=== PATIENT | male | born 1945 | race Caucasian/White ===

== ENCOUNTER 2016-06-09 12:15 | Emergency (ER) | payer OTHER, MEDICARE ==
[~2016-06-09] VITALS: Ht 170.2 cm; Wt 81.6 kg
[~2016-06-09 12:15] MED LIST: ALDACTONE25 MG PO; FLAG500 PO; FOLPLEX 2.2 TA1 EACH PO; INVOKANA300 MG PO; IRON325 M3 PO; JANUMET 50-1,01 EACH PO; JANUMET 500 MG-1 TAB PO; LACTULOSE20 GM/30 M PO; LANTUS SOL100 UNIT/1 SC; LISINOPRIL2.5 MG PO; MEPHYTON5 M1 PO; PROPRANOLOL HCL10 M1 PO; PROTONIX40 M3 PO; TRAMADOL HCL50 M1 PO; TRAZODONE HCL50 M1 PO; VITAMIN D1000 UNIT PO; VITAMIN D250000 UNIT PO; VITAMIN D50000 IU PO; VOLTAREN100 GM TOP; ZOCOR40 M1 PO
--- NOTE | 2016-06-09 12:38 | ED GI/GU/ABDOMINAL COMPLAINT ---
See Addendum History of Present Illness General Chief Complaint: Abdominal Pain/Flank Pain Stated Complaint: L FLANK PAIN, RECENT PASSING OF KIDNEY STONE Source: patient, family Exam Limitations: no limitations Vital Signs & Intake/Output Vital Signs & Intake/Output Vital Signs Date Time Temp Pulse Resp B/P Pulse O2 O2 Flow FiO2 Ox Delivery Rate 06/09 1459 99.0 78 20 163/78 93 Room Air 06/09 1316 98.7 80 20 147/70 96 Room Air 06/09 1224 98.9 79 18 148/71 98 Room Air Room Air Allergies Coded Allergies: NO KNOWN ALLERGIES (01/10/15) Reconcile Medications Cholecalciferol (Vitamin D3) (Vitamin D) 1,000 UNIT TABLET 4 TAB PO DAILY VITAMIN SUPPORT (Reported) Cyanocobalamin/FA/Pyridoxine (Folplex 2.2 Tablet) 500 MCG-2.2 MG-25 MG TABLET 1 TAB PO DAILY SUPPLEMENT (Reported) Diclofenac Sodium (Voltaren) 100 GM GEL..GRAM. 1 GM TOP 4 TIMES/DAY Hip pain apply to affected area(s) Ergocalciferol (Vitamin D2) (Vitamin D2) 50,000 UNIT CAPSULE 1 CAP PO QTHURS BONE STRENGTH (Reported) Ferrous Sulfate (IRON) 325 MG (65 MG IRON) TABLET 1 TAB PO DAILY SUPPLEMENT ( Reported) Insulin Glargine,Hum.rec.anlog (Lantus Solostar) 100 UNIT/ML (3 ML) INSULN.PEN 20 UNIT SC QPM DIABETES (Reported) Lactulose 20 GM/30 ML SOLUTION 20 GM PO TID HIGH AMMONIA LEVELS Oxycodone HCl 5 MG TABLET 1 TAB PO BIDP PRN PAIN (Reported) Pantoprazole Sodium (Protonix) 40 MG TABLET.DR 1 TAB PO DAILY ACID REFLUX ( Reported) Phytonadione (Mephyton) 5 MG TABLET 2 TAB PO DAILY VITAMIN K FOR BLEEDING RISK Propranolol HCl 10 MG TABLET 1 TAB PO BID BP (Reported) Rifaximin (Xifaxan) 550 MG TABLET 1 TAB PO BID UNKNOWN (Reported) Simvastatin (Zocor*) 40 MG TABLET 1 TAB PO QPM CHOLESTEROL (Reported) Sitagliptin Phos/Metformin HCl (Janumet 50-1,000 MG Tablet) 1 EACH TABLET 1 TAB PO BID diabetes mellitus Spironolactone (Aldactone) 25 MG TABLET 2 TAB PO 1600 ABDOMINAL ASCITES Tramadol HCl 50 MG TABLET 1 TAB PO Q6P PRN Pain > 7/10 Trazodone HCl 50 MG TABLET 1 TAB PO QPM sleep (Reported) Triage Note: TRIAGE: 70 Y/O MALE PRESETNS WITH RECENT EPISODE OF PASSING KIDNEY STONE AND HEMATURIA. REPORTS AFTER URINALYSIS, "SMALL CRYSTALS WERE STILL SEEN". REPORTS R SIDED FLANK PRESSURE 5-6/10. "IT FEELS LIKE SOMEONE IS PUSHING ON IT." ALSO REPORTS UPON WAKING THIS MORNING, BLOOD NOTED IN RIGHT EAR, RIGHT NARE, AND WAS ABLE TO PRODUCE BLOODY SPUTUM - "NOT MUCH THOUGH." * PATIENT IN WHEELCHAIR SECONADRY TO RECENT FALL ON SATURDAY. FALL RISK BAND APPLIED. Triage Nurses Notes Reviewed? yes HPI: 70-year-old male arrived to triage room 9 for evaluation of abdominal pain. He reports he was seen by Dr. Kimbrough this week for evaluation of the possibility of a kidney stone. He was found to have blood in his urine. He believes he passed the kidney stone on Saturday evening. Last night he started with right upper quadrant abdominal pressure. Some nausea this morning. The pain is intermittent and he describes mildpressure, not really a pain. He denies vomiting or diarrhea. He denies constipation. He denies any fever or chills, chest pain or shortness of breath. He has a history of [place] and has elevated ammonia levels in the past with normal mentation. Last BM last night- soft brown and last ate last evening. no urinary symptoms. (DA ROMERO APRN) Past History Travel History Traveled to [place] past 21 day No Medical History Any Pertinent Medical History? see below for history Neurological: restless leg syndrome EENT: NONE Cardiovascular: hypertension, hyperlipidemia, MITRAL VALVE PROLAPSE Chest pain syndrome Respiratory: NONE Gastrointestinal: GERD, upper GI bleed, Colonic Polyp ASCITES Hepatic: cirrhosis, FATTY LIVER Renal: NONE Musculoskeletal: psoariatic arthritis, spinal stenosis Psychiatric: NONE Endocrine: diabetes Blood Disorders: NONE Cancer(s): NONE WAREHOUSE HELPER/Reproductive: NONE History of MRSA: No History of VRE: No History of CDIFF: No Pneumonia Vaccine: 01/09/15 Surgical History Surgical History: cervical fusion Psychosocial History Who do you live with Spouse Services at Home None What is your primary language Setswana Tobacco Use: Never used ETOH Use: denies use Illicit Drug Use: denies illicit drug use Family History Family History, If Any: MOTHER (Breast cancer needed colectomy). FATHER (Skin CA of unknown type). . Relation not specified for: FH: diabetes mellitus Hx Contributory? No (DA ROMERO APRN) Review of Systems Review of Systems Constitutional: Reports: no symptoms. EENTM: Reports: no symptoms. Respiratory: Reports: no symptoms. Cardiovascular: Reports: no symptoms. GI: Reports: see HPI, abdominal pain, nausea. Genitourinary: Reports: no symptoms. Musculoskeletal: Reports: no symptoms. Skin: Reports: no symptoms. Neurological/Psychological: Reports: no symptoms. Hematologic/Endocrine: Reports: no symptoms. Immunologic/Allergic: Reports: no symptoms. All Other Systems: Reviewed and Negative (DA ROMERO APRN) Physical Exam Physical Exam General Appearance: well developed/nourished, no apparent distress, alert, awake Head: atraumatic, normal appearance Eyes: Bilateral: normal appearance, PERRL, EOMI. Neck: normal inspection, supple, full range of motion Respiratory: normal breath sounds, chest non-tender, no respiratory distress Cardiovascular: regular rate/rhythm Peripheral Pulses: 2+ radial (R), 2+ radial (L) Gastrointestinal: normal bowel sounds, soft, non-tender, no organomegaly Back: normal inspection, normal range of motion Extremities: normal range of motion, pelvis stable Neurologic/Psych: no motor/sensory deficits, awake, alert, oriented x 3, normal gait, normal mood/affect Skin: intact, normal color, warm/dry Core Measures ACS in differential dx? No Severe Sepsis Present: No Septic Shock Present: No (DA ROMERO APRN) Progress Differential Diagnosis: hepatitis, ureterolithiasis, LIVER PATHOLOGY Plan of Care: Orders Procedure Date/time Status EKG 06/09 1243 Active Add-on Test (ER Only) 06/09 1242 Active AMMONIA LEVEL 06/09 1242 Complete Saline Lock 06/09 1235 Active CULTURE,URINE 06/09 1235 Active URINALYSIS 06/09 1235 Complete TROPONIN LEVEL 06/09 1235 Complete LIPASE 06/09 1235 Complete COMPREHENSIVE METABOLIC PANEL 06/09 1235 Complete CBC WITHOUT DIFFERENTIAL 06/09 1235 Complete AMYLASE 06/09 1235 Complete Laboratory Tests 06/09/16 1450: Urine Color YEL, Urine Clarity HAZY H, Urine pH 6.0, Ur Specific Witt 1.020, Urine Protein NEG, Urine Ketones NEG, Urine Nitrite NEG, Urine Bilirubin NEG, Urine Urobilinogen 0.2, Ur Leukocyte Esterase NEG, Ur Microscopic SEDIMENT EXAMINED, Urine RBC >75 H, Urine WBC RARE, Ur Epithelial Cells RARE, Urine Crystals 1+ CA OX H, Urine Hemoglobin LARGE H, Urine Glucose NEG 06/09/16 1248: Ammonia 76 H 06/09/16 1248: Anion Gap 11, Estimated GFR > 60, BUN/Creatinine Ratio 11.1, Glucose 206 H, Calcium 9.1, Total Bilirubin 1.1, AST 48, ALT 45, Alkaline Phosphatase 114, Troponin I < 0.01, Total Protein 6.7, Albumin 3.1 L, Globulin 3.6, Albumin/ Globulin Ratio 0.9 L, Amylase 59, Lipase 172, CBC w Diff NO MAN DIFF REQ, RBC 3.39 L, MCV 87.3, MCH 29.2, RDW 15.4 H, MPV 7.5, Gran % 71.9, Lymphocytes % 12.7 L, Monocytes % 10.7 H, Eosinophils % 4.6, Basophils % 0.1, Absolute Granulocytes 4.9, Absolute Lymphocytes 0.9 L, Absolute Monocytes 0.7 H, Absolute Eosinophils 0.3, Absolute Basophils 0, PUBS MCHC 33.4 Microbiology 06/09 1450 URINE ROUT: Urine Culture - RECD Initial ED EKG: Sinus rhythm with nonspecific ST-T wave changes no change from previous. Prior EKG: unchanged Comments: Explained blood work results to family and patient. CT scan results pending. PATIENT: CUATE RIZVI PRESENT AGE: 70 PATIENT ACCOUNT NO: [id number] : 45 LOCATION: [facility] ORDERING PHYSICIAN: DA ROMERO APRN SERVICE DATE: 06/09/16 EXAM TYPE: CAT - CT ABD & PELVIS W IV CONTRAST EXAMINATION: CT ABDOMEN AND PELVIS WITH CONTRAST CLINICAL INFORMATION: 70-year-old man with elevated ammonia level and right upper quadrant pain. COMPARISON: 09/13/2015 ultrasound, 01/10/2015 CT TECHNIQUE: Multidetector volumetric imaging was performed of the abdomen and pelvis before and after the IV administration of 95 mL of Optiray 320 intravenous contrast. Sagittal and coronal reformatted images were obtained on the technologist's workstation. DLP: 683 mGy-cm FINDINGS: The lung bases are clear. There are esophageal varices seen around the lower esophagus. These were also present on the prior CT. There is mild periportal edema. There are markedly dilated perisplenic veins with a left splenorenal shunt. There are dilated veins along the lesser curve of the stomach. Overall, findings suggest elevated portal venous pressure. Trace fluid is seen around the liver and there is trace ascites in the deep pelvis as well. There may be mild wall thickening of the second and third part of the duodenum. There is moderate splenomegaly. No focal hepatic lesion is visible. The pancreas, adrenals, and kidneys are otherwise normal. There are gallstones seen within a partially contracted gallbladder. The gallbladder wall itself appears edematous. Nondilated loops of large and small bowel are unremarkable in appearance. The appendix and terminal ileum are not inflamed. The prostate, seminal vesicles, and bladder are normal in appearance. IMPRESSION: 1. There may be mild wall thickening of the second and third part of the duodenum. 2. Additional imaging findings are similar to the prior exam and suggest elevated portal venous pressure with a esophageal and gastrohepatic varices, a left splenorenal shunt, and a small amount of ascites. DICTATED BY: HOLLAND VILLA MD DATE/TIME DICTATED:06/09/161440 BATCH TANK CONTROLLER:VERNELL DATE/TIME TRANSCRIBED:06/09/161440 Cuate and his understand CAT scan results. Cuate does not want to be admitted and his is in agreement. He ambualtes with no issues. Mentating well. He knows he is suppose to take Lactulose but doesn't because of inconvenience. He understands the need for it and will start to adhere to call regimen. Case Discussed with Dr. Mo. (DA ROMERO APRN) Departure Departure Time of Disposition: 1514 Disposition: HOME OR SELF CARE Condition: Stable Clinical Impression Primary Impression: Abdominal pain Qualifiers: Abdominal location: right upper quadrant Qualified Code: R10.11 - Right upper quadrant pain Secondary Impressions: Increased ammonia level Referrals: NNEKA PRADO,DORIAN Morrison (PCP/Family) Additional Instructions: Follow-up with Dr. Kimbrough and GI this week. Take lactulose as directed when you get home. Return to the emergency department for any increased pain, fever, altered mental status. Please return for any concerning symptoms. Departure Forms: Customer Survey General Discharge Information (DA ROMERO APRN) PA/TROLLEY CAR OPERATOR Co-Sign Statement Statement: ED Attending supervision documentation- x I saw and evaluated the patient. I have also reviewed all the pertinent lab results and diagnostic results. I agree with the findings and the plan of care as documented in the PA's/TROLLEY CAR OPERATOR's documentation. [] I have reviewed the ED Record and agree with the PA's/TROLLEY CAR OPERATOR's documentation. [] Additions or exceptions (if any) to the PAs/TROLLEY CAR OPERATOR's note and plan are summarized below: [] (PHUC PRADO,LULU)
[2016-06-09 13:11] LABS: ABSOLUTE BASOPHIL COUNT 0 /CUMM (0.0-0.2); ABSOLUTE EOSINOPHIL COUNT 0.3 /CUMM (0.0-0.7); ABSOLUTE GRANULOCYTE CT 4.9 /CUMM (1.4-6.5); ABSOLUTE LYMPH COUNT 0.9 /CUMM (1.2-3.4); ABSOLUTE MONOCYTE COUNT 0.7 /CUMM (0.10-0.60); BASOPHIL % 0.1 % (0.0-2.0); EOSINOPHIL % 4.6 % (0-5); HEMATOCRIT 29.6 % (42-52); MEAN CORPUSCULAR HGB 29.2 PG (27.0-31.0); MEAN CORPUSCULAR HGB CONC 33.4 G/DL (33.0-37.0); MEAN CORPUSCULAR VOLUME 87.3 FL (80.0-94.0); MEAN PLATELET VOLUME 7.5 FL (7.4-10.4); RBC DISTRIBUTION WIDTH 15.4 % (11.5-14.5); RED BLOOD CELL CT 3.39 /CUMM (4.70-6.10); WHITE BLOOD CELL COUNT 6.8 /CUMM (4.8-10.8)
[2016-06-09 13:12] LABS: GRANULOCYTE % 71.9 % (42.2-75.2)
[2016-06-09 13:14] LABS: PLATELET COUNT 78 /CUMM (130-400)
[2016-06-09] MEDS ORDERED: OXYCODONE HCL5 M1 PO (14:02)
[2016-06-09] MEDS ORDERED: XIFAXAN550 M1 PO (14:06)
--- NOTE | 2016-06-09 14:51 | CT SCAN REPORT ---
EXAMINATION: CT ABDOMEN AND PELVIS WITH CONTRAST CLINICAL INFORMATION: 70-year-old man with elevated ammonia level and right upper quadrant pain. COMPARISON: 09/13/2015 ultrasound, 01/10/2015 CT TECHNIQUE: Multidetector volumetric imaging was performed of the abdomen and pelvis before and after the IV administration of 95 mL of Optiray 320 intravenous contrast. Sagittal and coronal reformatted images were obtained on the technologist's workstation. DLP: 683 mGy-cm FINDINGS: The lung bases are clear. There are esophageal varices seen around the lower esophagus. These were also present on the prior CT. There is mild periportal edema. There are markedly dilated perisplenic veins with a left splenorenal shunt. There are dilated veins along the lesser curve of the stomach. Overall, findings suggest elevated portal venous pressure. Trace fluid is seen around the liver and there is trace ascites in the deep pelvis as well. There may be mild wall thickening of the second and third part of the duodenum. There is moderate splenomegaly. No focal hepatic lesion is visible. The pancreas, adrenals, and kidneys are otherwise normal. There are gallstones seen within a partially contracted gallbladder. The gallbladder wall itself appears edematous. Nondilated loops of large and small bowel are unremarkable in appearance. The appendix and terminal ileum are not inflamed. The prostate, seminal vesicles, and bladder are normal in appearance. IMPRESSION: 1. There may be mild wall thickening of the second and third part of the duodenum. 2. Additional imaging findings are similar to the prior exam and suggest elevated portal venous pressure with a esophageal and gastrohepatic varices, a left splenorenal shunt, and a small amount of ascites.
[2016-06-09 14:59] VITALS: BP 163/78
== END 2016-06-09 15:46 ==
LOC: ERH 12:15
PROVIDERS: Nurse Practitioner Family
DX: R10.11 Right upper quadrant pain (principal); R82.99 Other abnormal findings in urine; R31.9 Hematuria, unspecified
CPT/HCPCS: 74177; 81001; 87086; 93005; 93010; 96361; 96374; J2405

== ENCOUNTER 2017-05-25 10:02 | Inpatient (IN) | payer OTHER, MEDICARE ==
[~2017-05-25] VITALS: Ht 167.6 cm; Wt 81.6 kg
[~2017-05-25 10:02] MED LIST changes: +FISH OIL 1,2001 EACH PO; +FOLIC ACID1 M1 PO; +MILK THISTLE175 M1 PO; +OXYCODONE HCL5 M1 PO; +PROBIOTIC1 EACH PO; -VITAMIN D1000 UNIT PO; +VITAMIN D2000 UNI1 PO; +XIFAXAN550 M1 PO
--- NOTE | 2017-05-25 10:23 | ED GENERAL ADULT ---
History of Present Illness General Chief Complaint: General Adult Stated Complaint: WEAKNESS Source: patient, family, old records Exam Limitations: no limitations Vital Signs & Intake/Output Vital Signs & Intake/Output Vital Signs Date Time Temp Pulse Resp B/P B/P Pulse O2 O2 Flow FiO2 Mean Ox Delivery Rate 05/25 1448 Room Air 05/25 1229 97.6 76 18 133/82 98 Room Air 05/25 1011 96.9 88 18 118/78 98 Room Air Room Air Allergies Coded Allergies: No Known Allergies (02/06/17) Reconcile Medications Cholecalciferol (Vitamin D3) (Vitamin D) 2,000 UNIT TABLET 1 TAB PO DAILY VITAMIN SUPPORT (Reported) Ergocalciferol (Vitamin D2) (Vitamin D2) 50,000 UNIT CAPSULE 1 CAP PO QTHURS BONE STRENGTH (Reported) Ferrous Sulfate (IRON) 325 MG (65 MG IRON) TABLET 1 TAB PO DAILY SUPPLEMENT ( Reported) Fish Oil/Dha/Epa (Fish Oil 1,200 MG Fish Oil) 1,200 MG-144 MG-216 MG CAPSULE 1 CAP PO DAILY SUPPLEMENT (Reported) Folic Acid 1 MG TABLET 1 TAB PO DAILY VITAMIN SUPPORT (Reported) Insulin Glargine,Hum.rec.anlog (Lantus Solostar) 100 UNIT/ML (3 ML) INSULN.PEN 20 UNIT SC QPM DIABETES (Reported) Lactobacillus Acidophilus (Probiotic) 10 BILLION CELL CAPSULE 1 CAP PO DAILY GI (Reported) Lactulose 20 GM/30 ML SOLUTION 20 GM PO DAILY Decrease the am[place] Milk Thistle Seed Extract (Milk Thistle) 175 MG CAPSULE 1 CAP PO DAILY SUPPLEMENT (Reported) Phytonadione (Mephyton) 5 MG TABLET 2 TAB PO DAILY VITAMIN K FOR BLEEDING RISK Propranolol HCl 10 MG TABLET 1 TAB PO BID BP (Reported) Rifaximin (Xifaxan) 550 MG TABLET 1 TAB PO BID UNKNOWN (Reported) Simvastatin (Zocor*) 40 MG TABLET 1 TAB PO QPM CHOLESTEROL (Reported) Sitagliptin Phos/Metformin HCl (Janumet 50-1,000 MG Tablet) 1 EACH TABLET 1 TAB PO BID diabetes mellitus Trazodone HCl 50 MG TABLET 1 TAB PO QPM sleep (Reported) Triage Note: PT TO ED WITH C/O "I HAVE FELT TIRED ON AND OFF SINCE SATURDAY". HX ANEMIA, CIRRHOSIS OF LIVER, ON DIURETICS PER FAMILY. "HE TAKES LACTULOSE". Triage Nurses Notes Reviewed? yes Onset: Gradual Duration: week(s): Timing: recent history Injury Environment: home Severity: moderate HPI: 71YO male with hx of non alcoholic fatty liver, hepatic encephalopathy on lactulose, anemia, thrombocytopenia, HTN presents to ED complaining of worsening fatigue for the past week. Patient's states that he has been on Lasix and spironolactone for lower extremity and abdominal swelling, recently discontinued on saturday as swelling had improved and they were worried about dehydration. states that patient has been more confused beginning Saturday, will forget things they recently talked about, is unsure about what time it is. They deny recent fall or head trauma, abdominal pain, chest pain, dyspnea, cough, fevers, chills. (Tenisha Jaimes) Past History Travel History Traveled to [place] past 21 day No Medical History Any Pertinent Medical History? see below for history Neurological: dizziness, restless leg syndrome EENT: NONE Cardiovascular: hypertension, hyperlipidemia, MITRAL VALVE PROLAPSE Chest pain syndrome Respiratory: NONE Gastrointestinal: GERD, upper GI bleed, Colonic Polyp ASCITES Hepatic: cirrhosis, FATTY LIVER Renal: NONE Musculoskeletal: psoariatic arthritis, spinal stenosis Psychiatric: NONE Endocrine: diabetes Blood Disorders: NONE Cancer(s): NONE BANK EXAMINER/Reproductive: NONE History of MRSA: No History of VRE: No History of CDIFF: No Surgical History Surgical History: cervical fusion THORACIC FUSION Psychosocial History Who do you live with Spouse Services at Home None What is your primary language Macedonian Tobacco Use: Never used ETOH Use: denies use Illicit Drug Use: denies illicit drug use Family History Family History, If Any: MOTHER (Breast cancer needed colectomy). FATHER (Skin CA of unknown type). . Relation not specified for: FH: diabetes mellitus Hx Contributory? No (Tenisha Jaimes) Review of Systems Review of Systems Constitutional: Reports: see HPI. EENTM: Reports: no symptoms. Respiratory: Reports: no symptoms. Cardiovascular: Reports: no symptoms. GI: Reports: see HPI. Genitourinary: Reports: no symptoms. Musculoskeletal: Reports: see HPI. Skin: Reports: no symptoms. Neurological/Psychological: Reports: see HPI. Hematologic/Endocrine: Reports: no symptoms. Immunologic/Allergic: Reports: no symptoms. All Other Systems: Reviewed and Negative (Tenisha Jaimes) Physical Exam Physical Exam General Appearance: well developed/nourished, no apparent distress, alert, awake Head: atraumatic, normal appearance Eyes: Bilateral: normal appearance, PERRL, EOMI. Ears, Nose, Throat: normal pharynx, hearing grossly normal Neck: normal inspection, supple, full range of motion Respiratory: normal breath sounds, no respiratory distress, lungs clear Cardiovascular: regular rate/rhythm, normal peripheral pulses Peripheral Pulses: 2+ radial (R), 2+ radial (L) Gastrointestinal: normal bowel sounds, soft, non-tender, no organomegaly, mild distention Back: normal inspection, normal range of motion Extremities: normal inspection, normal range of motion, no edema Neurologic/Psych: no motor/sensory deficits, awake, alert, oriented x 3, normal mood/affect, psychiatry adult physician II-XII nml as tested Skin: intact, warm/dry, pallor Core Measures ACS in differential dx? Yes CVA/TIA Diagnosis: No Sepsis Present: No Sepsis Focused Exam Completed? No (Laura MOORE,Tenisha Brownlee) Progress Differential Diagnoses I considered the following diagnoses in my evaluation of the patient: [Hepatic encephalopathy, acute blood loss anemia, UTI, ascites, SBP] Plan of Care: Orders Procedure Date/time Status Consistent Carbohydrate 3 05/26 B Active Pathway - chart 05/25 1622 Active House Staff 05/25 1622 Active ED Holding Orders 05/25 1601 Active Admit to inpatient 05/25 1601 Active Vital Signs 05/25 1601 Active Code Status 05/25 1601 Active Patient Data 05/25 1528 Active CULTURE,URINE 05/25 1521 Active URINALYSIS 05/25 1521 Active LACTIC ACID 05/25 1313 Complete LEUKOCYTE POOR (PACKED CELLS) 05/25 1252 Active AMMONIA 05/25 1015 Complete PARTIAL THROMBOPLASTIN TIME 05/25 1014 Complete PROTHROMBIN TIME 05/25 1014 Complete TYPE & SCREEN (NOT X-MATCH) 05/25 1014 Active LACTIC ACID 05/25 1013 Complete RAPID VIRAL INFLUENZA A 05/25 1011 Complete TROPONIN LEVEL 05/25 1011 Complete MAGNESIUM 05/25 1011 Complete COMPREHENSIVE METABOLIC PANEL 05/25 1011 Complete CBC WITHOUT DIFFERENTIAL 05/25 1011 Complete EKG 05/25 1011 Active VTE Mechanical Prophylaxis 05/25 UNK Active Intake & Output 05/25 UNK Active Current Medications Sig/Krista Start time Last Medication Dose Stop Time Status Admin Sodium Chloride 1,000 ML ONCE ONE 05/25 1515 AC (Normal Saline 0.9%) 05/25 2154 Laboratory Tests 05/25/17 1346: Lactic Acid 4.0 H 05/25/17 1130: Ammonia 96 H 05/25/17 1020: Lactic Acid 2.8 H 05/25/17 1020: Anion Gap 11, Estimated GFR > 60, BUN/Creatinine Ratio 18.6, Glucose 250 H, Calcium 9.0, Magnesium 1.7, Total Bilirubin 0.9, AST 48, ALT 36, Alkaline Phosphatase 152 H, Troponin I < 0.01, Total Protein 6.2 L, Albumin 2.9 L, Globulin 3.3, Albumin/Globulin Ratio 0.9 L, PT 15.2 H, INR 1.39 H, APTT 35, CBC w Diff NO MAN DIFF REQ, RBC 2.77 L, MCV 86.3, MCH 27.3, MCHC 31.7 L, RDW 16.2 H, MPV 8.0, Gran % 71.3, Lymphocytes % 14.6 L, Monocytes % 9.3, Eosinophils % 4.5, Basophils % 0.3, Absolute Granulocytes 3.7, Absolute Lymphocytes 0.8 L, Absolute Monocytes 0.5, Absolute Eosinophils 0.2, Absolute Basophils 0 Microbiology 05/25 1521 URINE ROUT: Urine Culture - ORD 05/25 1130 NASOPHARYN: Influenza Virus A & B Rapid Smear - COMP Patient with low H/H compared to prior studies. Patient also with elevated ammonia. Electrolytes are within normal limits, BUN/creatinine within normal limits. Spoke with Dr. Eaton regarding this patient -recommends ultrasound to further assess for ascites, will require diagnostic tap to rule out SBP if ascites present. No blood transfusion is required at this time per Dr. Eaton. Dr. Eaton recommended hospital admission for gastroenterology consult given patient's confusion in setting of chronic liver pathology. Patient requires possible IV fluids, monitoring of electrolytes and mental status, further gastroenterology workup. Ultrasound shows no ascites. Dr. Carvalho spoke with hospitalist regarding this patient's general medicine admission. Diagnostic Imaging: Viewed by Me: Radiology Read, Ultrasound. Discussed w/RAD: Radiology Read, Ultrasound. Radiology Impression: PATIENT: CUATE RIZVI PRESENT AGE: 71 PATIENT ACCOUNT NO: [id number] : 45 LOCATION: [facility] ORDERING PHYSICIAN: Tenisha MOORE SERVICE DATE: 05/25/17132 EXAM TYPE: US - US-COMPLETE ABDOMEN EXAMINATION: US ABDOMEN COMPLETE CLINICAL INFORMATION: Altered mental status and weakness. Evaluate liver and evaluate for ascites. History of liver disease. COMPARISON: Abdomen ultrasound from 02/27/2017. Abdomen CT from 02/06/2017. TECHNIQUE: Real-time imaging of the abdominal viscera. FINDINGS: PANCREAS: Normal. ABDOMINAL AORTA: The aorta is suboptimally visualized (obscured by bowel gas). INFERIOR VENA CAVA: Visualized portions are normal. LIVER: Liver has coarse, hyperechoic echotexture and nodular contour, consistent with cirrhosis. No evidence of hepatic mass or intrahepatic bile duct dilatation. GALLBLADDER: Gallbladder contains a few mobile, calcified stones. No gallbladder wall edema or pericholecystic fluid. COMMON BILE DUCT: Normal in caliber measuring 0.3 cm in diameter. RIGHT KIDNEY: Normal. No hydronephrosis. No renal calculi or focal parenchymal lesions. The kidney measures 11.3 cm in maximum dimension. LEFT KIDNEY: Normal. No hydronephrosis. No renal calculi or focal parenchymal lesions. The kidney measures 11.8 cm in maximum dimension. SPLEEN: Spleen measures up to 14.1 cm maximum dimension. The splenic vein appears mildly dilated. FREE FLUID: None. IMPRESSION: 1. Hepatic cirrhosis and splenomegaly. No ascites or other new finding compared to 02/27/2017. 2. Cholelithiasis without evidence of acute cholecystitis. DICTATED BY: Lucas Parra MD DATE/TIME DICTATED:05/25/171457 TANK CAR LOADER:VERNELL DATE/TIME TRANSCRIBED:05/25/171457 CONFIDENTIAL, DO NOT COPY WITHOUT APPROPRIATE AUTHORIZATION. <Electronically signed in Other Vendor System> SIGNED BY: Lucas Parra MD 05/25/17 1500 CXR Impression: PATIENT: CUATE RIZVI PRESENT AGE: 71 PATIENT ACCOUNT NO: [id number] : 45 LOCATION: [facility] ORDERING PHYSICIAN: Tenisha MOORE SERVICE DATE: 05/25/17105 EXAM TYPE: RAD - XRY-CHEST XRAY, TWO VIEWS EXAMINATION: XR CHEST CLINICAL INFORMATION: Ascites and liver failure. Evaluate for pleural effusion or pulmonary congestion. COMPARISON: CXR from 02/06/2017 TECHNIQUE: Chest, 2 views FINDINGS: The lungs are well-inflated and clear. Trachea is midline in position. No evidence of interstitial disease, focal consolidation, mass, pneumothorax or pleural effusion. The cardiomediastinal silhouette and pulmonary braulio have normal size and contour. Pulmonary vessels are normal in caliber. The visualized cervical spine fusion hardware appears intact. No acute findings in the degenerated spine. 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 The examined upper abdomen is unremarkable. IMPRESSION: No acute pulmonary disease. No evidence of pulmonary venous hypertension or pleural effusion. DICTATED BY: Lucas Parra MD DATE/TIME DICTATED:05/25/171123 TANK CAR LOADER:VERNELL DATE/TIME TRANSCRIBED:05/25/171123 CONFIDENTIAL, DO NOT COPY WITHOUT APPROPRIATE AUTHORIZATION. <Electronically signed in Other Vendor System> SIGNED BY: Lucas Parra MD 05/25/17 1130 Initial ED EKG: sinus rhythm @68bpm, LVH, nonspecific ST changes Prior EKG: unchanged (02/07/17) (Tenisha Jaimes) Departure Departure Disposition: STILL A PATIENT Condition: Stable Clinical Impression Primary Impression: Hepatic encephalopathy Secondary Impressions: Confusion, Lactic acidosis, Weakness Referrals: Priscila PRADO,Reymundo Morrison (PCP/Family) Departure Forms: Customer Survey General Discharge Information Admission Note Spoke With: Wisam Flowers MD Documentation of Exam: Documentation of any treatments & extenuating circumstances including Concerns Regarding Discharge (functional status, medication knowledge or non-compliance, living conditions, etc.) that warrant an admission rather than observation: [ Confusion in setting of hepatic encephalopathy requiring lactulose, possible IV fluids, close monitoring of electrolytes, gastroenterology consult, stable anemia requiring repeat H/H, weakness, premature discharge would be medically unsafe, it is unlikely this patient will recuperate within 48 hours] (Tenisha Jiames) PA/SELLING MANAGER Co-Sign Statement Statement: ED Attending supervision documentation- [x] I saw and evaluated the patient. I have also reviewed all the pertinent lab results and diagnostic results. I agree with the findings and the plan of care as documented in the PA's/SELLING MANAGER's documentation. [] I have reviewed the ED Record and agree with the PA's/SELLING MANAGER's documentation. [] Additions or exceptions (if any) to the PAs/SELLING MANAGER's note and plan are summarized below: [] 71-year-old male with a history of hepatic encephalopathy. He presents to the emergency department with increasing confusion. Labs revel significant lactic acidosis and elevated ammonia level. (Deven PORTER,Gian Mcdaniel) Critical Care Note Critical Care Note Critical Care Time: 30-74 min (Laura MOORE,Tenisha Brownlee)
[2017-05-25 10:48] LABS: PT 15.2 SEC (9.4-12.5); PTT 35 SEC (25-37)
[2017-05-25 10:53] LABS: ABSOLUTE BASOPHIL COUNT 0 /CUMM (0.0-0.2); ABSOLUTE EOSINOPHIL COUNT 0.2 /CUMM (0.0-0.7); ABSOLUTE GRANULOCYTE CT 3.7 /CUMM (1.4-6.5); ABSOLUTE LYMPH COUNT 0.8 /CUMM (1.2-3.4); ABSOLUTE MONOCYTE COUNT 0.5 /CUMM (0.10-0.60); BASOPHIL % 0.3 % (0.0-2.0); EOSINOPHIL % 4.5 % (0-5); HEMATOCRIT 23.9 % (42-52); MEAN CORPUSCULAR HGB 27.3 PG (27.0-31.0); MEAN CORPUSCULAR HGB CONC 31.7 G/DL (33.0-37.0); MEAN CORPUSCULAR VOLUME 86.3 FL (80.0-94.0); RBC DISTRIBUTION WIDTH 16.2 % (11.5-14.5); RED BLOOD CELL CT 2.77 /CUMM (4.70-6.10); WHITE BLOOD CELL COUNT 5.2 /CUMM (4.8-10.8)
[2017-05-25 10:59] LABS: GRANULOCYTE % 71.3 % (42.2-75.2)
[2017-05-25 11:00] LABS: PLATELET COUNT 97 /CUMM (130-400)
--- NOTE | 2017-05-25 11:30 | RADIOLOGY REPORT ---
EXAMINATION: XR CHEST CLINICAL INFORMATION: Ascites and liver failure. Evaluate for pleural effusion or pulmonary congestion. COMPARISON: CXR from 02/06/2017 TECHNIQUE: Chest, 2 views FINDINGS: The lungs are well-inflated and clear. Trachea is midline in position. No evidence of interstitial disease, focal consolidation, mass, pneumothorax or pleural effusion. The cardiomediastinal silhouette and pulmonary braulio have normal size and contour. Pulmonary vessels are normal in caliber. The visualized cervical spine fusion hardware appears intact. No acute findings in the degenerated spine. 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 The examined upper abdomen is unremarkable. IMPRESSION: No acute pulmonary disease. No evidence of pulmonary venous hypertension or pleural effusion.
--- NOTE | 2017-05-25 15:08 | ULTRASOUND REPORT ---
EXAMINATION: US ABDOMEN COMPLETE CLINICAL INFORMATION: Altered mental status and weakness. Evaluate liver and evaluate for ascites. History of liver disease. COMPARISON: Abdomen ultrasound from 02/27/2017. Abdomen CT from 02/06/2017. TECHNIQUE: Real-time imaging of the abdominal viscera. FINDINGS: PANCREAS: Normal. ABDOMINAL AORTA: The aorta is suboptimally visualized (obscured by bowel gas). INFERIOR VENA CAVA: Visualized portions are normal. LIVER: Liver has coarse, hyperechoic echotexture and nodular contour, consistent with cirrhosis. No evidence of hepatic mass or intrahepatic bile duct dilatation. GALLBLADDER: Gallbladder contains a few mobile, calcified stones. No gallbladder wall edema or pericholecystic fluid. COMMON BILE DUCT: Normal in caliber measuring 0.3 cm in diameter. RIGHT KIDNEY: Normal. No hydronephrosis. No renal calculi or focal parenchymal lesions. The kidney measures 11.3 cm in maximum dimension. LEFT KIDNEY: Normal. No hydronephrosis. No renal calculi or focal parenchymal lesions. The kidney measures 11.8 cm in maximum dimension. SPLEEN: Spleen measures up to 14.1 cm maximum dimension. The splenic vein appears mildly dilated. FREE FLUID: None. IMPRESSION: 1. Hepatic cirrhosis and splenomegaly. No ascites or other new finding compared to 02/27/2017. 2. Cholelithiasis without evidence of acute cholecystitis.
--- NOTE | 2017-05-25 15:56 | History & Physical ---
[place] MD,[facility] 05/25/17 1556: General Information and HPI MD Statement: I have seen and personally examined CUATE RIZVI and documented this H&P. The patient is a 71 year old M who presented with a patient stated chief complaint of worsening fatigue for the past one week. Source of Information: patient, family Exam Limitations: clinical condition History of Present Illness: 71-year-old male with past medical history significant for RM, history of GI bleed, history of ascites, type 2 diabetes mellitus, sciatica arthritis, gastroesophageal reflux disease, mitral valve prolapse, RLS, cervical fusion surgery and spinal stenosis, hepatic encephalopathy on lactulose, anemia, thrombocytopenia, hypertension came to emergency department with chief complaint of worsening fatigue for the last 1 week. History was also confirmed in the presence of . Patient's last admission in [facility] was January 2017 and stayed from 02/06/2017 to 02/08/17 for positive troponin I secondary to demand ischemia, gastroenteritis, and thrombocytopenia. According to patient's he has been on Lasix and spironalactone for lower extremity edema and abdominal swelling which was recently discontinued on Saturday as the swelling was improving. As per patient has been more confused beginning Saturday. His recent memory was more impaired as he would forget things that he recently talked about. Patient denied any recent fall or head trauma. Patient had waxing and waning symptoms of confusion and lethargy for the last 1 week. Review of system was negative for any acute headache, visual change, some weakness, nausea, vomiting, chest pain, shortness of breath, rash, fever, change in urinary or bowel habits. Patient follows up with hiv cts specialist, nylon machine operator, coordinator of online programs, at [facility] and electrostatic paint operator Dr. Hamilton at [facility] Allergies/Medications Allergies: Coded Allergies: No Known Allergies (02/06/17) Home Med list Cholecalciferol (Vitamin D3) (Vitamin D) 2,000 UNIT TABLET 1 TAB PO DAILY VITAMIN SUPPORT (Reported) Ergocalciferol (Vitamin D2) (Vitamin D2) 50,000 UNIT CAPSULE 1 CAP PO QTHURS BONE STRENGTH (Reported) Ferrous Sulfate (IRON) 325 MG (65 MG IRON) TABLET 1 TAB PO DAILY SUPPLEMENT ( Reported) Folic Acid 1 MG TABLET 1 TAB PO DAILY VITAMIN SUPPORT (Reported) Insulin Glargine,Hum.rec.anlog (Lantus Solostar) 100 UNIT/ML (3 ML) INSULN.PEN 20 UNIT SC QPM DIABETES (Reported) Lactobacillus Acidophilus (Probiotic) 10 BILLION CELL CAPSULE 1 CAP PO DAILY GI (Reported) Lactulose 20 GM/30 ML SOLUTION 20 GM PO DAILY Decrease the amonia Milk Thistle Seed Extract (Milk Thistle) 175 MG CAPSULE 1 CAP PO DAILY SUPPLEMENT (Reported) Pantoprazole Sodium 40 MG TABLET.DR 1 TAB PO QAM GI (Reported) Phytonadione (Mephyton) 5 MG TABLET 1 TAB PO DAILY bleeding risk Propranolol HCl 10 MG TABLET 1 TAB PO BID BP (Reported) Rifaximin (Xifaxan) 550 MG TABLET 1 TAB PO BID GI (Reported) Simvastatin (Zocor*) 40 MG TABLET 1 TAB PO QPM CHOLESTEROL (Reported) Sitagliptin Phos/Metformin HCl (Janumet 50-1,000 MG Tablet) 1 EACH TABLET 1 TAB PO BID diabetes mellitus Trazodone HCl 50 MG TABLET 1 TAB PO QPM sleep (Reported) Compliance With Home Meds: GOOD Past History Travel History Traveled to [place] past 21 day No Medical History Neurological: dizziness, restless leg syndrome EENT: NONE Cardiovascular: hypertension, hyperlipidemia, MITRAL VALVE PROLAPSE Chest pain syndrome Respiratory: NONE Gastrointestinal: GERD, upper GI bleed, Colonic Polyp ASCITES Hepatic: cirrhosis, FATTY LIVER Renal: NONE Musculoskeletal: psoariatic arthritis, spinal stenosis Psychiatric: NONE Endocrine: diabetes Blood Disorders: NONE Cancer(s): NONE COMPUGRAPH OPERATOR/Reproductive: NONE History of MRSA: No History of VRE: No History of CDIFF: No Surgical History Surgical History: cervical fusion THORACIC FUSION ECHO Results (as available) Date of last Echo 02/08/17 EF% 60 Past Family/Social History Family History Relations & Conditions if any MOTHER (Breast cancer needed colectomy). FATHER (Skin CA of unknown type). . Relation not specified for: FH: diabetes mellitus Psychosocial History Who Do You Live With? spouse Services at Home: None Primary Language: Uzbek ETOH Use: denies use Illicit Drug Use: denies illicit drug use Functional Ability ADLs Independent: dressing, eating, toileting, bathing. Ambulation: independent IADLs Independent: shopping, housework, finances, food prep, telephone, transportation , medication admin. Review of Systems Review of Systems Constitutional: Denies: chills, fever. Cardiovascular: Denies: chest pain, palpitations. Respiratory: Denies: cough, short of breath. GI: Reports: bloating, distention. Musculoskeletal: Denies: back pain. Neurological/Psychological: Reports: confusion. All Other Systems: Reviewed and Negative Exam & Diagnostic Data Last 24 Hrs of Vital Signs/I&O Vital Signs Date Time Temp Pulse Resp B/P B/P Pulse O2 O2 Flow FiO2 Mean Ox Delivery Rate 05/25 1448 Room Air 05/25 1229 97.6 76 18 133/82 98 Room Air 05/25 1011 96.9 88 18 118/78 98 Room Air Room Air Intake & Output 05/25 1600 05/25 0800 05/25 0000 Intake Total Output Total Balance Patient 188 lb Weight Weight Reported by Patient Measurement Method Physical Exam General Appearance Alert, Cooperative, No Acute Distress Skin Temp/Moisture Exam: Warm/Dry HEENT Atraumatic Neck Supple Cardiovascular Regular Rate, Normal S1, Normal S2 Lungs Clear to Auscultation Abdomen Soft, Mildly distended Neurological Normal Speech, Normal Tone, Sensation Intact Extremities b/l lowe extremity edema Last 24 Hrs of Labs/Kvng: Laboratory Tests 05/25/17 1346: Lactic Acid 4.0 H 05/25/17 1130: Ammonia 96 H 05/25/17 1020: Lactic Acid 2.8 H 05/25/17 1020: Anion Gap 11, Estimated GFR > 60, BUN/Creatinine Ratio 18.6, Glucose 250 H, Calcium 9.0, Magnesium 1.7, Total Bilirubin 0.9, AST 48, ALT 36, Alkaline Phosphatase 152 H, Troponin I < 0.01, Total Protein 6.2 L, Albumin 2.9 L, Globulin 3.3, Albumin/Globulin Ratio 0.9 L, PT 15.2 H, INR 1.39 H, APTT 35, CBC w Diff NO MAN DIFF REQ, RBC 2.77 L, MCV 86.3, MCH 27.3, MCHC 31.7 L, RDW 16.2 H, MPV 8.0, Gran % 71.3, Lymphocytes % 14.6 L, Monocytes % 9.3, Eosinophils % 4.5, Basophils % 0.3, Absolute Granulocytes 3.7, Absolute Lymphocytes 0.8 L, Absolute Monocytes 0.5, Absolute Eosinophils 0.2, Absolute Basophils 0 Microbiology 05/25 1521 URINE ROUT: Urine Culture - ORD 05/25 1130 NASOPHARYN: Influenza Virus A & B Rapid Smear - COMP Diagnostic Data CXR Results No acute pulmonary disease. No evidence of pulmonary venous hypertension or pleural effusion. Other Results US-COMPLETE ABDOMEN 1. Hepatic cirrhosis and splenomegaly. No ascites or other new finding compared to 02/27/2017. 2. Cholelithiasis without evidence of acute cholecystitis. Assessment/Plan Assessment: 71-year-old male with past medical history significant for RM, history of GI bleed, history of ascites, type 2 diabetes mellitus, sciatica arthritis, gastroesophageal reflux disease, mitral valve prolapse, RLS, cervical fusion surgery and spinal stenosis, hepatic encephalopathy on lactulose, anemia, thrombocytopenia, hypertension came to emergency department with chief complaint of worsening fatigue for the last 1 week. History was also confirmed in the presence of . Vitals in emergency department, patient afebrile, no tachycardia, no tachypnea, systolic blood pressure 118-133 and diastolic pressure 78-82, oxygen saturation 98% on room air. On examination, patient was alert and oriented to time person and place not in any acute distress comfortably sitting in the chair. Pale sclera, S1 and S2 audible, overall clear lungs, no abdominal distention, no abdominal tenderness, audible bowel sounds, no fluid thrill present, no stigmata of chronic liver disease, no asterixis, trace bilateral lower extremity swelling Significant lab data included, no leukocytosis, no leukopenia, hemoglobin 7.6 and hematocrit 23.9, last hemoglobin range was 8-9, platelet count 97 baseline, no bandemia, no significant electrolyte abnormalities, glucose of 250, lactic acid 2.8 which increased to 4, alkaline phosphatase of 152, one of 96, negative troponin, albumin 2.9, total protein 6.2, INR 1.39, UA pending, and in urine culture and negative flu Patient was admitted on general medicine floor for the management of following problems #1 Generalized weakness #2 Acute on chronic anemia #3 Acute metabolic encephalopathy #4 History of RM #5 Lactic acidosis #6 Chronic thrmbocytopenia Patient's overall generalized weakness could be attributed to acute on chronic anemia. Patient's baseline hemoglobin was around 8 and 9 in the recent past and currently he presented with hemoglobin of 7.6. Patient denied any bright red blood per rectum or dark stools. We will order Hemoccult and trend CBC. Patient had his last endoscopy in 2016 which showed no evidence of varices but there was shallow gastroesophageal junction ulceration with portal hypertensive gastropathy and small duodenal telangiectasias. We will continue nonselective beta blockers and trend H&H. Gastroenterology already on board. No need for blood transfusion for now. Patient also has history of cirrhosis secondary to Rm with known portal hypertension and portal hypertensive gastropathy. Patient has history of ascites in the past but no evidence of abdominal distention or ascites on the ultrasound. Current ammonia level is 96, which could be contributing to acute toxic metabolic encephalopathy that patient has experienced waxing and waning symptoms in the past 1 week. Normal aminotransferase levels do not exclude nonocclusive fatty liver disease in this patient. Alkaline phosphatase is elevated. We don't have available serum ferritin levels and biopsy findings to comment on nonocclusive fatty liver disease activity score. Lactic acidosis is likely secondary to chronic liver disease and there is no need to harsha this as patient is hemodynamically stable Patient's blood sugars should be monitored closely and managed accordingly because patients with sonographic for liver disease are at increased risk of cardiovascular diseases and we should also check lipid profile. Patient has had his workup for thrombocytopenia with a nylon machine operator at the [facility], please obtain records from there. Patient is full code Patient is on diabetic diet Patient is on pain management Patient is on Alps for DVT prophylaxis because of thrombocytopenia As Ranked By This Provider Problem List: 1. Altered mental status, unspecified 2. Diabetes mellitus 3. RM (nonalcoholic steatohepatitis) 4. Weakness generalized Core Measures/Misc (11/25) Acute Coronary Syndrome ACS Diagnosis: No Congestive Heart Failure Congestive Heart Failure Diagnosis No Cerebrovascular Accident CVA/TIA Diagnosis: No VTE (View Protocol) VTE Risk Factors Acute Medical Illness No Mechanical VTE Prophylaxis d/t N/A MechProphylax Ordered No VTE Pharm Prophylaxis d/t Platelets below ref range Sepsis (View protocol) Sepsis Present: No Wisam Flowers MD 05/25/171: Attending MD Review Statement Attending Statement Attending MD Statement: examined this patient, discuss w/resident/PA/MACHINE ROUGH ROUNDER, agreed w/resident/PA/MACHINE ROUGH ROUNDER, discussed with nursing Attending Assessment/Plan: Mr. Rizvi is a 71-year-old male with RM, GI bleed, h/o ascites, Type II DM, RLS , GERD, h/o hepatic encephalopathy on lactulose, anemia of chronic disease ( Baseline around 8-9), thrombocytopenia, hypertension came with complaints of fatigue and weakness and not acting well as per . The patient has been having regular loose bowel movements with lactulose without constipation. On examination patient is minimally confused, but able to answer all questions. Hemodynamically stable. No fever, chills. Assessment and Plan 1. Altered mental status with hyperammonemia - GI consulted - continue with lactulose titrating to 3 loose bowel movements. No need to repeat ammonia levels - will monitor clinically 2. Cirrhosis with portal hypertension and gastropathy - last EGD in 2015 3. Acute on chronic anemia 4. Chronic thrombocytopenia with lactic acidosis (secondary to liver failure) 5. RM - Continue with Propranolol and Rifaximin 6. Restless legs syndrome - Initiate on Pramipexole Follow up on GI recommendations DVT prophylaxis - ALPS only
[2017-05-25] MEDS ORDERED: PANTOPRAZOLE SO40 M1 PO (17:11)
[2017-05-25] MEDS ORDERED: MEPHYTON5 M1 PO (17:27)
[2017-05-25 18:40] VITALS: BP 110/60
--- NOTE | 2017-05-25 21:35 | Cons- Gastroenterology ---
General Information and HPI Consulting Request Date of Consult: 05/25/17 Requested By: Wisam Flowers MD Reason for Consult: 1. Nonalcoholic steatohepatitis 2. Hepatic encephalopathy 3. Dehydration Source of Information: patient, family Exam Limitations: patient unable to give complete history given encephalopathy History of Present Illness: Mr. Houston is a 71-year-old male with past medical history of nonalcoholic fatty liver disease who is followed at [facility]. Patient presents with progressive confusion since Saturday. According to the patient's he has been taking Lasix and spironalactone for ascites as well as lower extremity edema. That was discontinued on Saturday since the swelling was improving. He has had impairment of his short-term memory. Patient denied any recent fall or head trauma. Patient had waxing and waning symptoms of confusion and lethargy for the last 1 week. Mr. Smith's historyis also significant for GI bleed, cirrhosis complicated by ascites and hepatic encephalopathy for which he takes lactulose. He also has chronic anemia and thrombocytopenia related to his liver disease. Other medical problems include type 2 diabetes mellitus, sciatica, arthritis, gastroesophageal reflux disease, mitral valve prolapse, RLS, cervical fusion surgery and spinal stenosis, hypertension. Allergies/Medications Allergies: Coded Allergies: No Known Allergies (02/06/17) Home Med List: Cholecalciferol (Vitamin D3) (Vitamin D) 2,000 UNIT TABLET 1 TAB PO DAILY VITAMIN SUPPORT (Reported) Ergocalciferol (Vitamin D2) (Vitamin D2) 50,000 UNIT CAPSULE 1 CAP PO QTHURS BONE STRENGTH (Reported) Ferrous Sulfate (IRON) 325 MG (65 MG IRON) TABLET 1 TAB PO DAILY SUPPLEMENT ( Reported) Folic Acid 1 MG TABLET 1 TAB PO DAILY VITAMIN SUPPORT (Reported) Insulin Glargine,Hum.rec.anlog (Lantus Solostar) 100 UNIT/ML (3 ML) INSULN.PEN 20 UNIT SC QPM DIABETES (Reported) Lactobacillus Acidophilus (Probiotic) 10 BILLION CELL CAPSULE 1 CAP PO DAILY GI (Reported) Lactulose 20 GM/30 ML SOLUTION 20 GM PO DAILY Decrease the amonia Milk Thistle Seed Extract (Milk Thistle) 175 MG CAPSULE 1 CAP PO DAILY SUPPLEMENT (Reported) Pantoprazole Sodium 40 MG TABLET.DR 1 TAB PO QAM GI (Reported) Phytonadione (Mephyton) 5 MG TABLET 1 TAB PO DAILY bleeding risk Propranolol HCl 10 MG TABLET 1 TAB PO BID BP (Reported) Rifaximin (Xifaxan) 550 MG TABLET 1 TAB PO BID GI (Reported) Simvastatin (Zocor*) 40 MG TABLET 1 TAB PO QPM CHOLESTEROL (Reported) Sitagliptin Phos/Metformin HCl (Janumet 50-1,000 MG Tablet) 1 EACH TABLET 1 TAB PO BID diabetes mellitus Trazodone HCl 50 MG TABLET 1 TAB PO QPM sleep (Reported) Current Medications: Current Medications Sig/Krista Start time Last Medication Dose Route Stop Time Status Admin Atorvastatin Calcium 40 MG 1700 05/26 1700 AC PO Cholecalciferol 2,000 IU DAILY 05/25 1723 AC 05/25 PO 1939 Folic Acid 1 MG DAILY 05/25 1723 AC 05/25 PO 193 Insulin Aspart 0 TIDAC 05/26 0800 AC SC Insulin Detemir 20 UNITS QPM 05/25 2200 AC 05/25 SC 2120 Lactobacillus 1 CAP DAILY 05/25 1724 AC 05/25 Acidophilus PO 1939 Lactulose 20 GM BID 05/25 2200 AC PO Pantoprazole Sodium 40 MG DAILY 05/25 1724 AC 05/25 IV 1939 Phytonadione 5 MG DAILY 05/25 1727 AC 05/25 PO 1947 Pramipexole 0.125 MG 05/25 AC 05/25 Dihydrochloride PO 1947 Propranolol HCl 10 MG BID 05/25 2200 AC 05/25 PO 2120 Rifaximin 550 MG BID 05/25 2200 AC 05/25 PO 2119 Sodium Chloride 1,000 ML ONCE ONE 05/25 1515 AC 05/25 IV 05/25 2154 1828 Trazodone HCl 50 MG QPM 05/25 2200 AC 05/25 PO 211 Past History Travel History Traveled to [place] past 21 day No Medical History Blood Transfusion Hx: Yes Neurological: dizziness, restless leg syndrome EENT: NONE Cardiovascular: hypertension, hyperlipidemia, MITRAL VALVE PROLAPSE Chest pain syndrome Respiratory: NONE Gastrointestinal: GERD, upper GI bleed, Colonic Polyp ASCITES Hepatic: cirrhosis, FATTY LIVER Renal: NONE Musculoskeletal: psoariatic arthritis, spinal stenosis Psychiatric: NONE Endocrine: diabetes Blood Disorders: NONE Cancer(s): NONE INDEPENDENT INSURANCE ADJUSTER/Reproductive: NONE Surgical History Surgical History: cervical fusion THORACIC FUSION Family History Relations & Conditions If Any: MOTHER (Breast cancer needed colectomy). FATHER (Skin CA of unknown type). . Relation not specified for: FH: diabetes mellitus Psychosocial History Where Do You Live? Home Who Do You Live With? spouse Services at Home: None Primary Language: Turkmen Smoking Status: Never Smoked ETOH Use: denies use Illicit Drug Use: denies illicit drug use Functional Ability ADLs Independent: dressing, eating, toileting, bathing. Ambulation: independent IADLs Independent: shopping, housework, finances, food prep, telephone, transportation , medication admin. ECHO Results (as available) Date of last Echo 02/08/17 EF% 60 Review of Systems Review of Systems Constitutional: Reports: weakness. EENTM: Denies: no symptoms. Cardiovascular: Reports: no symptoms. Respiratory: Reports: no symptoms. GI: Reports: see HPI. Genitourinary: Reports: no symptoms. Musculoskeletal: Reports: no symptoms. Skin: Reports: no symptoms. Neurological/Psychological: Reports: cognitive dysfunction. Hematologic/Endocrine: Reports: no symptoms. Exam & Diagnostic Data Vital Signs and I&O Vital Signs Date Time Temp Pulse Resp B/P B/P Pulse O2 O2 Flow FiO2 Mean Ox Delivery Rate 05/25 1840 98.8 68 20 110/60 97 Room Air 05/25 1727 98.6 68 18 119/80 99 Room Air 05/25 1515 97.9 81 18 125/72 97 Room Air 05/25 1448 Room Air 05/25 1229 97.6 76 18 133/82 98 Room Air 05/25 1011 96.9 88 18 118/78 98 Room Air Room Air Intake & Output 05/25 1600 05/25 0400 05/24 1600 05/24 0400 05/23 1600 05/23 0400 Intake Total Output Total Balance Patient 188 lb Weight Weight Reported by Patient Measurement Method Physical Exam General Appearance: no apparent distress, alert, awake Head: atraumatic, normal appearance Eyes: Bilateral: normal appearance. Ears, Nose, Throat: hearing grossly normal Neck: normal inspection, supple, full range of motion Respiratory: normal breath sounds, lungs clear Cardiovascular: regular rate/rhythm, normal S1 and S2 without rub murmur or gallop Gastrointestinal: normal bowel sounds, soft, non-tender, no organomegaly Neurologic/Psych: no motor/sensory deficits, awake, alert, oriented x 3 Cranial Nerves: normal hearing, normal speech Skin: intact, normal color, warm/dry Results Pertinent Lab Results: Laboratory Tests 05/25 05/25 05/25 05/25 1346 1130 1020 1020 Chemistry Sodium (137 - 145 mmol/L) 141 Potassium (3.5 - 5.1 mmol/L) 3.8 Chloride (98 - 107 mmol/L) 106 Carbon Dioxide (22 - 30 mmol/L) 24 Anion Gap (5 - 16) 11 BUN (9 - 20 mg/dL) 13 Creatinine (0.7 - 1.2 mg/dL) 0.7 Estimated GFR (>60 ml/min) > 60 BUN/Creatinine Ratio (7 - 25 %) 18.6 Glucose (65 - 99 mg/dL) 250 H Lactic Acid (0.7 - 2.1 mmol/L) 4.0 H 2.8 H Calcium (8.4 - 10.2 mg/dL) 9.0 Magnesium (1.6 - 2.3 mg/dL) 1.7 Total Bilirubin (0.2 - 1.3 mg/dL) 0.9 AST (17 - 59 U/L) 48 ALT (21 - 72 U/L) 36 Alkaline Phosphatase (< 127 U/L) 152 H Ammonia (9 - 30 umol/L) 96 H Troponin I (<0.11 ng/ml) < 0.01 Total Protein (6.3 - 8.2 g/dL) 6.2 L Albumin (3.5 - 5.0 g/dL) 2.9 L Globulin (1.9 - 4.2 gm/dL) 3.3 Albumin/Globulin Ratio (1.1 - 2.2 %) 0.9 L Coagulation PT (9.4 - 12.5 SEC) 15.2 H INR (0.90 - 1.17) 1.39 H APTT (25 - 37 SEC) 35 Hematology CBC w Diff NO MAN DIFF REQ WBC (4.8 - 10.8 /CUMM) 5.2 RBC (4.70 - 6.10 /CUMM) 2.77 L Hgb (14.0 - 18.0 G/DL) 7.6 L Hct (42 - 52 %) 23.9 L MCV (80.0 - 94.0 FL) 86.3 MCH (27.0 - 31.0 PG) 27.3 MCHC (33.0 - 37.0 G/DL) 31.7 L RDW (11.5 - 14.5 %) 16.2 H Plt Count (130 - 400 /CUMM) 97 L MPV (7.4 - 10.4 FL) 8.0 Gran % (42.2 - 75.2 %) 71.3 Lymphocytes % (20.5 - 51.1 %) 14.6 L Monocytes % (1.7 - 9.3 %) 9.3 Eosinophils % (0 - 5 %) 4.5 Basophils % (0.0 - 2.0 %) 0.3 Absolute Granulocytes (1.4 - 6.5 /CUMM) 3.7 Absolute Lymphocytes (1.2 - 3.4 /CUMM) 0.8 L Absolute Monocytes (0.10 - 0.60 /CUMM) 0.5 Absolute Eosinophils (0.0 - 0.7 /CUMM) 0.2 Absolute Basophils (0.0 - 0.2 /CUMM) 0 Imaging/Other Studies: ULTRASOUND ABDOMEN -- IMPRESSION: 1. Hepatic cirrhosis and splenomegaly. No ascites or other new finding compared to 02/27/2017. 2. Cholelithiasis without evidence of acute cholecystitis. Assessment/Plan Assessment/Recommendations: ASSESSMENT: 1. NAFLD 2. Ascites by history -- recently treated with increased doses of spironolactone and lasix 3. Hepatic Encephalopathy -- likely due to dehydration 4. Cirrhosis due to #1 5. Chronic Anemia -- no signs of GI blood loss 6. Thrombocytopenia and Coagulopathy due to #4 RECOMMENDATIONS: 1. Obtain records from [facility] 2. Titrate lactulose to achieve loose bowel movement 3 times daily 3. Continue Rifaximin 4. Follow labs 5. Would search for triggers for encephalopathy such as underlying infection. Would panculture, check a UA, although dehydration is often enough to result in exacerbation of hepatic encephalopathy. Would monitor for signs of GI blood loss. Would, if possible, try to find out what patient's baseline H/H runs. Consult Acknowledgment - Thank you for your consult request.
[2017-05-25 22:15] VITALS: BP 123/60
[2017-05-26 06:32] VITALS: BP 112/64
--- NOTE | 2017-05-26 07:25 | PN- Housestaff ---
Herminia PRADO,Fouzia 05/26/17 0724: Subjective Follow-up For: Generalized weakness, thrombocytopenia, chronic anemia Complaints: no complaints Subjective: Patient was seen and examined at bedside. No overnight events. He offers no complaints. He is not in any acute distress. He denied taking lactulose which elevated explained him the importance of having at least 2-3 bowel movements. Later he agreed to continue lactulose. He was eager to know when he is getting discharge. He denies chest pain, chest pressure, abdominal pain, diarrhea, bloody bowel movement. Review of Systems Constitutional: Reports: no symptoms. Cardiovascular: Reports: no symptoms. Respiratory: Reports: no symptoms. Gastrointestinal: Reports: no symptoms. Genitourinary: Reports: no symptoms, dysuria. Objective Last 24 Hrs of Vital Signs/I&O Vital Signs Date Time Temp Pulse Resp B/P B/P Pulse O2 O2 Flow FiO2 Mean Ox Delivery Rate 05/26 0736 97.6 64 20 112/64 05/26 0632 97.6 64 20 112/64 95 Room Air 05/25 2215 98.5 66 20 123/60 95 05/25 2120 63 120/60 05/25 1840 98.8 68 20 110/60 97 Room Air 05/25 1727 98.6 68 18 119/80 99 Room Air 05/25 1515 97.9 81 18 125/72 97 Room Air 05/25 1448 Room Air 05/25 1229 97.6 76 18 133/82 98 Room Air Intake & Output 05/26 1600 05/26 0800 05/26 0000 Intake Total 130 1240 Output Total 300 475 200 Balance -300 -345 1040 Intake, IV 10 1000 Intake, Oral 120 240 Output, Urine 300 475 200 Patient 180 lb 188 lb Weight Weight Reported by Patient Measurement Method Physical Exam General Appearance: Alert, Oriented X3, Cooperative, No Acute Distress Cardiovascular: Regular Rate, Normal S1, Normal S2, No Murmurs Lungs: Clear to Auscultation Abdomen: Normal Bowel Sounds, Soft, No Tenderness, No Hepatospenomegaly Neurological: Strength at 5/5 X4 Ext, Normal Tone, Sensation Intact, Cranial Nerves 3-12 NL Current Medications: Current Medications Sig/Krista Start time Last Medication Dose Route Stop Time Status Admin Atorvastatin Calcium 40 MG 1700 05/26 1700 AC PO Cholecalciferol 2,000 IU DAILY 05/25 1723 AC 05/26 PO 0737 Folic Acid 1 MG DAILY 05/25 172 AC 05/26 PO 0736 Insulin Aspart 0 TIDAC 05/26 0800 AC SC Insulin Detemir 20 UNITS QPM 05/25 220 AC 05/25 SC 2120 Lactobacillus 1 CAP DAILY 05/25 172 AC 05/26 Acidophilus PO 0737 Lactulose 20 GM BID 05/25 220 AC PO Pantoprazole Sodium 40 MG DAILY 05/25 172 AC 05/26 IV 0737 Phytonadione 5 MG DAILY 05/25 172 AC 05/26 PO 0736 Pramipexole 0.125 MG 05/25 AC 05/25 Dihydrochloride PO 1947 Propranolol HCl 10 MG BID 05/25 2199 AC 05/26 PO 0736 Rifaximin 550 MG BID 05/25 2199 05/26 PO 0737 Sodium Chloride 1,000 ML ONCE ONE 05/25 1515 DC 05/25 IV 05/25 2154 1828 Trazodone HCl 50 MG QPM 05/25 2199 AC 05/25 PO 2119 Last 24 Hrs of Lab/Kvng Results Last 24 Hrs of Labs/Mics: Laboratory Tests 05/26/17 0825: Anion Gap 7, Estimated GFR > 60, BUN/Creatinine Ratio 15.7, Hemoglobin A1c Pending, Iron 20 L, TIBC 362, Ferritin 12.8 L, Triglycerides 120, Cholesterol 120, LDL Cholesterol, Calc 63 L, HDL Cholesterol 33 L, Cholesterol/HDL Ratio 4 , CBC w Diff NO MAN DIFF REQ, RBC 2.58 L, MCV 86.6, MCH 27.5, MCHC 31.8 L, RDW 16.6 H, MPV 8.1, Gran % 65.6, Lymphocytes % 17.4 L, Monocytes % 10.8 H, Eosinophils % 4.9, Basophils % 1.3, Absolute Granulocytes 3.1, Absolute Lymphocytes 0.8 L, Absolute Monocytes 0.5, Absolute Eosinophils 0.2, Absolute Basophils 0.1 05/26/17 0350: Urine Color YEL, Urine Clarity CLEAR, Urine pH 6.0, Ur Specific [place] <= 1.005 , Urine Protein NEG, Urine Ketones NEG, Urine Nitrite NEG, Urine Bilirubin NEG, Urine Urobilinogen 0.2, Ur Leukocyte Esterase NEG, Ur Microscopic EXAM NOT REQUIRED, Urine Hemoglobin NEG, Urine Glucose NEG 05/25/17 1346: Lactic Acid 4.0 H 05/25/17 1130: Ammonia 96 H Microbiology 05/26 0350 URINE ROUT: Urine Culture - RECD 05/25 1130 NASOPHARYN: Influenza Virus A & B Rapid Smear - COMP Assessment/Plan Assessment: 71-year-old male with past medical history significant for RM, history of GI bleed, history of ascites, type 2 diabetes mellitus, sciatica arthritis, gastroesophageal reflux disease, mitral valve prolapse, RLS, cervical fusion surgery and spinal stenosis, hepatic encephalopathy on lactulose, anemia, thrombocytopenia, hypertension came to emergency department with chief complaint of worsening fatigue for the last 1 week. Problem list 1. Altered mental status with hyperammonemia 2. Cirrhosis with portal hypertension/gastropathy 3. Acute on chronic anemia 4. Thrombocytopenia 5. History of Rm 6. Restless leg syndrome * Patient mentation is improved today. No periods of confusion/agitation. He is conscious and oriented 3. No Other sources of infection [UA negative, lungs clear, skin-no open wound] * Patient had 4 loose bowel movements yesterday with no blood. We will continue lactulose and titrate to have 3 bowel movements every day. Patient hemoglobin decreased from 7.6-7.1. We will guaiac all his stools and repeat CBC at 4 PM today. Attending made aware. * Chronic thrombocytopenia-platelet 98 today. We will monitor daily CBC. * History of Rm-continue rifaximin and propranolol. * Restless leg syndrome-no complaints of pain in his legs. We will continue pramipexole. * Appreciate GI follow-up * Diet-diabetic diet * DVT prophylaxis-Alps * Code-full code Problem List: 1. Diabetes 2. RM (nonalcoholic steatohepatitis) 3. Thrombocytopenia 4. Hepatic encephalopathy Pain Ratin Pain Location: none Pain Goal: Remain pain free Pain Plan: tylenol Tomorrow's Labs & Rationales: cbc Wisam Flowers MD 05/26/17 1239: Attending MD Review Statement Attending Statement Attending MD Statement: examined this patient, discuss w/resident/PA/INGREDIENT SPECIALIST, agreed w/resident/PA/INGREDIENT SPECIALIST, discussed with nursing Attending Assessment/Plan: Mr. Smith is a 71-year-old male with RM, GI bleed, h/o ascites, Type II DM, RLS , GERD, h/o hepatic encephalopathy on lactulose, anemia of chronic disease ( Baseline around 8-9), thrombocytopenia, hypertension came with complaints of fatigue and weakness and not acting well as per . The patient has been having regular loose bowel movements with lactulose without constipation. On examination today patient is feeling fine and alert and oriented 3 once to go home. Hemodynamically stable. No fever, chills. Assessment and Plan 1. Altered mental status with hyperammonemia - GI consulted - continue with lactulose titrating to 3 loose bowel movements. Clinically getting better - no obvious source of infection identified 2. Cirrhosis with portal hypertension and gastropathy - last EGD in 2015 3. Worsening Acute on chronic anemia - stool guiac - repeat Hb in the evening 4. Chronic thrombocytopenia with lactic acidosis (secondary to liver failure) 5. RM - Continue with Propranolol and Rifaximin 6. Restless legs syndrome - Initiated on Pramipexole Obtain [facility] records Follow up on GI recommendations
[2017-05-26 09:51] LABS: ABSOLUTE BASOPHIL COUNT 0.1 /CUMM (0.0-0.2); ABSOLUTE EOSINOPHIL COUNT 0.2 /CUMM (0.0-0.7); ABSOLUTE GRANULOCYTE CT 3.1 /CUMM (1.4-6.5); ABSOLUTE LYMPH COUNT 0.8 /CUMM (1.2-3.4); ABSOLUTE MONOCYTE COUNT 0.5 /CUMM (0.10-0.60); BASOPHIL % 1.3 % (0.0-2.0); EOSINOPHIL % 4.9 % (0-5); GRANULOCYTE % 65.6 % (42.2-75.2); HEMATOCRIT 22.3 % (42-52); MEAN CORPUSCULAR HGB 27.5 PG (27.0-31.0); MEAN CORPUSCULAR HGB CONC 31.8 G/DL (33.0-37.0); MEAN CORPUSCULAR VOLUME 86.6 FL (80.0-94.0); MEAN PLATELET VOLUME 8.1 FL (7.4-10.4); RBC DISTRIBUTION WIDTH 16.6 % (11.5-14.5); RED BLOOD CELL CT 2.58 /CUMM (4.70-6.10); WHITE BLOOD CELL COUNT 4.8 /CUMM (4.8-10.8)
[2017-05-26 09:53] LABS: PLATELET COUNT 98 /CUMM (130-400)
[2017-05-26 14:10] VITALS: BP 100/62
[2017-05-26 17:35] LABS: ABSOLUTE BASOPHIL COUNT 0 /CUMM (0.0-0.2); ABSOLUTE EOSINOPHIL COUNT 0.3 /CUMM (0.0-0.7); ABSOLUTE GRANULOCYTE CT 4.1 /CUMM (1.4-6.5); ABSOLUTE LYMPH COUNT 0.9 /CUMM (1.2-3.4); ABSOLUTE MONOCYTE COUNT 0.6 /CUMM (0.10-0.60); BASOPHIL % 0.8 % (0.0-2.0); EOSINOPHIL % 4.8 % (0-5); GRANULOCYTE % 68.9 % (42.2-75.2); HEMATOCRIT 24.7 % (42-52); MEAN CORPUSCULAR HGB 27.2 PG (27.0-31.0); MEAN CORPUSCULAR HGB CONC 31.3 G/DL (33.0-37.0); PLATELET COUNT 119 /CUMM (130-400); RBC DISTRIBUTION WIDTH 16.5 % (11.5-14.5); RED BLOOD CELL CT 2.83 /CUMM (4.70-6.10)
--- NOTE | 2017-05-26 17:41 | PN- Gastroenterology ---
Assessment/Plan GI Assessment/Recommendations: ASSESSMENT: 1. 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 Hepatic Encephalopathy -- now resolved RECOMMENDATIONS: 1. If patient continues to do well can be discharged in a.m. 2. Patient reports that his has Gómez made a follow-up appointment with his primary inspector bicycle/forming department supervisor. He will follow-up with him as an outpatient. Subjective Subjective: Patient feels that he is back to baseline. Has had 4 bowel movements that were not bloody and were not melenic/black. He has had no nausea, vomiting or abdominal pain. Objective Vital Signs and I&Os Vital Signs Date Time Temp Pulse Resp B/P B/P Pulse O2 O2 Flow FiO2 Mean Ox Delivery Rate 05/26 1410 98.4 67 20 100/62 96 Room Air 05/26 0736 97.6 64 20 112/64 05/26 0632 97.6 64 20 112/64 95 Room Air 05/25 2215 98.5 66 20 123/60 95 05/25 2120 63 120/60 05/25 1840 98.8 68 20 110/60 97 Room Air Intake & Output 05/26 1600 05/26 0400 05/25 1600 05/25 0400 05/24 1600 05/24 0400 Intake Total 930 1240 Output Total 975 400 Balance -45 840 Intake, IV 10 1000 Intake, Oral 920 240 Output, Urine 975 400 Patient 180 lb 188 lb 188 lb Weight Weight Reported by Patient Reported by Patient Measurement Method Physical Exam General Appearance: well developed/nourished, no apparent distress, alert, awake Respiratory: normal breath sounds, lungs clear Cardiovascular: regular rate/rhythm, Normal S1 and S2 without rub, murmur or gallop Abdomen: normal bowel sounds, soft, non-tender, no organomegaly Extremities: normal inspection, no edema Neurologic/Psychiatric: awake, alert, oriented x 3, No Asterixis Skin: intact, normal color, warm/dry Current Medications: Current Medications Sig/Krista Start time Last Medication Dose Route Stop Time Status Admin Atorvastatin Calcium 40 MG 1700 05/26 1700 AC 05/26 PO 1633 Cholecalciferol 2,000 IU DAILY 05/25 1723 AC 05/26 PO 0737 Folic Acid 1 MG DAILY 05/25 1723 AC 05/26 PO 0736 Insulin Aspart 0 TIDAC 05/26 0800 AC 05/26 SC 1632 Insulin Detemir 20 UNITS QPM 05/25 2199 AC 05/25 SC 2120 Lactobacillus 1 CAP DAILY 05/26 1723 AC 05/26 Acidophilus PO 0737 Lactulose 20 GM BID 05/25 2199 AC PO Mirtazapine 15 MG AT BEDTIME 05/26 2199 AC PO Pantoprazole Sodium 40 MG DAILY 05/26 1723 AC 05/26 IV 0737 Phytonadione 5 MG DAILY 05/25 1726 AC 05/26 PO 0736 Pramipexole 0.125 MG 05/25 AC 05/25 Dihydrochloride PO 194 Propranolol HCl 10 MG BID 05/25 2199 AC 05/26 PO 0736 Rifaximin 550 MG BID 05/25 2199 AC 05/26 PO 0737 Sodium Chloride 1,000 ML ONCE ONE 05/25 1515 DC 05/25 IV 05/25 2153 182 Trazodone HCl 50 MG QPM 05/25 2199 DC 05/25 PO 2119 Results Pertinent Lab Results: Laboratory Tests 05/26 05/26 1640 1400 Hematology CBC w Diff NO MAN DIFF REQ Cancelled WBC (4.8 - 10.8 /CUMM) 6.0 Cancelled RBC (4.70 - 6.10 /CUMM) 2.83 L Cancelled Hgb (14.0 - 18.0 G/DL) 7.7 L Cancelled Hct (42 - 52 %) 24.7 L Cancelled MCV (80.0 - 94.0 FL) 87.0 Cancelled MCH (27.0 - 31.0 PG) 27.2 Cancelled MCHC (33.0 - 37.0 G/DL) 31.3 L Cancelled RDW (11.5 - 14.5 %) 16.5 H Cancelled Plt Count (130 - 400 /CUMM) 119 L Cancelled MPV (7.4 - 10.4 FL) 8.0 Cancelled Gran % (42.2 - 75.2 %) 68.9 Lymphocytes % (20.5 - 51.1 %) 15.3 L Monocytes % (1.7 - 9.3 %) 10.2 H Eosinophils % (0 - 5 %) 4.8 Basophils % (0.0 - 2.0 %) 0.8 Absolute Granulocytes (1.4 - 6.5 /CUMM) 4.1 Absolute Lymphocytes (1.2 - 3.4 /CUMM) 0.9 L Absolute Monocytes (0.10 - 0.60 /CUMM) 0.6 Absolute Eosinophils (0.0 - 0.7 /CUMM) 0.3 Absolute Basophils (0.0 - 0.2 /CUMM) 0 05/26 05/26 0592 0350 Chemistry Sodium (137 - 145 mmol/L) 139 Potassium (3.5 - 5.1 mmol/L) 3.7 Chloride (98 - 107 mmol/L) 108 H Carbon Dioxide (22 - 30 mmol/L) 24 Anion Gap (5 - 16) 7 BUN (9 - 20 mg/dL) 11 Creatinine (0.7 - 1.2 mg/dL) 0.7 Estimated GFR (>60 ml/min) > 60 BUN/Creatinine Ratio (7 - 25 %) 15.7 Hemoglobin A1c (4.2 - 5.8 %) Pending Iron (49 - 181 ug/dL) 20 L TIBC (261 - 462 ug/dL) 362 Ferritin (17.9 - 464 ng/mL) 12.8 L Triglycerides (<150 mg/dL) 120 Cholesterol (< 200 MG/DL) 120 LDL Cholesterol, Calc (65 - 129 mg/dL) 63 L HDL Cholesterol (40 - 60 mg/dL) 33 L Cholesterol/HDL Ratio (0.00 - 4.88 %) 4 Hematology CBC w Diff NO MAN DIFF REQ WBC (4.8 - 10.8 /CUMM) 4.8 RBC (4.70 - 6.10 /CUMM) 2.58 L Hgb (14.0 - 18.0 G/DL) 7.1 *L Hct (42 - 52 %) 22.3 L MCV (80.0 - 94.0 FL) 86.6 MCH (27.0 - 31.0 PG) 27.5 MCHC (33.0 - 37.0 G/DL) 31.8 L RDW (11.5 - 14.5 %) 16.6 H Plt Count (130 - 400 /CUMM) 98 L MPV (7.4 - 10.4 FL) 8.1 Gran % (42.2 - 75.2 %) 65.6 Lymphocytes % (20.5 - 51.1 %) 17.4 L Monocytes % (1.7 - 9.3 %) 10.8 H Eosinophils % (0 - 5 %) 4.9 Basophils % (0.0 - 2.0 %) 1.3 Absolute Granulocytes (1.4 - 6.5 /CUMM) 3.1 Absolute Lymphocytes (1.2 - 3.4 /CUMM) 0.8 L Absolute Monocytes (0.10 - 0.60 /CUMM) 0.5 Absolute Eosinophils (0.0 - 0.7 /CUMM) 0.2 Absolute Basophils (0.0 - 0.2 /CUMM) 0.1 Urines Urine Color (YEL,AMB,STR) YEL Urine Clarity (CLEAR) CLEAR Urine pH (5.0 - 8.0) 6.0 Ur Specific [place] (1.001 - 1.035) <= 1.005 Urine Protein (NEG,<30 MG/DL) NEG Urine Ketones (NEG) NEG Urine Nitrite (NEG) NEG Urine Bilirubin (NEG) NEG Urine Urobilinogen (0.1 - 1.0 EU/dl) 0.2 Ur Leukocyte Esterase (NEG) NEG Ur Microscopic EXAM NOT REQUIRED Urine Hemoglobin (NEG) NEG Urine Glucose (N MG/DL) NEG 05/25 05/25 05/25 05/25 1346 1130 1020 1020 Chemistry Sodium (137 - 145 mmol/L) 141 Potassium (3.5 - 5.1 mmol/L) 3.8 Chloride (98 - 107 mmol/L) 106 Carbon Dioxide (22 - 30 mmol/L) 24 Anion Gap (5 - 16) 11 BUN (9 - 20 mg/dL) 13 Creatinine (0.7 - 1.2 mg/dL) 0.7 Estimated GFR (>60 ml/min) > 60 BUN/Creatinine Ratio (7 - 25 %) 18.6 Glucose (65 - 99 mg/dL) 250 H Lactic Acid (0.7 - 2.1 mmol/L) 4.0 H 2.8 H Calcium (8.4 - 10.2 mg/dL) 9.0 Magnesium (1.6 - 2.3 mg/dL) 1.7 Total Bilirubin (0.2 - 1.3 mg/dL) 0.9 AST (17 - 59 U/L) 48 ALT (21 - 72 U/L) 36 Alkaline Phosphatase (< 127 U/L) 152 H Ammonia (9 - 30 umol/L) 96 H Troponin I (<0.11 ng/ml) < 0.01 Total Protein (6.3 - 8.2 g/dL) 6.2 L Albumin (3.5 - 5.0 g/dL) 2.9 L Globulin (1.9 - 4.2 gm/dL) 3.3 Albumin/Globulin Ratio (1.1 - 2.2 %) 0.9 L Coagulation PT (9.4 - 12.5 SEC) 15.2 H INR (0.90 - 1.17) 1.39 H APTT (25 - 37 SEC) 35 Hematology CBC w Diff NO MAN DIFF REQ WBC (4.8 - 10.8 /CUMM) 5.2 RBC (4.70 - 6.10 /CUMM) 2.77 L Hgb (14.0 - 18.0 G/DL) 7.6 L Hct (42 - 52 %) 23.9 L MCV (80.0 - 94.0 FL) 86.3 MCH (27.0 - 31.0 PG) 27.3 MCHC (33.0 - 37.0 G/DL) 31.7 L RDW (11.5 - 14.5 %) 16.2 H Plt Count (130 - 400 /CUMM) 97 L MPV (7.4 - 10.4 FL) 8.0 Gran % (42.2 - 75.2 %) 71.3 Lymphocytes % (20.5 - 51.1 %) 14.6 L Monocytes % (1.7 - 9.3 %) 9.3 Eosinophils % (0 - 5 %) 4.5 Basophils % (0.0 - 2.0 %) 0.3 Absolute Granulocytes (1.4 - 6.5 /CUMM) 3.7 Absolute Lymphocytes (1.2 - 3.4 /CUMM) 0.8 L Absolute Monocytes (0.10 - 0.60 /CUMM) 0.5 Absolute Eosinophils (0.0 - 0.7 /CUMM) 0.2 Absolute Basophils (0.0 - 0.2 /CUMM) 0
[2017-05-27 06:34] VITALS: BP 100/54
--- NOTE | 2017-05-27 07:26 | PN- Housestaff ---
Herminia PRADO,Fouzia 05/27/17 0726: Subjective Follow-up For: Hepatic encephalopathy resolved Complaints: no complaints Subjective: Patient seen and examined at bedside. No overnight events. No complains. Patient is eager to go home. He denies headache, nausea, vomiting, abdominal pain, diarrhea. Patient had 5 bowel movements with no blood since admission. Review of Systems Constitutional: Reports: see HPI. Objective Last 24 Hrs of Vital Signs/I&O Vital Signs Date Time Temp Pulse Resp B/P B/P Pulse O2 O2 Flow FiO2 Mean Ox Delivery Rate 05/27 1435 97.9 63 18 100/58 98 05/27 0925 100/50 05/27 0634 98.5 70 18 100/54 98 Room Air 05/26 2222 98.4 20 96 05/26 2028 66 130/70 Intake & Output 05/27 1600 05/27 0800 05/27 0000 Intake Total 1200 0 600 Output Total 400 Balance 1200 -400 600 Intake, IV 0 Intake, Oral 1200 0 600 Number 1 0 Bowel Movements Output, Urine 400 Physical Exam General Appearance: Alert, Oriented X3, Cooperative, No Acute Distress Cardiovascular: Normal S1, Normal S2, No Murmurs Lungs: Clear to Auscultation, Normal Air Movement Abdomen: Soft, No Tenderness, No Hepatospenomegaly Neurological: Normal Gait, Normal Speech, Strength at 5/5 X4 Ext Extremities: No Cyanosis, No Edema, Normal Pulses Assessment/Plan Assessment: 71-year-old male with past medical history significant for [place], history of GI bleed, history of ascites, type 2 diabetes mellitus, sciatica arthritis, gastroesophageal reflux disease, mitral valve prolapse, RLS, cervical fusion surgery and spinal stenosis, hepatic encephalopathy on lactulose, anemia, thrombocytopenia, hypertension came to emergency department with chief complaint of worsening fatigue for the last 1 week. Problem list 1. Altered mental status with hyperammonemia-resolved 2. Cirrhosis with portal hypertension/gastropathy 3. Acute on chronic anemia 4. Thrombocytopenia 5. History of [place] 6. Restless leg syndrome * Patient mentation is improved. No periods of confusion/agitation. He is conscious and oriented 3. No Other sources of infection [UA negative, lungs clear, skin-no open wound] * Patient had 4 loose bowel movements yesterday with no blood. We will continue lactulose and titrate to have 3 bowel movements every day. Patient hemoglobin decreased from 7.6-7.1 again today and upon further discussion with the his baseline H&H appears to be around 6. Attending made aware hold decided to discharge him home with follow-up with his news camera operator for further EGD scope * Chronic thrombocytopenia-platelet 87 today. We will monitor daily CBC. * History of [place]-continue rifaximin and propranolol. * Restless leg syndrome-no complaints of pain in his legs. We will continue pramipexole. * Appreciate GI follow-up * Diet-diabetic diet * DVT prophylaxis-Alps * Code-full code Problem List: 1. Hepatic encephalopathy Pain Ratin Pain Location: None Pain Goal: Remain pain free Pain Plan: Tylenol Tomorrow's Labs & Rationales: None Gabo Holden 05/27/17 1205: Attending MD Review Statement Attending Statement Attending MD Statement: examined this patient, discuss w/resident/PA/OFFICE NURSE, agreed w/resident/PA/OFFICE NURSE, discussed with family, reviewed EMR data (avail), discussed with nursing, discussed with case mgmt, reviewed images, amended to note Attending Assessment/Plan: 71-year-old male with [place], GI bleed, h/o ascites, Type II DM, RLS, GERD, h/o hepatic encephalopathy on lactulose, anemia of chronic disease (Baseline around 8-9), thrombocytopenia, hypertension came with complaints of fatigue and weakness and not acting well as per . The patient has been having regular loose bowel movements with lactulose without constipation. alert and oriented 3. Hemodynamically stable. Assessment and Plan 1. Altered mental status with hyperammonemia - GI consulted - continue with lactulose titrating to 3 loose bowel movements. Clinically getting better - no obvious source of infection identified 2. Cirrhosis with portal hypertension and gastropathy - last EGD in 2015 3. Worsening Acute on chronic anemia - h/h stable. 4. Chronic thrombocytopenia with lactic acidosis (secondary to liver failure) 5. [place] - Continue with Propranolol and Rifaximin 6. Restless legs syndrome - Initiated on Pramipexole Follow up on GI as outpatient. Discharge anticipate soon.
[2017-05-27 09:22] LABS: ABSOLUTE EOSINOPHIL COUNT 0.3 /CUMM (0.0-0.7); ABSOLUTE MONOCYTE COUNT 0.6 /CUMM (0.10-0.60); MEAN PLATELET VOLUME 8.1 FL (7.4-10.4); RED BLOOD CELL CT 2.58 /CUMM (4.70-6.10)
[2017-05-27 10:14] LABS: ABSOLUTE BASOPHIL COUNT 0 /CUMM (0.0-0.2); ABSOLUTE GRANULOCYTE CT 2.9 /CUMM (1.4-6.5); BASOPHIL % 0.8 % (0.0-2.0); EOSINOPHIL % 5.8 % (0-5); GRANULOCYTE % 60.9 % (42.2-75.2); MEAN CORPUSCULAR HGB 27.4 PG (27.0-31.0); MEAN CORPUSCULAR HGB CONC 31.5 G/DL (33.0-37.0); RBC DISTRIBUTION WIDTH 17.3 % (11.5-14.5); WHITE BLOOD CELL COUNT 4.8 /CUMM (4.8-10.8)
--- NOTE | 2017-05-27 10:30 | PN- Gastroenterology ---
Assessment/Plan GI Assessment/Recommendations: ASSESSMENT: 1. Hepatic Encephalopathy -- clinically improved 2. 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 Chronic Anemia without signs of GI blood loss RECOMMENDATIONS: 1. Would check with [facility] to see when patient last had EGD 2. Would also check to see what patient's baseline H&H's. If there has been a substantial drop in H&H were patient has not had EGD recently would consider EGD prior to discharge. 3. We'll try and speak with patient's regarding whether patient is at baseline and regarding whether patient has had recent endoscopic workup. 4. If patient has had endoscopic workup. There is been no marked decrease in H &H and if patient is truly at baseline can be discharged to home with close follow-up by his primary electroless plater at [place]. Subjective Subjective: Patient reports that he is at baseline. He slept well through the night. Objective Vital Signs and I&Os Vital Signs Date Time Temp Pulse Resp B/P B/P Pulse O2 O2 Flow FiO2 Mean Ox Delivery Rate 05/27 0925 100/50 05/27 0634 98.5 70 18 100/54 98 Room Air 05/26 2222 98.4 20 96 05/26 202 66 130/70 05/26 1410 98.4 67 20 100/62 96 Room Air Intake & Output 05/27 1600 05/27 0400 05/26 1600 05/26 0400 05/25 1600 05/25 0400 Intake Total 0 027 220 9744 Output Total 400 975 400 Balance -400 600 -45 840 Intake, IV 0 10 1000 Intake, Oral 0 600 920 240 Number 0 Bowel Movements Output, Urine 400 975 400 Patient 180 lb 188 lb 188 lb Weight Weight Reported by Patient Reported by Patient Measurement Method Physical Exam General Appearance: well developed/nourished, no apparent distress, alert, awake Respiratory: normal breath sounds, lungs clear Cardiovascular: regular rate/rhythm Abdomen: normal bowel sounds, soft, non-tender, no organomegaly Extremities: no edema Neurologic/Psychiatric: alert, oriented x 3, No asterixis Skin: intact, warm/dry Current Medications: Current Medications Sig/Krista Start time Last Medication Dose Route Stop Time Status Admin Atorvastatin Calcium 40 MG 1700 05/26 1700 AC 05/26 PO 1633 Cholecalciferol 2,000 IU DAILY 05/25 1723 AC 05/27 PO 0926 Folic Acid 1 MG DAILY 05/25 172 AC 05/27 PO 0925 Insulin Aspart 0 TIDAC 05/26 0800 AC 05/26 SC 1632 Insulin Detemir 20 UNITS QPM 05/25 2199 AC 05/26 SC 2033 Lactobacillus 1 CAP DAILY 05/25 172 AC 05/27 Acidophilus PO 09 Lactulose 20 GM BID 05/25 2199 AC 05/27 PO 0930 Mirtazapine 15 MG AT BEDTIME 05/26 2199 AC 05/26 PO 2028 Omeprazole 40 MG DAILY AC 05/28 0700 AC PO Pantoprazole Sodium 40 MG DAILY 05/25 172 DC 05/27 IV 0928 Phytonadione 5 MG DAILY 05/25 1726 AC 05/27 PO 09 Pramipexole 0.125 MG 05/25 AC 05/26 Dihydrochloride PO 2027 Propranolol HCl 10 MG BID 05/25 2199 AC 05/26 PO 2027 Rifaximin 550 MG BID 05/25 2199 AC 05/27 PO 09 Trazodone HCl 50 MG QPM 05/25 2199 DC 05/25 PO 211 Results Pertinent Lab Results: Laboratory Tests 05/27 05/26 05/26 0720 1800 1640 Hematology CBC w Diff Pending Cancelled NO MAN DIFF REQ WBC (4.8 - 10.8 /CUMM) Pending Cancelled 6.0 RBC (4.70 - 6.10 /CUMM) Pending Cancelled 2.83 L Hgb (14.0 - 18.0 G/DL) Pending Cancelled 7.7 L Hct (42 - 52 %) Pending Cancelled 24.7 L MCV (80.0 - 94.0 FL) Pending Cancelled 87.0 MCH (27.0 - 31.0 PG) Pending Cancelled 27.2 MCHC (33.0 - 37.0 G/DL) Pending Cancelled 31.3 L RDW (11.5 - 14.5 %) Pending Cancelled 16.5 H Plt Count (130 - 400 /CUMM) Pending Cancelled 119 L MPV (7.4 - 10.4 FL) Pending Cancelled 8.0 Gran % (42.2 - 75.2 %) 68.9 Lymphocytes % (20.5 - 51.1 %) 15.3 L Monocytes % (1.7 - 9.3 %) 10.2 H Eosinophils % (0 - 5 %) 4.8 Basophils % (0.0 - 2.0 %) 0.8 Absolute Granulocytes (1.4 - 6.5 /CUMM) 4.1 Absolute Lymphocytes (1.2 - 3.4 /CUMM) 0.9 L Absolute Monocytes (0.10 - 0.60 /CUMM) 0.6 Absolute Eosinophils (0.0 - 0.7 /CUMM) 0.3 Absolute Basophils (0.0 - 0.2 /CUMM) 0 05/26 05/26 1400 0825 Chemistry Sodium (137 - 145 mmol/L) 139 Potassium (3.5 - 5.1 mmol/L) 3.7 Chloride (98 - 107 mmol/L) 108 H Carbon Dioxide (22 - 30 mmol/L) 24 Anion Gap (5 - 16) 7 BUN (9 - 20 mg/dL) 11 Creatinine (0.7 - 1.2 mg/dL) 0.7 Estimated GFR (>60 ml/min) > 60 BUN/Creatinine Ratio (7 - 25 %) 15.7 Hemoglobin A1c (4.2 - 5.8 %) 5.1 Iron (49 - 181 ug/dL) 20 L TIBC (261 - 462 ug/dL) 362 Ferritin (17.9 - 464 ng/mL) 12.8 L Triglycerides (<150 mg/dL) 120 Cholesterol (< 200 MG/DL) 120 LDL Cholesterol, Calc (65 - 129 mg/dL) 63 L HDL Cholesterol (40 - 60 mg/dL) 33 L Cholesterol/HDL Ratio (0.00 - 4.88 %) 4 Hematology CBC w Diff Cancelled NO MAN DIFF REQ WBC (4.8 - 10.8 /CUMM) Cancelled 4.8 RBC (4.70 - 6.10 /CUMM) Cancelled 2.58 L Hgb (14.0 - 18.0 G/DL) Cancelled 7.1 *L Hct (42 - 52 %) Cancelled 22.3 L MCV (80.0 - 94.0 FL) Cancelled 86.6 MCH (27.0 - 31.0 PG) Cancelled 27.5 MCHC (33.0 - 37.0 G/DL) Cancelled 31.8 L RDW (11.5 - 14.5 %) Cancelled 16.6 H Plt Count (130 - 400 /CUMM) Cancelled 98 L MPV (7.4 - 10.4 FL) Cancelled 8.1 Gran % (42.2 - 75.2 %) 65.6 Lymphocytes % (20.5 - 51.1 %) 17.4 L Monocytes % (1.7 - 9.3 %) 10.8 H Eosinophils % (0 - 5 %) 4.9 Basophils % (0.0 - 2.0 %) 1.3 Absolute Granulocytes (1.4 - 6.5 /CUMM) 3.1 Absolute Lymphocytes (1.2 - 3.4 /CUMM) 0.8 L Absolute Monocytes (0.10 - 0.60 /CUMM) 0.5 Absolute Eosinophils (0.0 - 0.7 /CUMM) 0.2 Absolute Basophils (0.0 - 0.2 /CUMM) 0.1 05/26 05/25 05/25 05/25 0350 1346 1130 1020 Chemistry Lactic Acid (0.7 - 2.1 mmol/L) 4.0 H 2.8 H Ammonia (9 - 30 umol/L) 96 H Urines Urine Color (YEL,AMB,STR) YEL Urine Clarity (CLEAR) CLEAR Urine pH (5.0 - 8.0) 6.0 Ur Specific Hye (1.001 - 1.035) <= 1.005 Urine Protein (NEG,<30 MG/DL) NEG Urine Ketones (NEG) NEG Urine Nitrite (NEG) NEG Urine Bilirubin (NEG) NEG Urine Urobilinogen (0.1 - 1.0 EU/dl) 0.2 Ur Leukocyte Esterase (NEG) NEG Ur Microscopic EXAM NOT REQUIRED Urine Hemoglobin (NEG) NEG Urine Glucose (N MG/DL) NEG 05/25 1020 Chemistry Sodium (137 - 145 mmol/L) 141 Potassium (3.5 - 5.1 mmol/L) 3.8 Chloride (98 - 107 mmol/L) 106 Carbon Dioxide (22 - 30 mmol/L) 24 Anion Gap (5 - 16) 11 BUN (9 - 20 mg/dL) 13 Creatinine (0.7 - 1.2 mg/dL) 0.7 Estimated GFR (>60 ml/min) > 60 BUN/Creatinine Ratio (7 - 25 %) 18.6 Glucose (65 - 99 mg/dL) 250 H Calcium (8.4 - 10.2 mg/dL) 9.0 Magnesium (1.6 - 2.3 mg/dL) 1.7 Total Bilirubin (0.2 - 1.3 mg/dL) 0.9 AST (17 - 59 U/L) 48 ALT (21 - 72 U/L) 36 Alkaline Phosphatase (< 127 U/L) 152 H Troponin I (<0.11 ng/ml) < 0.01 Total Protein (6.3 - 8.2 g/dL) 6.2 L Albumin (3.5 - 5.0 g/dL) 2.9 L Globulin (1.9 - 4.2 gm/dL) 3.3 Albumin/Globulin Ratio (1.1 - 2.2 %) 0.9 L Coagulation PT (9.4 - 12.5 SEC) 15.2 H INR (0.90 - 1.17) 1.39 H APTT (25 - 37 SEC) 35 Hematology CBC w Diff NO MAN DIFF REQ WBC (4.8 - 10.8 /CUMM) 5.2 RBC (4.70 - 6.10 /CUMM) 2.77 L Hgb (14.0 - 18.0 G/DL) 7.6 L Hct (42 - 52 %) 23.9 L MCV (80.0 - 94.0 FL) 86.3 MCH (27.0 - 31.0 PG) 27.3 MCHC (33.0 - 37.0 G/DL) 31.7 L RDW (11.5 - 14.5 %) 16.2 H Plt Count (130 - 400 /CUMM) 97 L MPV (7.4 - 10.4 FL) 8.0 Gran % (42.2 - 75.2 %) 71.3 Lymphocytes % (20.5 - 51.1 %) 14.6 L Monocytes % (1.7 - 9.3 %) 9.3 Eosinophils % (0 - 5 %) 4.5 Basophils % (0.0 - 2.0 %) 0.3 Absolute Granulocytes (1.4 - 6.5 /CUMM) 3.7 Absolute Lymphocytes (1.2 - 3.4 /CUMM) 0.8 L Absolute Monocytes (0.10 - 0.60 /CUMM) 0.5 Absolute Eosinophils (0.0 - 0.7 /CUMM) 0.2 Absolute Basophils (0.0 - 0.2 /CUMM) 0
[2017-05-27 11:02] LABS: HEMATOCRIT 22.4 % (42-52); PLATELET COUNT 91 /CUMM (130-400)
[2017-05-27 14:35] VITALS: BP 100/58
[2017-05-27 14:52] LABS: ABSOLUTE BASOPHIL COUNT 0 /CUMM (0.0-0.2); ABSOLUTE EOSINOPHIL COUNT 0.2 /CUMM (0.0-0.7); ABSOLUTE GRANULOCYTE CT 2.8 /CUMM (1.4-6.5); ABSOLUTE LYMPH COUNT 0.8 /CUMM (1.2-3.4); ABSOLUTE MONOCYTE COUNT 0.5 /CUMM (0.10-0.60); BASOPHIL % 0.3 % (0.0-2.0); EOSINOPHIL % 4.7 % (0-5); GRANULOCYTE % 65.2 % (42.2-75.2); HEMATOCRIT 23.5 % (42-52); MEAN CORPUSCULAR HGB 27.9 PG (27.0-31.0); MEAN CORPUSCULAR HGB CONC 32.2 G/DL (33.0-37.0); MEAN CORPUSCULAR VOLUME 86.6 FL (80.0-94.0); MEAN PLATELET VOLUME 8.4 FL (7.4-10.4); PLATELET COUNT 87 /CUMM (130-400); RBC DISTRIBUTION WIDTH 17.2 % (11.5-14.5); RED BLOOD CELL CT 2.72 /CUMM (4.70-6.10); WHITE BLOOD CELL COUNT 4.3 /CUMM (4.8-10.8)
--- NOTE | 2017-05-27 15:13 | Patient Discharge Instructions ---
Discharge Instructions General Discharge Information You were seen/treated for: Generalized weakness, metabolic encephalopathy-resolved Watch for these problems: In case of chest pain, chest pressure, nausea, vomiting, GI bleed, altered mental status please go to the nearest emergency room Special Instructions: Please follow-up with your primary care provider and data input clerk within 1 -2 weeks of discharge Diet Continue normal diet: No Recommended Diet: Diabetic Activity Full Activity/No Limits: No Activity Self Limited: Yes Acute Coronary Syndrome Inclusion Criteria At DC or during hospital stay patient has or had the following: ACS DIAGNOSIS No Discharge Core Measures Meds if any: Prescribed or Continued at Discharge Meds if any: NOT Prescribed or Continued at Discharge Congestive Heart Failure Inclusion Criteria At DC or during hospital stay patient has or had the following: CHF DIAGNOSIS No Discharge Core Measures Meds if any: Prescribed or Continued at Discharge Meds if any: NOT Prescribed or Continued at Discharge Cerebrovascular accident Inclusion Criteria At DC or during hospital stay patient has or had the following: CVA/TIA Diagnosis No Discharge Core Measures Meds if any: Prescribed or Continued at Discharge Meds if any: NOT Prescribed or Continued at Discharge Venous thromboembolism Inclusion Criteria VTE Diagnosis No VTE Type NONE VTE Confirmed by (Test) NONE Discharge Core Measures - Per Current guidelines, there needs to be overlap - treatment for the first 5 days of Warfarin therapy. - If discharged on Warfarin prior to 5 days of - overlap therapy, the patient will need to be - assessed for post discharge needs including - *Post discharge parental anticoagulation - *Warfarin and/or parental anticoagulation education - *Follow up date to check INR post discharge At least 5 days overlap therapy as Inpatient No Meds if any: Prescribed or Continued at Discharge Note: Overlap Therapy is Warfarin and Anticoagulant Meds if any: NOT Prescribed or Continued at Discharge
[2017-05-27] MEDS ORDERED: REMERON15 M3 PO (15:37)
[2017-05-27] MEDS ORDERED: MIRAPEX0.125 M1 PO (15:37)
--- NOTE | 2017-05-28 08:01 | Discharge Summary ---
Visit Information Visit Dates Admission Date: 05/25/17 Discharge Date: 05/27/17 Hospital Course Course Attending Physician: Gabo Holden MD Primary Care Physician: Reymundo Francois MD Hospital Course: 71-year-old male with past medical history significant for [place], history of GI bleed, history of ascites, type 2 diabetes mellitus, sciatica arthritis, gastroesophageal reflux disease, mitral valve prolapse, RLS, cervical fusion surgery and spinal stenosis, hepatic encephalopathy on lactulose, anemia, thrombocytopenia, hypertension came to emergency department with chief complaint of worsening fatigue for the last 1 week. History was also confirmed in the presence of . According to patient's he has been on Lasix and spironalactone for lower extremity edema and abdominal swelling which was recently discontinued on Saturday as the swelling was improving. As per patient has been more confused beginning Saturday. His recent memory was more impaired as he would forget things that he recently talked about. Patient denied any recent fall or head trauma. Patient had waxing and waning symptoms of confusion and lethargy for the last 1 week. Review of system was negative for any acute headache, visual change, some weakness, nausea, vomiting, chest pain, shortness of breath, rash, fever, change in urinary or bowel habits. Patient follows up with senior qa automation engineer, roller shop supervisor, object oriented developer, at [facility] and hot pond operator Dr. Hamilton at [facility]. Hospital course Patient was treated for generalized weakness, metabolic encephalopathy-resolved, chronic anemia, chronic thrombocytopenia,[place]. Patient admitted for overall generalized weakness could be attributed to his chronic anemia. Patient also has history of cirrhosis secondary due to [place], with known portal hypertension and portal hypertensive gastropathy. Patient has history of ascites in the past but no evidence of abdominal distention or ascites on the ultrasound. Current ammonia level is 96, which could be contributing to acute toxic metabolic encephalopathy that patient has experienced waxing and waning symptoms in the past 1 week. Upon admission patient had Lactic acidosis which is likely secondary to chronic liver disease. Triggers for encephalopathy such as underlying infections were ruled out. Patient was hydrated well and was continued on rifaximin and lactulose to titrate 3-4 bowel movements daily. Patient mentation improved well. Patient was discharged home to follow up with his senior qa automation engineer at [facility]. Allergies: Coded Allergies: No Known Allergies (02/06/17) Pertinent Lab Results: Chest x-ray IMPRESSION: No acute pulmonary disease. No evidence of pulmonary venous hypertension or pleural effusion. Ultrasound abdomen 1. Hepatic cirrhosis and splenomegaly. No ascites or other new finding compared to 02/27/2017. 2. Cholelithiasis without evidence of acute cholecystitis. Disposition Summary Disposition Principal Diagnosis: Hepatic encephalopathy-resolved Additional Diagnosis: NAFLD Discharge Disposition: home or self care Discharge Instructions General Discharge Information Code Status: Full Code Patient's Diet: Diabetic diet Patient's Activity: As tolerated Follow-Up Instructions/Appts: Please follow-up with your primary care provider and senior qa automation engineer within 1 -2 weeks of discharge Medications at Discharge Discharge Medications: Stop taking the following medications: Trazodone HCl (Trazodone HCl) 50 MG TABLET ORAL Every night Qty = 30 Continue taking these medications: Simvastatin (Zocor*) 40 MG TABLET 1 Tablet ORAL Every night Comments: Last Taken: 05/26/17 Time: 430PM GIVEN ATORVASTATIN IN HOSPITAL Insulin Glargine,Hum.rec.anlog (Lantus Solostar) 100 UNIT/ML (3 ML) INSULN.PEN 20 Unit Inject into fatty tissue Every night Comments: NOT GIVEN IN HOSPITAL Ferrous Sulfate (IRON) 325 MG (65 MG IRON) TABLET 1 Tablet ORAL DAILY Comments: NOT GIVEN Cholecalciferol (Vitamin D3) (Vitamin D) 2,000 UNIT TABLET 1 Tablet ORAL DAILY Comments: Last Taken: 05/27/17 Time: 930AM Sitagliptin Phos/Metformin HCl (Janumet 50-1,000 MG Tablet) 1 EACH TABLET 1 Tablet ORAL TWICE DAILY Qty = 60 Comments: NOT GIVEN Ergocalciferol (Vitamin D2) (Vitamin D2) 50,000 UNIT CAPSULE 1 Capsule ORAL EVERY SATURDAY Comments: NOT GIVEN Propranolol HCl (Propranolol HCl) 10 MG TABLET 1 Tablet ORAL TWICE DAILY Comments: Last Taken: 05/26/17 Time: 830PM Rifaximin (Xifaxan) 550 MG TABLET 1 Tablet ORAL TWICE DAILY Qty = 60 Comments: Last Taken: 05/27/17 Time: 930AM Lactobacillus Acidophilus (Probiotic) 10 BILLION CELL CAPSULE 1 Capsule ORAL DAILY Comments: Last Taken: 05/27/17 Time: 930AM Folic Acid (Folic Acid) 1 MG TABLET 1 Tablet ORAL DAILY Comments: Last Taken: 05/27/17 Time: 930AM Milk Thistle Seed Extract (Milk Thistle) 175 MG CAPSULE 1 Capsule ORAL DAILY Comments: NOT GIVEN IN HOSPITAL Lactulose (Lactulose) 20 GM/30 ML SOLUTION 20 Gram ORAL DAILY Days = 30 Comments: Last Taken: 05/27/17 Time: 930AM Pantoprazole Sodium (Pantoprazole Sodium) 40 MG TABLET.DR 1 Tablet ORAL Every Morning Qty = 90 Comments: Last Taken: 05/27/17 Time: 930AM IV FORM GIVEN Start taking the following new medications: Mirtazapine (Remeron) 15 MG TAB.RAPDIS 1 Tablet ORAL AT BEDTIME Qty = 14 No Refills Comments: Last Taken: 05/26/17 Time: 830PM Pramipexole Di-HCl (Mirapex) 0.125 MG TABLET 1 Tablet ORAL Every night Qty = 14 No Refills Instructions: TAKE AROUND 8 PM Comments: Last Taken: 05/26/17 Time: 830PM The following medications have been changed: Old: Phytonadione (Mephyton) 5 MG TABLET 2 Tablet ORAL DAILY Days = 30 New: Phytonadione (Mephyton) 5 MG TABLET 1 Tablet ORAL DAILY Days = 30 Comments: Last Taken: 05/27/17 Time: 930AM Copies To: Priscila PRADO,Reymundo Morrison Attending Review Statement Documenting Attending: Gabo Holden MD
== END 2017-05-27 16:30 | disposition home health service (06) | DRG 442 ==
LOC: ERH 10:02 → 2NA 16:01 → ERHI 16:01 → ENRESERV 16:52 → ENTRNSPT 17:27 → EDTRNSPTSTS 17:48 → 2NA 18:04 → CMPTRNSPT 18:18 → 2NA 05-26 17:58 → ENPENDDIS 05-27 15:24 → ENTRNSPT 05-27 16:07 → 2NA 05-27 16:30 → CMPTRNSPT 05-27 16:38
PROVIDERS: Physician Assistant; Student in an Organized Health Care Education/Training Program
DX: K72.90 Hepatic failure, unspecified without coma (principal); E87.2 Acidosis; D69.6 Thrombocytopenia, unspecified; E72.20 Disorder of urea cycle metabolism, unspecified; R18.8 Other ascites; L40.50 Arthropathic psoriasis, unspecified; K76.6 Portal hypertension; R41.82 Altered mental status, unspecified; D64.9 Anemia, unspecified; G25.81 Restless legs syndrome; M48.00 Spinal stenosis, site unspecified; K21.9 Gastro-esophageal reflux disease without esophagitis; E78.5 Hyperlipidemia, unspecified; Z98.1 Arthrodesis status; E11.9 Type 2 diabetes mellitus without complications; Z79.4 Long term (current) use of insulin; K74.60 Unspecified cirrhosis of liver; I34.1 Nonrheumatic mitral (valve) prolapse; K63.5 Polyp of colon; K75.81 Nonalcoholic steatohepatitis (NASH)
CPT/HCPCS: 2NASP; 36415; 36592; 71046; 81003; 82436; 86920; 87086; 87804; 87804-59; 93005; 93010; 97116-GO; 97161-GP; 97530-GO; J3490

== ENCOUNTER 2017-05-31 14:39 | Inpatient (IN) | payer OTHER, MEDICARE ==
[~2017-05-31] VITALS: Ht 170.2 cm; Wt 90.3 kg
[~2017-05-31 14:39] MED LIST changes: +MIRAPEX0.125 M1 PO; +PANTOPRAZOLE SO40 M1 PO; +REMERON15 M3 PO
--- NOTE | 2017-05-31 15:17 | ED AMS/SEIZURE/WEAK/DIZZY ---
History of Present Illness General Chief Complaint: Altered Mental Status Stated Complaint: SENT BY [facility] FOR EVAL OF CONFUSION Source: patient, family, old records Exam Limitations: no limitations Vital Signs & Intake/Output Vital Signs & Intake/Output Vital Signs Date Time Temp Pulse Resp B/P B/P Pulse O2 O2 Flow FiO2 Mean Ox Delivery Rate 05/31 1601 Room Air 05/31 1442 97.2 75 20 123/60 98 Room Air Allergies Coded Allergies: No Known Allergies (02/06/17) Reconcile Medications Cholecalciferol (Vitamin D3) (Vitamin D) 2,000 UNIT TABLET 1 TAB PO DAILY VITAMIN SUPPORT (Reported) Ergocalciferol (Vitamin D2) (Vitamin D2) 50,000 UNIT CAPSULE 1 CAP PO QTHURS BONE STRENGTH (Reported) Ferrous Sulfate (IRON) 325 MG (65 MG IRON) TABLET 1 TAB PO DAILY SUPPLEMENT ( Reported) Folic Acid 1 MG TABLET 1 TAB PO DAILY VITAMIN SUPPORT (Reported) Insulin Glargine,Hum.rec.anlog (Lantus Solostar) 100 UNIT/ML (3 ML) INSULN.PEN 20 UNIT SC QPM DIABETES (Reported) Lactobacillus Acidophilus (Probiotic) 10 BILLION CELL CAPSULE 1 CAP PO DAILY GI (Reported) Lactulose 20 GM/30 ML SOLUTION 20 GM PO DAILY Decrease the amonia Milk Thistle Seed Extract (Milk Thistle) 175 MG CAPSULE 1 CAP PO DAILY SUPPLEMENT (Reported) Mirtazapine (Remeron) 15 MG TAB.RAPDIS 1 TAB PO AT BEDTIME sleep Pantoprazole Sodium 40 MG TABLET.DR 1 TAB PO QAM GI (Reported) Phytonadione (Mephyton) 5 MG TABLET 1 TAB PO DAILY bleeding risk Pramipexole Di-HCl (Mirapex) 0.125 MG TABLET 1 TAB PO QPM RESTLESS LEGS TAKE AROUND 8 PM Propranolol HCl 10 MG TABLET 1 TAB PO BID BP (Reported) Rifaximin (Xifaxan) 550 MG TABLET 1 TAB PO BID GI (Reported) Simvastatin (Zocor*) 40 MG TABLET 1 TAB PO QPM CHOLESTEROL (Reported) Sitagliptin Phos/Metformin HCl (Janumet 50-1,000 MG Tablet) 1 EACH TABLET 1 TAB PO BID diabetes mellitus Triage Note: PT TO ED WITH FOR EVAL OF CONFUSION. PT WAS ADMITTED TO [facility] LAST WEEK FOR ANEMIA AND HIGH AMMONIA LEVELS, SENT HOME ON SATURDAY 05/27. PT STILL C/O WEAKNESS, DENIES ANY PAIN. VISITING NURSE CAME TO THE HOUSE TODAY AND ADVISED PT TO COME TO ED FOR FURTHER EVAL. PT IS ALERT TO SELF ONLY. APPEARS PALE. Triage Nurses Notes Reviewed? yes Onset: Morning Duration: hour(s):, constant, continues in ED Timing: recent history Severity: moderate No Modifying Factors: none HPI: Patient was recently hospitalized for hepatic encephalopathy and generalized weakness 4 days ago. Since discharge he is had aggressive increasing weakness and confusion. Prior to admission he was unable to identify simple objects or concentrate on simple tasks. There's been no fever chills nausea vomiting diarrhea abdominal pain chest pain shortness breath headache dysuria rash bleeding falls. Past History Travel History Traveled to [place] past 21 day No Medical History Any Pertinent Medical History? see below for history Neurological: dizziness, restless leg syndrome EENT: NONE Cardiovascular: hypertension, hyperlipidemia, MITRAL VALVE PROLAPSE Chest pain syndrome Respiratory: NONE Gastrointestinal: GERD, upper GI bleed, Colonic Polyp ASCITES Hepatic: cirrhosis, FATTY LIVER Renal: NONE Musculoskeletal: psoariatic arthritis, spinal stenosis Psychiatric: NONE Endocrine: diabetes Blood Disorders: NONE Cancer(s): NONE EMISSIONS TECHNICIAN/Reproductive: NONE History of MRSA: No History of VRE: No History of CDIFF: No Influenza Vaccine: 11/09/16 Surgical History Surgical History: cervical fusion THORACIC FUSION Psychosocial History Who do you live with Spouse Services at Home None What is your primary language [place] Tobacco Use: Never used ETOH Use: denies use Illicit Drug Use: denies illicit drug use Family History Family History, If Any: MOTHER (Breast cancer needed colectomy). FATHER (Skin CA of unknown type). . Relation not specified for: FH: diabetes mellitus Hx Contributory? No Review of Systems Review of Systems Constitutional: Reports: see HPI, malaise, weakness. EENTM: Reports: no symptoms. Respiratory: Reports: no symptoms. Cardiovascular: Reports: no symptoms. GI: Reports: no symptoms. Genitourinary: Reports: no symptoms. Musculoskeletal: Reports: no symptoms. Skin: Reports: no symptoms. Neurological/Psychological: Reports: see HPI, cognitive dysfunction, confusion. Hematologic/Endocrine: Reports: no symptoms. Immunologic/Allergic: Reports: no symptoms. All Other Systems: Reviewed and Negative Physical Exam Physical Exam General Appearance: well developed/nourished, alert, awake, anxious, mild distress, obese Head: atraumatic, normal appearance Eyes: Bilateral: normal appearance, PERRL, EOMI. Ears, Nose, Throat: normal pharynx, normal ENT inspection Neck: normal inspection, supple, full range of motion, no midline tenderness Respiratory: normal breath sounds, chest non-tender, no respiratory distress, quiet respiration, lungs clear Cardiovascular: regular rate/rhythm, normal peripheral pulses, norml femoral pulses equa Peripheral Pulses: 4+ carotid (R), 4+ carotid (L) Gastrointestinal: normal bowel sounds, soft, non-tender, no organomegaly Back: normal inspection, normal range of motion, no vertebral tenderness Extremities: normal range of motion, no ligament instability Neurologic/Psych: no motor/sensory deficits, awake, alert, normal mood/affect, triage nurse II-XII nml as tested, motor weakness, no asterixis Reflexes: 2+: bicep (R), bicep (L). Skin: intact, pallor Lymphatic: no anterior cervical giovana Core Measures ACS in differential dx? No CVA/TIA Diagnosis No Sepsis Present: No Sepsis Focused Exam Completed? No Progress Differential Diagnosis: dehydration, electrolyte imbalance, GI bleed, hypoglycemia, hypoxia Plan of Care: Orders Procedure Date/time Status Regular Diet 06/01 B Active Patient Data 05/31 1645 Active OXYGEN SETUP (GEN) 05/31 1624 Active Saline Lock 05/31 1624 Active Admit to inpatient 05/31 1624 Active Vital Signs 05/31 1624 Active Activity/Ambulation 05/31 1624 Active Code Status 05/31 1624 Active TROPONIN LEVEL 05/31 1503 Complete PARTIAL THROMBOPLASTIN TIME 05/31 1503 Active PROTHROMBIN TIME 05/31 1503 Active AMMONIA 05/31 1503 Complete MAGNESIUM 05/31 1503 Complete COMPREHENSIVE METABOLIC PANEL 05/31 1503 Complete CBC WITHOUT DIFFERENTIAL 05/31 1503 Complete EKG 05/31 1503 Active Laboratory Tests 05/31/17 1535: Anion Gap 11, Estimated GFR > 60, BUN/Creatinine Ratio 18.6, Glucose 194 H, Calcium 8.8, Magnesium 1.7, Total Bilirubin 1.0, AST 45, ALT 40, Alkaline Phosphatase 124, Ammonia 113 H, Troponin I < 0.01, Total Protein 6.4, Albumin 2.8 L, Globulin 3.6, Albumin/Globulin Ratio 0.8 L, PT Pending, INR Pending, APTT Pending, CBC w Diff NO MAN DIFF REQ, RBC 2.68 L, MCV 86.3, MCH 27.8, MCHC 32.3 L, RDW 17.1 H, MPV 7.7, Gran % 64.2, Lymphocytes % 18.6 L, Monocytes % 12.1 H, Eosinophils % 4.6, Basophils % 0.5, Absolute Granulocytes 3.2, Absolute Lymphocytes 0.9 L, Absolute Monocytes 0.6, Absolute Eosinophils 0.2, Absolute Basophils 0 Initial ED EKG: normal axis, normal intervals, normal p-waves, normal QRS complex, normal sinus rhythm, nonspecific ST T wave chg Prior EKG: unchanged Rhythm Strip: normal sinus rhythm Departure Departure Time of Disposition: 1644 Disposition: STILL A PATIENT Condition: Stable Clinical Impression Primary Impression: Hepatic encephalopathy syndrome Secondary Impressions: Chronic disease anemia Referrals: Priscial PRADO,Reymundo Morrison (PCP/Family) Departure Forms: Customer Survey General Discharge Information Admission Note Spoke With: Chloe Diehl MD Documentation of Exam: Documentation of any treatments & extenuating circumstances including Concerns Regarding Discharge (functional status, medication knowledge or non-compliance, living conditions, etc.) that warrant an admission of greater than 48 hours rather than observation: Previous hospitalization of 4 days unsuccessful in maintaining normal ammonia level in mental status. Will require serial lab exam medication adjustment dietary evaluation GI evaluation frequent neurology checks continuing care discharge planning
[2017-05-31 15:50] LABS: ABSOLUTE BASOPHIL COUNT 0 /CUMM (0.0-0.2); ABSOLUTE EOSINOPHIL COUNT 0.2 /CUMM (0.0-0.7); ABSOLUTE GRANULOCYTE CT 3.2 /CUMM (1.4-6.5); ABSOLUTE LYMPH COUNT 0.9 /CUMM (1.2-3.4); ABSOLUTE MONOCYTE COUNT 0.6 /CUMM (0.10-0.60); BASOPHIL % 0.5 % (0.0-2.0); EOSINOPHIL % 4.6 % (0-5); GRANULOCYTE % 64.2 % (42.2-75.2); HEMATOCRIT 23.1 % (42-52); MEAN CORPUSCULAR HGB 27.8 PG (27.0-31.0); MEAN CORPUSCULAR HGB CONC 32.3 G/DL (33.0-37.0); MEAN CORPUSCULAR VOLUME 86.3 FL (80.0-94.0); MEAN PLATELET VOLUME 7.7 FL (7.4-10.4); RBC DISTRIBUTION WIDTH 17.1 % (11.5-14.5); RED BLOOD CELL CT 2.68 /CUMM (4.70-6.10); WHITE BLOOD CELL COUNT 5.1 /CUMM (4.8-10.8)
[2017-05-31 16:01] LABS: PLATELET COUNT 85 /CUMM (130-400)
[2017-05-31 16:03] LABS: PTT 39 SEC (25-37)
--- NOTE | 2017-05-31 16:43 | History & Physical ---
Victoriano PRADO,[facility] 05/31/17 2792: General Information and HPI MD Statement: I have seen and personally examined CUATE RIZVI and documented this H&P. The patient is a 71 year old M who presented with a patient stated chief complaint of [confusion, weakness]. Source of Information: patient, family Exam Limitations: not alert/orientated, clinical condition, confusion History of Present Illness: 71-year-old male with past medical history significant for hypertension, hyperlipidemia, [place], GI bleed, ascites, type 2 diabetes mellitus, gastroesophageal reflux disease, mitral valve prolapse, RLS, cervical fusion surgery and spinal stenosis, hepatic encephalopathy on lactulose, anemia, thrombocytopenia was brought in to the ED for worsening confusion and fatigue. Most of the history has been obtained from the . The patient was recently discharged from [facility] on 05/28 after being treated for similar complaints. The states that since discharge the patient was never really 100%. He has been feeling tired and confused which has been progressing each day. Yesterday, the confusion became really bad and he was unable to differentiate a tv remote from the telephone. The became concerned that maybe his ammonia levels are rising again. He was confused all day yesterday and last night and kept her up. Per , the patient has been compliant with his medications. He has been receiving 2 tablespoons of lactulose/day. Has 5 bowel movements a day which is normal for him. Of note, mentions that the patient has unsteady gait (ataxia) at baseline. Allergies/Medications Allergies: Coded Allergies: No Known Allergies (02/06/17) Home Med list Cholecalciferol (Vitamin D3) (Vitamin D) 2,000 UNIT TABLET 1 TAB PO DAILY VITAMIN SUPPORT (Reported) Ergocalciferol (Vitamin D2) (Vitamin D2) 50,000 UNIT CAPSULE 1 CAP PO QTHURS BONE STRENGTH (Reported) Ferrous Sulfate (IRON) 325 MG (65 MG IRON) TABLET 1 TAB PO DAILY SUPPLEMENT ( Reported) Folic Acid 1 MG TABLET 1 TAB PO DAILY VITAMIN SUPPORT (Reported) Insulin Glargine,Hum.rec.anlog (Lantus Solostar) 100 UNIT/ML (3 ML) INSULN.PEN 20 UNIT SC QPM DIABETES (Reported) Lactobacillus Acidophilus (Probiotic) 10 BILLION CELL CAPSULE 1 CAP PO DAILY GI (Reported) Lactulose 20 GM/30 ML SOLUTION 20 GM PO DAILY Decrease the amonia Milk Thistle Seed Extract (Milk Thistle) 175 MG CAPSULE 1 CAP PO DAILY SUPPLEMENT (Reported) Mirtazapine (Remeron) 15 MG TAB.RAPDIS 1 TAB PO AT BEDTIME sleep Pantoprazole Sodium 40 MG TABLET.DR 1 TAB PO QAM GI (Reported) Phytonadione (Mephyton) 5 MG TABLET 1 TAB PO DAILY bleeding risk Pramipexole Di-HCl (Mirapex) 0.125 MG TABLET 1 TAB PO QPM RESTLESS LEGS TAKE AROUND 8 PM Propranolol HCl 10 MG TABLET 1 TAB PO BID BP (Reported) Rifaximin (Xifaxan) 550 MG TABLET 1 TAB PO BID GI (Reported) Simvastatin (Zocor*) 40 MG TABLET 1 TAB PO QPM CHOLESTEROL (Reported) Sitagliptin Phos/Metformin HCl (Janumet 50-1,000 MG Tablet) 1 EACH TABLET 1 TAB PO BID diabetes mellitus Past History Travel History Traveled to [place] past 21 day No Medical History Neurological: dizziness, restless leg syndrome EENT: NONE Cardiovascular: hypertension, hyperlipidemia, MITRAL VALVE PROLAPSE Chest pain syndrome Respiratory: NONE Gastrointestinal: GERD, upper GI bleed, Colonic Polyp ASCITES Hepatic: cirrhosis, FATTY LIVER Renal: NONE Musculoskeletal: psoariatic arthritis, spinal stenosis Psychiatric: NONE Endocrine: diabetes Blood Disorders: NONE Cancer(s): NONE 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 FATHER (Skin CA of unknown type). . Relation not specified for: FH: diabetes mellitus Psychosocial History Who Do You Live With? spouse Services at Home: None Primary Language: Irish ETOH Use: denies use Illicit Drug Use: denies illicit drug use Functional Ability ADLs Independent: dressing, eating, toileting, bathing. Ambulation: independent IADLs Independent: shopping, housework, finances, food prep, telephone, transportation , medication admin. Review of Systems Review of Systems Constitutional: Reports: weakness. Denies: chills, fever. EENTM: Reports: no symptoms. Cardiovascular: Denies: chest pain, palpitations. Respiratory: Denies: short of breath. GI: Denies: abdominal pain, diarrhea. Genitourinary: Reports: no symptoms. Musculoskeletal: Reports: no symptoms. Skin: Reports: no symptoms. Neurological/Psychological: Reports: ataxia. Hematologic/Endocrine: Reports: no symptoms. Exam & Diagnostic Data Last 24 Hrs of Vital Signs/I&O Vital Signs Date Time Temp Pulse Resp B/P B/P Pulse O2 O2 Flow FiO2 Mean Ox Delivery Rate 05/31 1823 98.5 73 18 139/65 99 Room Air 05/31 1656 96.1 72 16 147/64 99 Room Air 05/31 1601 Room Air 05/31 1442 97.2 75 20 123/60 98 Room Air Intake & Output 05/31 1600 05/31 0800 05/31 0000 Intake Total Output Total Balance Patient 188 lb Weight Weight Reported by Patient Measurement Method Physical Exam General Appearance Alert, Cooperative, No Acute Distress, oriented x1 Skin No Rashes, No Breakdown Skin Temp/Moisture Exam: Warm/Dry Sepsis Skin Exam (color): Normal for Ethnicity HEENT Atraumatic Cardiovascular Normal S1, Normal S2, No Murmurs Lungs Clear to Auscultation, Normal Air Movement Abdomen Soft, No Tenderness Neurological Normal Speech Extremities No Edema Assessment/Plan Assessment: 71-year-old male with past medical history significant for hypertension, hyperlipidemia, [place], GI bleed, ascites, type 2 diabetes mellitus, gastroesophageal reflux disease, mitral valve prolapse, RLS, cervical fusion surgery and spinal stenosis, hepatic encephalopathy on lactulose, anemia, thrombocytopenia was brought in to the ED for worsening confusion and fatigue. Assessment: 1. Encephalopathy likely worsening of hepatic encephalopathy 2. Elevated ammonia 3. History of hypertension, hyperlipidemia Plan: * Admit the patient to general medicine floor * Start Lactulose 20mg TID and Rifaximin 550mg BID. * GI consult * Panculture * Repeat abdominal U/S for evaluation of ascites in am. * Diet: NPO at midnight for U/S abdomen tomorrow. * DVT Prophylaxis: ALPS * Code: Full Code As Ranked By This Provider Problem List: 1. Confusion Core Measures/Misc (11/25) Acute Coronary Syndrome ACS Diagnosis: No Congestive Heart Failure Congestive Heart Failure Diagnosis No Cerebrovascular Accident CVA/TIA Diagnosis: No VTE (View Protocol) VTE Risk Factors Age>40 No Mechanical VTE Prophylaxis d/t N/A MechProphylax Ordered No VTE Pharm Prophylaxis d/t NA PharmProphylax ordered Sepsis (View protocol) Sepsis Present: No Chloe Diehl MD 05/31/17 1827: Attending MD Review Statement Attending Statement Attending MD Statement: examined this patient, discuss w/resident/PA/[employer], agreed w/resident/PA/[employer], reviewed EMR data (avail) Attending Assessment/Plan: 71M PMH HTN, T2DM, GERD, 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 No ascites noted, afebrile, stable vitals. Plan - Admit to general medicine - Lactulose titrated to 2-3 BM/day - GI consult - Continue home medications - Repeat abdominal ultrasound to evaluate for ascites - DVT PPx Elisa Granados MD 05/31/17 2850: Resident Review Statement Resident Statement: examined this patient, discussed with internet developer, agreed with internet developer Other Findings: 71-year-old male with past medical history significant for hypertension, hyperlipidemia, [place], GI bleed, ascites, type 2 diabetes mellitus, gastroesophageal reflux disease, mitral valve prolapse, RLS, cervical fusion surgery and spinal stenosis, hepatic encephalopathy on lactulose, anemia, thrombocytopenia was brought in to the ED for worsening confusion and fatigue of 4 days duration. Patient was recently discharged from [facility] 4 days ago after being treated for hepatic encephalopathy. He had been prescribed lactulose 20 mg twice a day however he has been taking 20 mg once a day because she has been having 4-5 bowel movements a day and while on this reduced dose. However became increasingly confused, tired and weak since getting home until today when his says to bring him in for evaluation in the ER. Vital signs on presentation in the ER showed temperature of 97.2, pulse of 75 bpm, respiratory rate of 20 per minute, blood pressure 123/60 mmHg, pulse oximetry of 98% on room air. Physical exam on presentation General Appearance: Alert, Cooperative, No Acute Distress, oriented x1 Skin No Rashes, No Breakdown Skin Temp/Moisture Exam: Warm/Dry HEENT Atraumatic Cardiovascular Normal S1, Normal S2, No Murmurs Lungs Clear to Auscultation, Normal Air Movement Abdomen Soft, No Tenderness Neurological Normal Speech Extremities No Edema Labs significant for elevated ammonia 113, sodium 145, potassium 4, creatinine 0.7. INR 1.37, CBC: WBC 5.1, hemoglobin 7.5, hematocrit 23.1. Toothache count 85. Imaging not done on this admission. Assessment 1. Worsening hepatic encephalopathypossibly secondary to reduced dosing of lactulose 2. Liver cirrhosis 3. Hypertension 4. Type 2 diabetes 5. Periods Plan * Admit to general medicine * Increase by mouth lactulose to 20 mg 3 times a day and titrate to at least 3 bowel movements daily * Continue by mouth rifaximin 550 mg twice a day * Nothing by mouth for now and aspiration precaution * Monitor vital signs closely * Monitor BEP for electrolytes and CBC closely * Sent blood culture, urine culture, sputum culture and low threshold for antibiotics patient developed fever * Will do abdominal ultrasound in the morning to rule out ascites and if present plan for tap * DVT prophylaxis with Alps * Patient is full code
[2017-05-31 19:08] VITALS: BP 140/60
--- NOTE | 2017-05-31 19:54 | Cons- Gastroenterology ---
General Information and HPI Consulting Request Date of Consult: 05/31/17 Requested By: Chloe Diehl MD Reason for Consult: I was just called by the hospitalist service to assess this cirrhotic male for PSE. Source of Information: patient, family (pt's spoke to ER), old records Exam Limitations: clinical condition (PSE), confusion, some of records at [facility] History of Present Illness: 71 y/o male HTN, HLD, AODM, [place] with cirrhosis, hx GI bleed, hx varices by MRI, hx ascites, chronic anemia (hx Fe def-> transfx prn; baseline HCT mid-upper 20's ) & thrombocytopenia, GERD, past hx colon polyps, gastric polyps, known cholelithiasis with intact GB, MVP, chest pain syndrome, restless leg syndrome, psoriatic arthritis, spinal stenosis, cervical fusion (C-spine sugery x 3, "awaiting L- fusion"), DJD, followed by Dr. Reymundo Francois for primary care, Dr. Jojo Helms at [facility] for GI/liver, & Dr. Ileana Claros for neurology, recently admitted to [facility] 05/25/17 - 05/27/17 for PSE & fatigue, with NH3 96 then. He was D/C to follow up with Dr. Helms as an outpt. He was recently seen in inpt GI consultation at [place] by Dr. Portillo, on 05/25/17. He was previously seen in inpt GI consultation at [place] by Dr. Jovi Sequeira 08/01/15, who had obtained records from Dr. Helms, at that time: 01/2014: EGD/EUS (Dr. Helms)- broad based antral polyps, each 2-3 cm in size. They were biopsied, interpreted as foveolar hyperplasia with ulceration and severe inflammation, negative for malignancy. They were not removed because of risk of bleeding. 05/2015: EGD (Dr. Helms)- large gastric polyps, mild portal hypertensive gastropathy, and no evident esophageal or gastric varices. 05/2015: Colonoscopy (Dr. Helms)- unrevealing. 07/18/15: MRI (Dr. Helms)- nodular liver, no evident hepatoma, small gallstones, portal venous system patency with multiple splenic varices with spontaneous splenorenal shunt, and esophageal varices. Splenomegaly, small amount of ascites 08/01/15: EGD to D2 (Dr. Jovi Sequeira)- Impression: * No active bleeding, or old blood * No evident varices * Shallow GE junction ulceration * Portal hypertensive gastropathy * Antral polyps * Small duodenal telangiectasias The patient claimed he has not had a repeat EGD since 08/01/15. He denied ever having had a PillCam. He claimed he had a liver biopsy by Dr. Helms. 05/25/17: XRY-CHEST XRAY, TWO VIEWS- No acute pulmonary disease. No evidence of pulmonary venous hypertension or pleural effusion. Cervical spine fusion hardware intact. DJD. 05/25/17: US ABDOMEN COMPLETE- 1. Hepatic cirrhosis and splenomegaly 14.1 cm. No ascites or other new finding compared to 02/27/17. No HCC. 2. Cholelithiasis without evidence of acute cholecystitis. No dilated IHD or EHD , with CBD 3 mm. 3. Normal kidneys without hydronephrosis. *The patient presented to the [place] ER 05/31/17 at 2:39 p.m., arriving with his for evaluation of confusion. Visiting nurse came to the house earlier in the day of admission, and advised him to go to the hospital. Upon arrival, he was only O x 1 (person), with BP 123/60, P 75, R 20, T 97.2, O2 sat RA 98%. The patient's stated that since the patient's 05/27/2017 [place] discharge, he was never really 100%. He had been feeling weak and confused which has progressed. The confusion became worse 05/30/17, as he was unable to distinguish a TV remote control from the telephone. The patient was up all night the evening [employer]. *He apparently was compliant with his medications, which included Lactulose 20 g po daily (5 loose BM daily on this), Rifaximin 550 mg po BID, Vitamin D2/Vitamin D3, Vitamin K 5 mg po daily, iron 325 mg po daily, folate 1 mg po daily, Lactobacillus, insulin, Milk thistle, Remeron 15 mg po at night, Protonix 40 mg po daily, Mirapex 0.125 mg po daily, Inderal 10 mg po BID, Zocor 40 mg po daily, Janumet 50/1000mg tab BID, & Lantus insulin 20u sc Q p.m. *He was not on any diuretics. The patient has a history of dizziness and questionable vertigo, followed by neurology. There is a questionable history of ataxia. He has a history of falls , but denied any head trauma or LOC. He ambulates with a quad cane or a walker. He denied having any recent CT of the head. At the time of my GI consultation, he was O 2, not to time ("1985"). He denied any NSAIDs, aspirin, Tylenol, or herbal medications. He denied using any sedative hypnotics. He denied any fevers, chills, CP, SOB, ODEN, symptoms of UTI, or URI. He denied any increased abdominal girth or peripheral edema. He denied any jaundice, dark urine, light stools, or pruritus. His appetite was good. His weight was stable. He denied any heartburn at the moment. He denied any odynophagia, dysphagia, hematemesis, abdominal pain, nausea, vomiting, early satiety, diarrhea (aside from loose stools on Lactulose), constipation, obstipation, tenesmus, rectal bleeding, or melena. FHx positive for colon Ca (M- 89). No FHx inherited liver disease. 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 He denied any EtOH, cigarette smoking, or illicit drugs. He denied any IVDA, tattoos, or viral hepatitis. He has been transfused, as previously noted. He has a living will. His , Anneliese Parker, is his POA. 05/31/17: Admission labs- WBC 5.1, H/H 7.5/23.1, MCV 86.3, RDW 17.1, PLT 85, PT 15.0, INR 1.37, PTT 39, glucose 194, BUN/Cr 13/0.7, GFR > 60, Na 145, K 4.0, HCO3 22, AG 11,Mg 1.7, Ca 8.8, alb 2.8, glob 3.6, TBil 1.0, alk phos 124, AST 45 , ALT 40, *NH3 113, troponin < 0.01. 05/31/17: *Admission MELD: < 10. 05/31/17: EKG- NSR @ 70, nl axis, borderline prolonged QT interval, NSST lat. Apparently, no other imaging studies were obtained from the ER on 05/31/17 Allergies/Medications Allergies: Coded Allergies: No Known Allergies (02/06/17) Home Med List: Cholecalciferol (Vitamin D3) (Vitamin D) 2,000 UNIT TABLET 1 TAB PO DAILY VITAMIN SUPPORT (Reported) Ergocalciferol (Vitamin D2) (Vitamin D2) 50,000 UNIT CAPSULE 1 CAP PO QTHURS BONE STRENGTH (Reported) Ferrous Sulfate (IRON) 325 MG (65 MG IRON) TABLET 1 TAB PO DAILY SUPPLEMENT ( Reported) Folic Acid 1 MG TABLET 1 TAB PO DAILY VITAMIN SUPPORT (Reported) Insulin Glargine,Hum.rec.anlog (Lantus Solostar) 100 UNIT/ML (3 ML) INSULN.PEN 20 UNIT SC QPM DIABETES (Reported) Lactobacillus Acidophilus (Probiotic) 10 BILLION CELL CAPSULE 1 CAP PO DAILY GI (Reported) Lactulose 20 GM/30 ML SOLUTION 20 GM PO DAILY Decrease the amonia Milk Thistle Seed Extract (Milk Thistle) 175 MG CAPSULE 1 CAP PO DAILY SUPPLEMENT (Reported) Mirtazapine (Remeron) 15 MG TAB.RAPDIS 1 TAB PO AT BEDTIME sleep Pantoprazole Sodium 40 MG TABLET.DR 1 TAB PO QAM GI (Reported) Phytonadione (Mephyton) 5 MG TABLET 1 TAB PO DAILY bleeding risk Pramipexole Di-HCl (Mirapex) 0.125 MG TABLET 1 TAB PO QPM RESTLESS LEGS TAKE AROUND 8 PM Propranolol HCl 10 MG TABLET 1 TAB PO BID BP (Reported) Rifaximin (Xifaxan) 550 MG TABLET 1 TAB PO BID GI (Reported) Simvastatin (Zocor*) 40 MG TABLET 1 TAB PO QPM CHOLESTEROL (Reported) Sitagliptin Phos/Metformin HCl (Janumet 50-1,000 MG Tablet) 1 EACH TABLET 1 TAB PO BID diabetes mellitus Current Medications: Current Medications Sig/Krista Start time Last Medication Dose Route Stop Time Status Admin Atorvastatin Calcium 20 MG 1700 06/01 1700 AC PO Cholecalciferol 2,000 IU DAILY 06/01 1000 AC PO Ergocalciferol 50,000 IU QTHURS 06/06 1000 AC PO Ferrous Sulfate 325 MG DAILY 06/01 1000 AC PO Folic Acid 1 MG DAILY 06/01 1000 AC PO Lactobacillus 1 CAP DAILY 06/01 1000 AC Acidophilus PO Lactulose 20 GM TID 05/31 1899 AC PO Morphine Sulfate 2 MG Q4P PRN 05/31 191 AC IV Omeprazole 40 MG DAILY AC 06/01 0700 AC PO Phytonadione 5 MG DAILY 06/01 1000 AC PO Pramipexole 0.125 MG QPM 05/31 2199 AC Dihydrochloride PO Propranolol HCl 10 MG BID 05/31 2199 AC PO Rifaximin 550 MG BID 05/31 2199 AC PO Past History Travel History Traveled to [place] past 21 day No Medical History Blood Transfusion Hx: Yes Neurological: dizziness, restless leg syndrome, vertigo, hx falls EENT: NONE Cardiovascular: hypertension, hyperlipidemia, MITRAL VALVE PROLAPSE Chest pain syndrome Respiratory: NONE Gastrointestinal: GERD, upper GI bleed (08/01/15: EGD- no varices), Colonic Polyp ASCITES, gastric polyps, portal gastropathy, duod telangiectasias Hepatic: cirrhosis, hepatic encephalopathy, FATTY LIVER Renal: NONE Musculoskeletal: chronic back pain, degen joint disease, falls, osteoarthritis, psoariatic arthritis, spinal stenosis Psychiatric: NONE Endocrine: diabetes, vitamin D deficiency Blood Disorders: anemia, coagulopathy, thrombocytopenia (cirrhotic) Cancer(s): NONE 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 , Age 89; Cause: Colon cancer. FATHER (Skin CA of unknown type). , Age 94; Cause: Disseminated malignancy of unknown primary. Relation not specified for: FH: diabetes mellitus Psychosocial History Where Do You Live? Home Who Do You Live With? spouse (Anneliese Parker) Services at Home: Nursing (visiting nurse) Primary Language: Mongolian Smoking Status: Never Smoked ETOH Use: denies use Illicit Drug Use: denies illicit drug use Living Will? yes Power of Wax Ball Knock Out Worker/HCP? yes Name of POA/HCP: -Anneliese Smith [phone] Other Social History: . Lives with /POA, Anneliese Smith. 1 son & 1 dtr- [employer]. No cigarettes, EtOH, or illicit drugs. 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 Uses quad cane and/or walker to ambulate. Functional Ability ADLs Independent: dressing, eating, toileting, bathing. Ambulation: cane (quad cane), walker IADLs Independent: housework, food prep, telephone. Needs Assist: shopping, finances, transportation, medication admin. 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 Denies: chills, diaphoresis, fever, malaise, unexplained weight loss. EENTM: Denies: blurred vision, double vision, visual changes, eye pain, eye drainage, eye tearing, icterus, ear discharge, ear pain, ear redness, hearing changes, nasal congestion, epistaxis, nasal pain, throat pain, throat swelling, mouth pain, tooth pain. Cardiovascular: Denies: chest pain, edema, orthopena, palpitations, peripheral edema, syncope. Respiratory: Denies: cough, hemoptysis, orthopnea, short of breath, sputum production, stridor, wheezing. GI: Denies: abdominal pain, bloating, constipation, diarrhea, distention, bowel incontinence, melena, nausea, bloody stool, changes in stool, vomiting, steatorrhea. Genitourinary: Denies: discharge, dysuria, frequency, hematuria, hesitation, nocturia, pain, urgency. Musculoskeletal: Reports: back pain (chronic), neck pain (chronic; C-spine fusion). Denies: gout , joint pain, joint swelling, muscle pain, muscle stiffness. Skin: Denies: cysts, change in skin color, change in hair/nails, dryness, erythema, jaundice, lesions, lymphangitis, lumps, moles, rash. Neurological/Psychological: Reports: cognitive dysfunction (hx PSE). Denies: anxiety, ataxia, confusion, depressed, dementia, emotional problems, headache, numbness, paresthesia, pre- existing deficit, petit mal seizures, tingling, tremors, tonic-clonic seizures, unable to move lower ext, unable to move upper ext, weakness, other. Hematologic/Endocrine: Denies: bruising, bleeding, polyuria, polydipsia. Immunologic/Allergic: Denies: splenectomy, HIV/AIDS, lymphadenopathy. All Other Systems: Reviewed and Negative Exam & Diagnostic Data Vital Signs and I&O Vital Signs Date Time Temp Pulse Resp B/P B/P Pulse O2 O2 Flow FiO2 Mean Ox Delivery Rate 05/31 1908 98.2 73 18 140/60 97 05/31 1823 98.5 73 18 139/65 99 Room Air 05/31 1656 96.1 72 16 147/64 99 Room Air 05/31 1601 Room Air 05/31 1442 97.2 75 20 123/60 98 Room Air Intake & Output 05/31 1600 05/31 0400 05/30 1600 05/30 0400 05/29 1600 05/29 0400 Intake Total Output Total Balance Patient 188 lb Weight Weight Reported by Patient Measurement Method Physical Exam: Well-developed well-nourished, pleasant elderly male, in no apparent distress. Sclera anicteric. Conjunctiva pink. NCAT. Oropharynx clear. No oral thrush. No apthous ulcers. Sinuses: NT. There is no adenopathy, thyromegaly, or JVD. Carotids 1+ B/L without bruit. No peripheral stigmata of inflammatory bowel disease or chronic liver disease on exam (aside from PSE). No spiders on the anterior chest wall. No gynecomastia. No CVA tenderness. Post C-spine fusion. Lungs: clear to A&P. No wheezing, rales, or rhonchi. Heart exam: regular rate rhythm, S1 and S2, without any murmur, rub, gallop, or click. Abdominal exam: normal bowel sounds, soft belly, slightly obese, nontender, without guarding or rebound. No mass. Liver approximately 14 cm by percussion. Negative Guajardo sign. Borderline palpable spleen tip. No fluid shift. No pulsatile mass. No epigastric bruit. Digital rectal exam 05/31/17: brown stool, trace OB-positive, large palpable internal hemorrhoids, normal sphincter tone, no mass, smooth prostate without nodule, no external hemorrhoids, no fissure, no perianal disease. Extremities: without C, C, or E. No palpable cords. Moderate DJD. No psoriatic changes in the nail beds.No rash. No palmar erythema. No Dupuytren's contractures. Distal pulses 2+ bilaterally. DTRs 2+ bilaterally. Right handed. CN II-XII intact. Somewhat more alert and oriented x 2 (not to time- "1986"). Motor 5/5 B/L. Gait not assessed. A detailed exam for peripheral neuropathy was deferred. No tremor. No asterixis. Results Pertinent Lab Results: Laboratory Tests 05/31 1535 Chemistry Sodium (137 - 145 mmol/L) 145 Potassium (3.5 - 5.1 mmol/L) 4.0 Chloride (98 - 107 mmol/L) 113 H Carbon Dioxide (22 - 30 mmol/L) 22 Anion Gap (5 - 16) 11 BUN (9 - 20 mg/dL) 13 Creatinine (0.7 - 1.2 mg/dL) 0.7 Estimated GFR (>60 ml/min) > 60 BUN/Creatinine Ratio (7 - 25 %) 18.6 Glucose (65 - 99 mg/dL) 194 H Calcium (8.4 - 10.2 mg/dL) 8.8 Magnesium (1.6 - 2.3 mg/dL) 1.7 Total Bilirubin (0.2 - 1.3 mg/dL) 1.0 AST (17 - 59 U/L) 45 ALT (21 - 72 U/L) 40 Alkaline Phosphatase (< 127 U/L) 124 Ammonia (9 - 30 umol/L) 113 H Troponin I (<0.11 ng/ml) < 0.01 Total Protein (6.3 - 8.2 g/dL) 6.4 Albumin (3.5 - 5.0 g/dL) 2.8 L Globulin (1.9 - 4.2 gm/dL) 3.6 Albumin/Globulin Ratio (1.1 - 2.2 %) 0.8 L Coagulation PT (9.4 - 12.5 SEC) 15.0 H INR (0.90 - 1.17) 1.37 H APTT (25 - 37 SEC) 39 H Hematology CBC w Diff NO MAN DIFF REQ WBC (4.8 - 10.8 /CUMM) 5.1 RBC (4.70 - 6.10 /CUMM) 2.68 L Hgb (14.0 - 18.0 G/DL) 7.5 L Hct (42 - 52 %) 23.1 L MCV (80.0 - 94.0 FL) 86.3 MCH (27.0 - 31.0 PG) 27.8 MCHC (33.0 - 37.0 G/DL) 32.3 L RDW (11.5 - 14.5 %) 17.1 H Plt Count (130 - 400 /CUMM) 85 L MPV (7.4 - 10.4 FL) 7.7 Gran % (42.2 - 75.2 %) 64.2 Lymphocytes % (20.5 - 51.1 %) 18.6 L Monocytes % (1.7 - 9.3 %) 12.1 H Eosinophils % (0 - 5 %) 4.6 Basophils % (0.0 - 2.0 %) 0.5 Absolute Granulocytes (1.4 - 6.5 /CUMM) 3.2 Absolute Lymphocytes (1.2 - 3.4 /CUMM) 0.9 L Absolute Monocytes (0.10 - 0.60 /CUMM) 0.6 Absolute Eosinophils (0.0 - 0.7 /CUMM) 0.2 Absolute Basophils (0.0 - 0.2 /CUMM) 0 Imaging/Other Studies: 05/31/17: EKG- NSR @ 70, nl axis, borderline prolonged QT interval, NSST lat. Assessment/Plan Assessment/Recommendations: 71 y/o male HTN, HLD, AODM, [place] with cirrhosis, hx GI bleed, hx varices by MRI, hx ascites, chronic anemia (hx Fe def-> transfx prn; baseline HCT mid-upper 20's ) & thrombocytopenia, GERD, past hx colon polyps, gastric polyps, known cholelithiasis with intact GB, MVP, chest pain syndrome, restless leg syndrome, psoriatic arthritis, spinal stenosis, cervical fusion (C-spine sugery x 3, "awaiting L- fusion"), DJD, followed by Dr. Reymundo Francois for primary care, Dr. Jojo Helms at [facility] for GI/liver, & Dr. Ileana Claros for neurology, recently admitted to [facility] 05/25/17 - 05/27/17 for PSE & fatigue, with NH3 96 then. He was D/C to follow up with Dr. Helms as an outpt. He was recently seen in inpt GI consultation at [place] by Dr. Portillo, on 05/25/17. He was previously seen in inpt GI consultation at [place] by Dr. Jovi Sequeira 08/01/15, who had obtained records from Dr. Helms, at that time: 01/2014: EGD/EUS (Dr. Helms)- broad based antral polyps, each 2-3 cm in size. They were biopsied, interpreted as foveolar hyperplasia with ulceration and severe inflammation, negative for malignancy. They were not removed because of risk of bleeding. 05/2015: EGD (Dr. Helms)- large gastric polyps, mild portal hypertensive gastropathy, and no evident esophageal or gastric varices. 05/2015: Colonoscopy (Dr. Helms)- unrevealing. 07/18/15: MRI (Dr. Helms)- nodular liver, no evident hepatoma, small gallstones, portal venous system patency with multiple splenic varices with spontaneous splenorenal shunt, and esophageal varices. Splenomegaly, small amount of ascites 08/01/15: EGD to D2 (Dr. Jovi Sequeira)- Impression: * No active bleeding, or old blood * No evident varices * Shallow GE junction ulceration * Portal hypertensive gastropathy * Antral polyps * Small duodenal telangiectasias The patient claimed he has not had a repeat EGD since 08/01/15. He denied ever having had a PillCam. He claimed he had a liver biopsy by Dr. Helms. 05/25/17: XRY-CHEST XRAY, TWO VIEWS- No acute pulmonary disease. No evidence of pulmonary venous hypertension or pleural effusion. Cervical spine fusion hardware intact. DJD. 05/25/17: US ABDOMEN COMPLETE- 1. Hepatic cirrhosis and splenomegaly 14.1 cm. No ascites or other new finding compared to 02/27/17. No HCC. 2. Cholelithiasis without evidence of acute cholecystitis. No dilated IHD or EHD , with CBD 3 mm. 3. Normal kidneys without hydronephrosis. *The patient presented to the [place] ER 05/31/17 at 2:39 p.m., arriving with his for evaluation of confusion. Visiting nurse came to the house earlier in the day of admission, and advised him to go to the hospital. Upon arrival, he was only O x 1 (person), with BP 123/60, P 75, R 20, T 97.2, O2 sat RA 98%. The patient's stated that since the patient's 05/27/2017 [place] discharge, he was never really 100%. He had been feeling weak and confused which has progressed. The confusion became worse 05/30/17, as he was unable to distinguish a TV remote control from the telephone. The patient was up all night the evening [employer]. *He apparently was compliant with his medications, which included Lactulose 20 g po daily (5 loose BM daily on this), Rifaximin 550 mg po BID, Vitamin D2/Vitamin D3, Vitamin K 5 mg po daily, iron 325 mg po daily, folate 1 mg po daily, Lactobacillus, insulin, Milk thistle, Remeron 15 mg po at night, Protonix 40 mg po daily, Mirapex 0.125 mg po daily, Inderal 10 mg po BID, Zocor 40 mg po daily, Janumet 50/1000mg tab BID, & Lantus insulin 20u sc Q p.m. *He was not on any diuretics. The patient has a history of dizziness and questionable vertigo, followed by neurology. There is a questionable history of ataxia. He has a history of falls , but denied any head trauma or LOC. He ambulates with a quad cane or a walker. He denied having any recent CT of the head. At the time of my GI consultation, he was O 2, not to time ("1985"). He denied any NSAIDs, aspirin, Tylenol, or herbal medications. He denied using any sedative hypnotics. He denied any fevers, chills, CP, SOB, ODEN, symptoms of UTI, or URI. He denied any increased abdominal girth or peripheral edema. He denied any jaundice, dark urine, light stools, or pruritus. His appetite was good. His weight was stable. He denied any heartburn at the moment. He denied any odynophagia, dysphagia, hematemesis, abdominal pain, nausea, vomiting, early satiety, diarrhea (aside from loose stools on Lactulose), constipation, obstipation, tenesmus, rectal bleeding, or melena. FHx positive for colon Ca (M- 89). No FHx inherited liver disease. 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 He denied any EtOH, cigarette smoking, or illicit drugs. He denied any IVDA, tattoos, or viral hepatitis. He has been transfused, as previously noted. He has a living will. His , Anneliese Parker, is his POA. 05/31/17: Admission labs- WBC 5.1, H/H 7.5/23.1, MCV 86.3, RDW 17.1, PLT 85, PT 15.0, INR 1.37, PTT 39, glucose 194, BUN/Cr 13/0.7, GFR > 60, Na 145, K 4.0, HCO3 22, AG 11,Mg 1.7, Ca 8.8, alb 2.8, glob 3.6, TBil 1.0, alk phos 124, AST 45 , ALT 40, *NH3 113, troponin < 0.01. 05/31/17: *Admission MELD: < 10. 05/31/17: EKG- NSR @ 70, nl axis, borderline prolonged QT interval, NSST lat. Apparently, no other imaging studies were obtained from the ER on 05/31/17. *No definite precipitants for PSE were noted on admission, aside from brown stool, trace-OB positive (in the setting of internal hemorrhoids). Having stated that, there was no overt hematemesis to suggest active upper GI bleeding as a precipitant for this (swallowed blood acts as a protein substrate, raising NH3 levels). The patient's electrolytes were stable. He was not on any diuretics to precipitate dehydration. There was no hypokalemia. He had no leukocytosis, nor fever. He had no signs of sepsis. He had no symptoms of UTI or URI. There was no definite fluid shift on exam to suggest SBP. Having stated that, no U/A nor imaging studies, aside from EKG, were obtained on admission. He was not on any oupt sedative hypnotics. Apparently, he was compliant with his outpatient medications, which included Rifaximin and Lactulose, although he was only taking the latter at a dose of 20 g daily. There were no definite focal neurologic deficits on exam. The history of falls was noted, although the patient denied any head trauma. The patient may have a separate entity of vertigo/dizziness, which may be distinct from his PSE. *SUGGEST- *Panculture (BC x 2, U/A, C&S, sputum). *Complete abdominal ultrasound (r/o tappable ascites, r/o HCC). *CXR. *CT head. *Obtain most recent GI records from Dr. Jojo Helms ([facility]). *Increase Lactulose tro 20g TID. *Continue Rifaximin 550 mg po BID. Once sono is done, 2g Na+, heart healthy, DM diet, when more alert, with aspiration precautions. Keep HOB elevated > 60 with feeds. *Serial CBC, NH3, lytes, BUN/Cr , GFR, LFTs. *Check full Hep A, B, & C serologies & AFP. *Increase Fe to 325 mg po TID. *Check Fe, TIBC, ferritin, B12, RBC folate, MMA, TFT with TSH, VDRL. *Continue Inderal 10 mg po BID, Omeprazole 40 mg daily, folate, & Vit K. Other meds as per medical team. DVT prophylaxis. Physical tx consult. *Try to avoid sedative hypnotics & analgesics (? morphine rxd). *Further GI recommendations to follow, depending on clinical course. Problem List: 1. Cirrhosis 2. KINGSTON (nonalcoholic steatohepatitis) 3. Hepatic encephalopathy 4. History of ascites 5. Portal hypertensive gastropathy 6. Iron deficiency anemia 7. Thrombocytopenia 8. Coagulopathy 9. Occult blood positive stool Copies To: Fazal PRADO,Disha Helms MD,Jojo A.; Priscila PRADO,Reymundo Morrison; Harlan PRADO,Ileana Lorenzo. Consult Acknowledgment - Thank you for your consult request.
[2017-05-31 21:45] VITALS: BP 120/58
--- NOTE | 2017-06-01 05:11 | PN- Housestaff ---
Subjective Follow-up For: Hepatic Encephalopathy Subjective: Patient was seen and examined at bedside. Review of Systems Constitutional: Reports: no symptoms. Objective Last 24 Hrs of Vital Signs/I&O Vital Signs Date Time Temp Pulse Resp B/P B/P Pulse O2 O2 Flow FiO2 Mean Ox Delivery Rate 05/31 2146 70 122/62 05/31 2144 98.1 71 20 120/58 98 05/31 1908 98.2 73 18 140/60 97 05/31 1823 98.5 73 18 139/65 99 Room Air 05/31 1656 96.1 72 16 147/64 99 Room Air 05/31 1601 Room Air 05/31 1442 97.2 75 20 123/60 98 Room Air Intake & Output 06/01 0800 06/01 0000 05/31 1600 Intake Total 480 Output Total 250 Balance 230 Intake, Oral 480 Output, Urine 250 Patient 185 lb 188 lb Weight Weight Bed scale Reported by Patient Measurement Method Physical Exam General Appearance: Alert, Oriented X3, Cooperative, No Acute Distress Skin: No Rashes, No Breakdown Skin Temp/Moisture Exam: Warm/Dry Sepsis Skin Exam (color): Normal for Ethnicity HEENT: Atraumatic Cardiovascular: Normal S1, Normal S2, No Murmurs Lungs: Clear to Auscultation, Normal Air Movement Abdomen: Soft, No Tenderness Neurological: Normal Speech Extremities: No Edema Assessment/Plan Assessment: 71-year-old male with past medical history significant for hypertension, hyperlipidemia, [place], GI bleed, ascites, type 2 diabetes mellitus, gastroesophageal reflux disease, mitral valve prolapse, RLS, cervical fusion surgery and spinal stenosis, hepatic encephalopathy on lactulose, anemia, thrombocytopenia was brought in to the ED for worsening confusion and fatigue. Assessment: 1. Encephalopathy likely worsening of hepatic encephalopathy 2. Elevated ammonia 3. History of hypertension, hyperlipidemia 4. Chronic Thrombocytopenia Plan: * Continue Lactulose 20mg TID and Rifaximin 550mg BID. * Ferrous sulphate increased to 325mg TID. * GI recs appreciated * HOB to be elevated. * Abdominal U/S for evaluation of ascites today - pending * follow up UA (pending) and UC * Follow up blood cultures * follow up C&S * Will obtain records from Dr Jojo Helsm ([facility]) on Saturday. * Hepatitis panel - pending * Fe, TIBC, ferritin, B12, RBC folate, MMA, TFT with TSH - pending * Diet: heart healthy and diabetic. To be started after patient has U/S. * DVT Prophylaxis: ALPS * Code: Full Code Problem List: 1. History of ascites Pain Ratin Pain Location: none Pain Goal: Remain pain free Pain Plan: none Tomorrow's Labs & Rationales: CBC, BEP, LFTs, NH3
[2017-06-01 06:00] VITALS: BP 132/62
--- NOTE | 2017-06-01 08:32 | CT SCAN REPORT ---
EXAMINATION: CT HEAD WITHOUT CONTRAST CLINICAL INFORMATION: Hepatic encephalopathy. Assess for intracranial lesion. COMPARISON: Previous head CT July 2015 TECHNIQUE: Contiguous axial imaging was performed from the skull base to vertex without intravenous administration of contrast. DLP: 616 mGy-cm FINDINGS: There is no evidence of an extra-axial collection. There is no evidence of intra or extra-axial hemorrhage. The ventricles and extra-axial CSF spaces are slightly prominent suggestive of mild generalized atrophy. There is nonspecific periventricular white matter disease. No mass, mass effect or infarct is seen. Review at bone windows is normal. Visualized mastoid air cells, paranasal sinuses and middle ears are clear. IMPRESSION: Mild generalized atrophy and nonspecific periventricular white matter disease. No intracranial lesion identified.
[2017-06-01 08:49] LABS: PT 14.9 SEC (9.4-12.5)
[2017-06-01 08:57] LABS: ABSOLUTE EOSINOPHIL COUNT 0.2 /CUMM (0.0-0.7); ABSOLUTE LYMPH COUNT 0.8 /CUMM (1.2-3.4); ABSOLUTE MONOCYTE COUNT 0.5 /CUMM (0.10-0.60); WHITE BLOOD CELL COUNT 4.2 /CUMM (4.8-10.8)
--- NOTE | 2017-06-01 09:00 | ULTRASOUND REPORT ---
EXAMINATION: US ABDOMEN LIMITED CLINICAL INFORMATION: Cirrhosis. Check for ascites.. COMPARISON: Previous ultrasound 05/25/2017 TECHNIQUE: Limited 4 quadrant abdominal ultrasound FINDINGS: No ascites is seen. IMPRESSION: Limited 4 quadrant abdominal ultrasound demonstrates no ascites.
--- NOTE | 2017-06-01 09:01 | RADIOLOGY REPORT ---
EXAMINATION: XR PORTABLE CHEST CLINICAL INFORMATION: Encephalopathy, confusion and jaundice COMPARISON: Previous chest x-ray 05/25/2017 TECHNIQUE: Portable frontal view of the chest was obtained. FINDINGS: The cardiac and mediastinal contours are stable. The lungs are clear. There is no pleural effusion or pneumothorax. There is curvature of the thoracic spine to the right and degenerative change. There is degenerative change at the shoulder joints. There is evidence of previous surgery to the visualized lower cervical spine. IMPRESSION: No evidence for acute disease in the chest.
[2017-06-01 09:44] LABS: ABSOLUTE BASOPHIL COUNT 0.1 /CUMM (0.0-0.2); ABSOLUTE GRANULOCYTE CT 2.6 /CUMM (1.4-6.5); BASOPHIL % 1.3 % (0.0-2.0); EOSINOPHIL % 4.4 % (0-5); GRANULOCYTE % 63.2 % (42.2-75.2); HEMATOCRIT 22.4 % (42-52); MEAN CORPUSCULAR HGB 27.6 PG (27.0-31.0); MEAN CORPUSCULAR HGB CONC 31.7 G/DL (33.0-37.0); MEAN CORPUSCULAR VOLUME 86.9 FL (80.0-94.0); PLATELET COUNT 83 /CUMM (130-400); RBC DISTRIBUTION WIDTH 17.9 % (11.5-14.5); RED BLOOD CELL CT 2.58 /CUMM (4.70-6.10)
--- NOTE | 2017-06-01 14:12 | PN- Att Addend ---
Attending Addendum Attending Brief Note Patient seen and examined. Plan of care discussed with the medical team and the patient. Available lab work and radiology test reports were reviewed. Patient now awake and alert and oriented. His family is at bedside. Patient denies any double pain any confusion chest pain nausea vomiting or diarrhea. He is currently nothing by mouth. Exam: General: Patient awake alert oriented without any distress; no asterixis noted CVS: S1 plus S2 without any murmur or gallops Chest: Few scattered crepitation without any wheeze. There is no respiratory distress. Abdomen: Soft non-tender, bowel sound present, no guarding or rebound [employer]AURANT HOST/HOSTESS: Awake alert oriented without any focal neuro deficit and follows commands appropriately Extremities: No edema; no clubbing or cyanosis noted Assessment 1. Encephalopathy likely worsening of hepatic encephalopathy 2. Elevated ammonia 3. History of hypertension, hyperlipidemia 4. Chronic Thrombocytopenia 5. Chronic anemia past medical history significant for hypertension, hyperlipidemia, [place], GI bleed, ascites, type 2 diabetes mellitus,gastroesophageal reflux disease, mitral valve prolapse Plan * Okay to feed patient * Continue lactulose; can reduce dose of patient does diarrhea * Recheck CBC Current Medications Sig/Krista Start time Last Medication Dose Route Stop Time Status Admin Atorvastatin Calcium 20 MG 1700 06/01 1700 AC PO Cholecalciferol 2,000 IU DAILY 06/01 1000 AC 06/01 PO 1022 Ergocalciferol 50,000 IU QTHURS 06/06 1000 AC PO Ferrous Sulfate 325 MG DAILY 06/01 1000 DC PO Ferrous Sulfate 325 MG TID 06/01 1000 AC 06/01 PO 1022 Folic Acid 1 MG DAILY 06/01 1000 AC 06/01 PO 1022 Lactobacillus 1 CAP DAILY 06/01 1000 AC 06/01 Acidophilus PO 1022 Lactulose 20 GM TID 06/01 1000 AC 06/01 PO 1024 Lactulose 20 GM TID 05/31 1900 DC 06/01 PO 0243 Morphine Sulfate 2 MG Q4P PRN 05/31 1915 DC IV Omeprazole 40 MG DAILY AC 06/01 0700 AC 06/01 PO 0533 Phytonadione 5 MG DAILY 06/01 1000 AC 06/01 PO 1022 Pramipexole 0.125 MG QPM 05/31 2199 AC 05/31 Dihydrochloride PO 2147 Propranolol HCl 10 MG BID 05/310 AC 06/01 PO 1023 Rifaximin 550 MG BID 05/31 2199 AC 06/01 PO 1022 Laboratory Tests 06/01/17 0732: Urine Color YEL, Urine Clarity CLEAR, Urine pH 5.5, Ur Specific [place] >= 1.030 , Urine Protein NEG, Urine Ketones TRACE H, Urine Nitrite NEG, Urine Bilirubin NEG, Urine Urobilinogen 0.2, Ur Leukocyte Esterase NEG, Ur Microscopic EXAM NOT REQUIRED, Urine Hemoglobin NEG, Urine Glucose NEG 06/01/17 0730: Alpha Fetoprotein Pending, Methylmalonic Acid Pending, RBC Folate Pending, RPR Titer/FTA Pending 06/01/17 0730: Anion Gap 11, Estimated GFR > 60, BUN/Creatinine Ratio 17.1, Iron 32 L, TIBC 386, Ferritin 11.9 L, Total Bilirubin 1.1, Direct Bilirubin 0.5 H, AST 43, ALT 43, Alkaline Phosphatase 118, Total Protein 6.3, Albumin 2.6 L, Vitamin B12 857 , TSH 3.070, Free T4 1.22, PT 14.9 H, INR 1.36 H, CBC w Diff NO MAN DIFF REQ, RBC 2.58 L, MCV 86.9, MCH 27.6, MCHC 31.7 L, RDW 17.9 H, MPV 8.0, Gran % 63.2 , Lymphocytes % 18.5 L, Monocytes % 12.6 H, Eosinophils % 4.4, Basophils % 1.3 , Absolute Granulocytes 2.6, Absolute Lymphocytes 0.8 L, Absolute Monocytes 0.5 , Absolute Eosinophils 0.2, Absolute Basophils 0.1, Hepatitis A IgM Ab NONREACTIVE, Hep Bs Antigen NONREACTIVE, Hep B Core IgM Ab Conf NONREACTIVE, Hepatitis C Antibody NONREACTIVE 05/31/17 1535: Anion Gap 11, Estimated GFR > 60, BUN/Creatinine Ratio 18.6, Glucose 194 H, Calcium 8.8, Magnesium 1.7, Total Bilirubin 1.0, AST 45, ALT 40, Alkaline Phosphatase 124, Ammonia 113 H, Troponin I < 0.01, Total Protein 6.4, Albumin 2.8 L, Globulin 3.6, Albumin/Globulin Ratio 0.8 L, PT 15.0 H, INR 1.37 H, APTT 39 H, CBC w Diff NO MAN DIFF REQ, RBC 2.68 L, MCV 86.3, MCH 27.8, MCHC 32.3 L, RDW 17.1 H, MPV 7.7, Gran % 64.2, Lymphocytes % 18.6 L, Monocytes % 12.1 H, Eosinophils % 4.6, Basophils % 0.5, Absolute Granulocytes 3.2, Absolute Lymphocytes 0.9 L, Absolute Monocytes 0.6, Absolute Eosinophils 0.2, Absolute Basophils 0 Microbiology 06/01 0745 BLOOD: Blood Culture - RECD 06/01 729 BLOOD: Blood Culture - RECD 06/01 599 URINE ROUT: Urine Culture - RECD 06/01 599 LOWER RESP: Respiratory Culture - COLB 06/01 599 LOWER RESP: Gram Stain - COLB Vital Signs Date Time Temp Pulse Resp B/P B/P Pulse O2 O2 Flow FiO2 Mean Ox Delivery Rate 06/01 1023 132/62 06/01 0600 98.3 66 20 132/62 97 Room Air 05/31 2147 70 122/62 05/31 2145 98.1 71 20 120/58 98 05/31 1908 98.2 73 18 140/60 97 05/31 1823 98.5 73 18 139/65 99 Room Air 05/31 1656 96.1 72 16 147/64 99 Room Air 05/31 1601 Room Air 05/31 1442 97.2 75 20 123/60 98 Room Air Intake & Output 06/01 1600 06/01 0800 06/01 0000 Intake Total 900 60 480 Output Total 250 Balance 900 60 230 Intake, IV 0 Intake, Oral 900 60 480 Number 0 0 Bowel Movements Output, Urine 250 Patient 185 lb Weight Weight Bed scale Measurement Method
[2017-06-01 14:13] VITALS: BP 130/62
--- NOTE | 2017-06-01 15:04 | PN- Gastroenterology ---
Assessment/Plan GI Assessment/Recommendations: 71 y/o male HTN, HLD, AODM, KINGSTON with cirrhosis, hx GI bleed, hx varices by MRI, hx ascites, chronic anemia (hx Fe def-> transfx prn; baseline HCT mid-upper 20's ) & thrombocytopenia, GERD, past hx colon polyps, gastric polyps, known cholelithiasis with intact GB, MVP, chest pain syndrome, restless leg syndrome, psoriatic arthritis, spinal stenosis, cervical fusion (C-spine sugery x 3, "awaiting L- fusion"), DJD, followed by Dr. Reymundo Francois for primary care, Dr. Jojo Helms at [facility] for GI/liver, & Dr. Ileana Claros for neurology, recently admitted to [facility] 05/25/17 - 05/27/17 for PSE & fatigue, with NH3 96 then. He was D/C to follow up with Dr. Helms as an outpt. He was recently seen in inpt GI consultation at [place] by Dr. Portillo, on 05/25/17. He was previously seen in inpt GI consultation at [facility] by Dr. Jovi Sequeira 08/01/15, who had obtained records from Dr. Helms, at that time: 01/2014: EGD/EUS (Dr. Helms)- broad based antral polyps, each 2-3 cm in size. They were biopsied, interpreted as foveolar hyperplasia with ulceration and severe inflammation, negative for malignancy. They were not removed because of risk of bleeding. 05/2015: EGD (Dr. Helms)- large gastric polyps, mild portal hypertensive gastropathy, and no evident esophageal or gastric varices. 05/2015: Colonoscopy (Dr. Helms)- unrevealing. 07/18/15: MRI (Dr. Helms)- nodular liver, no evident hepatoma, small gallstones, portal venous system patency with multiple splenic varices with spontaneous splenorenal shunt, and esophageal varices. Splenomegaly, small amount of ascites 08/01/15: EGD to D2 (Dr. Jovi Sequeira)- Impression: * No active bleeding, or old blood * No evident varices * Shallow GE junction ulceration * Portal hypertensive gastropathy * Antral polyps * Small duodenal telangiectasias The patient claimed he has not had a repeat EGD since 08/01/15. He denied ever having had a PillCam. He claimed he had a liver biopsy by Dr. Helms. 05/25/17: XRY-CHEST XRAY, TWO VIEWS- No acute pulmonary disease. No evidence of pulmonary venous hypertension or pleural effusion. Cervical spine fusion hardware intact. DJD. 05/25/17: US ABDOMEN COMPLETE- 1. Hepatic cirrhosis and splenomegaly 14.1 cm. No ascites or other new finding compared to 02/27/17. No HCC. 2. Cholelithiasis without evidence of acute cholecystitis. No dilated IHD or EHD , with CBD 3 mm. 3. Normal kidneys without hydronephrosis. *The patient presented to the [facility] ER 05/31/17 at 2:39 p.m., arriving with his for evaluation of confusion. Visiting nurse came to the house earlier in the day of admission, and advised him to go to the hospital. Upon arrival, he was only O x 1 (person), with BP 123/60, P 75, R 20, T 97.2, O2 sat RA 98%. The patient's stated that since the patient's 05/27/2017 [facility] discharge, he was never really 100%. He had been feeling weak and confused which has progressed. The confusion became worse 05/30/17, as he was unable to distinguish a TV remote control from the telephone. 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 *He apparently was compliant with his medications, which included Lactulose 20 g po daily (5 loose BM daily on this), Rifaximin 550 mg po BID, Vitamin D2/Vitamin D3, Vitamin K 5 mg po daily, iron 325 mg po daily, folate 1 mg po daily, Lactobacillus, insulin, Milk thistle, Remeron 15 mg po at night, Protonix 40 mg po daily, Mirapex 0.125 mg po daily, Inderal 10 mg po BID, Zocor 40 mg po daily, Janumet 50/1000mg tab BID, & Lantus insulin 20u sc Q p.m. *He was not on any diuretics. The patient has a history of dizziness and questionable vertigo, followed by neurology. There is a questionable history of ataxia. He has a history of falls , but denied any head trauma or LOC. He ambulates with a quad cane or a walker. He denied having any recent CT of the head. At the time of my GI consultation, he was O 2, not to time ("1985"). He denied any NSAIDs, aspirin, Tylenol, or herbal medications. He denied using any sedative hypnotics. He denied any fevers, chills, CP, SOB, ODEN, symptoms of UTI, or URI. He denied any increased abdominal girth or peripheral edema. He denied any jaundice, dark urine, light stools, or pruritus. His appetite was good. His weight was stable. He denied any heartburn at the moment. He denied any odynophagia, dysphagia, hematemesis, abdominal pain, nausea, vomiting, early satiety, diarrhea (aside from loose stools on Lactulose), constipation, obstipation, tenesmus, rectal bleeding, or melena. FHx positive for colon Ca (M- 89). No FHx inherited liver disease. 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 He denied any EtOH, cigarette smoking, or illicit drugs. He denied any IVDA, tattoos, or viral hepatitis. He has been transfused, as previously noted. He has a living will. His , Anneliese Parker, is his POA. 05/31/17: Admission labs- WBC 5.1, H/H 7.5/23.1, MCV 86.3, RDW 17.1, PLT 85, PT 15.0, INR 1.37, PTT 39, glucose 194, BUN/Cr 13/0.7, GFR > 60, Na 145, K 4.0, HCO3 22, AG 11,Mg 1.7, Ca 8.8, alb 2.8, glob 3.6, TBil 1.0, alk phos 124, AST 45 , ALT 40, *NH3 113, troponin < 0.01. 05/31/17: *Admission MELD: < 10. 05/31/17: EKG- NSR @ 70, nl axis, borderline prolonged QT interval, NSST lat. Apparently, no other imaging studies were obtained from the ER on 05/31/17. *No definite precipitants for PSE were noted on admission, aside from brown stool, trace-OB positive (in the setting of internal hemorrhoids). Having stated that, there was no overt hematemesis to suggest active upper GI bleeding as a precipitant for this (swallowed blood acts as a protein substrate, raising NH3 levels). The patient's electrolytes were stable. He was not on any diuretics to precipitate dehydration. There was no hypokalemia. He had no leukocytosis, nor fever. He had no signs of sepsis. He had no symptoms of UTI or URI. There was no definite fluid shift on exam to suggest SBP. Having stated that, no U/A nor imaging studies, aside from EKG, were obtained on admission. He was not on any oupt sedative hypnotics. Apparently, he was compliant with his outpatient medications, which included Rifaximin and Lactulose, although he was only taking the latter at a dose of 20 g daily. There were no definite focal neurologic deficits on exam. The history of falls was noted, although the patient denied any head trauma. The patient may have a separate entity of vertigo/dizziness, which may be distinct from his PSE. 06/01/17: CT HEAD WITHOUT CONTRAST- Mild generalized atrophy and nonspecific periventricular white matter disease. No intracranial lesion identified. 06/01/17: US-COMPLETE ABDOMEN COMPARISON: Previous ultrasound 05/25/17. IMPRESSION: Limited 4 quadrant abdominal ultrasound demonstrates no ascites. 06/01/17: XRY-PORTABLE CHEST XRAY- No evidence for acute disease in the chest. DJD. Post C-spine surgery. 06/01/17: WBC 4.2, H/H 7.1/22.4, MCV 86.9, RDW 17.9, PLT 83, PT 14.9, INR 1.36, BUN/Cr 12/0.7, GFR > 60, *Na 147, K 3.5, HCO3 22, AG 11, albumin 2.6, globulin 3.7, TBil 1.1, DBil 0.5, alk phos 118, AST 43, ALT 43 (*NH3- not repeated), *Hep A Ab, Hep Bs Ag, Hep B core Ab, Hep C Ab- all neg; nl FT4 1.22, nl TSH 3.07, Fe 32, TIBC 386, *Fe sat 8.3%,*ferritin 11.9, B12 857 06/01/17: VDRL, MMA, RBC folate, AFP- *all pending. 06/01/17: U/A- clear yellow, > 1.030, 5.5, micro- neg xc tr ketone, neg nitrite, neg esterase. *As of 06/01/17, the patient remained hemodynamically stable and afebrile. BP 130/62, P 67, R 18, T 98.2, O2 sat RA 98%. Numerous imaging studies on 06/01/17 essentially negative, including complete abdominal ultrasound- without ascites, CXR- clear, CT head w/o cont- mild generalized atrophy & nonspecific periventricular white matter disease, without any infarct, bleeding, or lesion. Multiple cultures- pending. Iron was increased to TID, along with increased Lactulose 20 g TID, Rifaximin 550 mg BID, Omeprazole 40 mg daily, Inderal 10 mg po BID, Vit K, & folate, etc. the patient was much more alert. He was oriented walker at physical therapy. He was started on a heart healthy diet, which he tolerated. *The patient understands that he needs higher dose Lactulose for his PSE & accepts the side effects of diarrhea. *The patient now told me he had an EGD/colonoscopy, and a recent PillCam per Dr. Helms in [place], the latter within the past 6 months, which reportedly did not show any active bleeding. *SUGGEST- Follow-up cultures. *Obtain most recent GI records from Dr. Jojo Helms ([facility] ). *The patient's iron deficiency anemia is chronic, and he has had an extensive workup by Dr. Helms for this, reportedly including a PillCam, within the past 6 months. *Continue Lactulose 20g TID as tolerated. *Continue Rifaximin 550 mg po BID. 2g Na+, heart healthy, DM diet with aspiration precautions. Keep HOB elevated > 60 with feeds. *Serial CBC, NH3, lytes, BUN/Cr, GFR, LFTs. *Await : VDRL, MMA, RBC folate, & AFP. May need to increase free H2O with mildly elevated serum Na+. *Continue Fe 325 mg po TID. *Continue Inderal 10 mg po BID, Omeprazole 40 mg daily, folate, & Vit K. Other meds as per medical team. DVT prophylaxis. Continue to mobilize patient with physical tx. *Try to avoid sedative hypnotics & analgesics. *As the patient's mental status is now improved , consideration for D/C tomorrow, with outpt GI f/u with Dr. Helms. The above was discussed with the medical house staff. Problem List: 1. Cirrhosis 2. KINGSTON (nonalcoholic steatohepatitis) 3. Hepatic encephalopathy 4. History of ascites 5. Portal hypertensive gastropathy 6. Iron deficiency anemia 7. Thrombocytopenia 8. Coagulopathy 9. Occult blood positive stool Subjective Subjective: 06/01/17: CT HEAD WITHOUT CONTRAST- Mild generalized atrophy and nonspecific periventricular white matter disease. No intracranial lesion identified. 06/01/17: US-COMPLETE ABDOMEN COMPARISON: Previous ultrasound 05/25/17. IMPRESSION: Limited 4 quadrant abdominal ultrasound demonstrates no ascites. 06/01/17: XRY-PORTABLE CHEST XRAY- No evidence for acute disease in the chest. DJD. Post C-spine surgery. 06/01/17: WBC 4.2, H/H 7.1/22.4, MCV 86.9, RDW 17.9, PLT 83, PT 14.9, INR 1.36, BUN/Cr 12/0.7, GFR > 60, *Na 147, K 3.5, HCO3 22, AG 11, albumin 2.6, globulin 3.7, TBil 1.1, DBil 0.5, alk phos 118, AST 43, ALT 43 (*NH3- not repeated), *Hep A Ab, Hep Bs Ag, Hep B core Ab, Hep C Ab- all neg; nl FT4 1.22, nl TSH 3.07, Fe 32, TIBC 386, *Fe sat 8.3%,*ferritin 11.9, B12 857 06/01/17: VDRL, MMA, RBC folate, AFP- *all pending. 06/01/17: U/A- clear yellow, > 1.030, 5.5, micro- neg xc tr ketone, neg nitrite, neg esterase. *As of 06/01/17, the patient remained hemodynamically stable and afebrile. BP 130/62, P 67, R 18, T 98.2, O2 sat RA 98%. Numerous imaging studies on 06/01/17 essentially negative, including complete abdominal ultrasound- without ascites, CXR- clear, CT head w/o cont- mild generalized atrophy & nonspecific periventricular white matter disease, without any infarct, bleeding, or lesion. Multiple cultures- pending. Iron was increased to TID, along with increased Lactulose 20 g TID, Rifaximin 550 mg BID, Omeprazole 40 mg daily, Inderal 10 mg po BID, Vit K, & folate, etc. the patient was much more alert. He was oriented walker at physical therapy. He was started on a heart healthy diet, which he tolerated. *The patient understands that he needs higher dose Lactulose for his PSE & accepts the side effects of diarrhea. *The patient now told me he had an EGD/colonoscopy, and a recent PillCam per Dr. Helms in [place], the latter within the past 6 months, which reportedly did not show any active bleeding. Review of Systems: Full 14 point review of systems otherwise noncontributory, and as above Review of Systems Constitutional: Reports: weakness-> improving. Denies: chills, diaphoresis, fever, malaise, unexplained weight loss. EENTM: Denies: blurred vision, double vision, visual changes, eye pain, eye drainage, eye tearing, icterus, ear discharge, ear pain, ear redness, hearing changes, nasal congestion, epistaxis, nasal pain, throat pain, throat swelling, mouth pain, tooth pain. Cardiovascular: Denies: chest pain, edema, orthopena, palpitations, peripheral edema, syncope. Respiratory: Denies: cough, hemoptysis, orthopnea, short of breath, sputum production, stridor, wheezing. GI: Denies: abdominal pain, bloating, constipation, diarrhea, distention, bowel incontinence, melena, nausea, bloody stool, changes in stool, vomiting, steatorrhea. Genitourinary: Denies: discharge, dysuria, frequency, hematuria, hesitation, nocturia, pain, urgency. Musculoskeletal: Reports: back pain (chronic), neck pain (chronic; C-spine fusion). Denies: gout, joint pain, joint swelling, muscle pain, muscle stiffness. Skin: Denies: cysts, change in skin color, change in hair/nails, dryness, erythema, jaundice, lesions, lymphangitis, lumps, moles, rash. Neurological/Psychological: Reports: cognitive dysfunction (hx PSE). Denies: anxiety, ataxia, confusion, depressed, dementia, emotional problems, headache, numbness, paresthesia, pre-existing deficit, petit mal seizures, tingling, tremors, tonic-clonic seizures, unable to move lower ext, unable to move upper ext, weakness, other. Hematologic/Endocrine: Denies: bruising, bleeding, polyuria, polydipsia. Immunologic/Allergic: Denies: splenectomy, HIV/AIDS, lymphadenopathy. All Other Systems: Reviewed and Negative Objective Vital Signs and I&Os Vital Signs Date Time Temp Pulse Resp B/P B/P Pulse O2 O2 Flow FiO2 Mean Ox Delivery Rate 06/01 1413 98.2 67 18 130/62 98 06/01 1413 98.2 67 20 130/62 98 Room Air 06/01 1023 132/62 06/01 0600 98.3 66 20 132/62 97 Room Air 05/31 2147 70 122/62 05/31 2145 98.1 71 20 120/58 98 05/31 1908 98.2 73 18 140/60 97 05/31 1823 98.5 73 18 139/65 99 Room Air 05/31 1656 96.1 72 16 147/64 99 Room Air 05/31 1601 Room Air Intake & Output 06/01 1600 06/01 0400 05/31 1600 05/31 0400 05/30 1600 05/30 0400 Intake Total 960 480 Output Total 250 Balance 960 230 Intake, IV 0 Intake, Oral 960 480 Number 0 Bowel Movements Output, Urine 250 Patient 185 lb 188 lb Weight Weight Bed scale Reported by Patient Measurement Method Physical Exam: Well-developed, well-nourished, pleasant elderly male, in no apparent distress. Sclera anicteric. Conjunctiva pink. NCAT. Oropharynx clear. No oral thrush. No apthous ulcers. Sinuses: NT. There is no adenopathy, thyromegaly, or JVD. Carotids 1+ B/L without bruit. No peripheral stigmata of inflammatory bowel disease or chronic liver disease on exam (aside from PSE-> improved). No spiders on the anterior chest wall. No gynecomastia. No CVA tenderness. Post C-spine fusion. Lungs: clear to A&P. No wheezing, rales, or rhonchi. Heart exam: regular rate rhythm, S1 and S2, without any murmur, rub, gallop, or click. Abdominal exam: normal bowel sounds, soft belly, slightly obese, nontender, without guarding or rebound. No mass. Liver approximately 14 cm by percussion. Negative Guajardo sign. Borderline palpable spleen tip. No fluid shift. No pulsatile mass. No epigastric bruit. Digital rectal exam 05/31/17: brown stool, trace OB-positive, large palpable internal hemorrhoids, normal sphincter tone, no mass, smooth prostate without nodule, no external hemorrhoids, no fissure, no perianal disease. Extremities: without C, C, or E. No palpable cords. Moderate DJD. No psoriatic changes in the nail beds. No rash. No palmar erythema. No Dupuytren's contractures. Distal pulses 2+ bilaterally. DTRs 2+ bilaterally. Right handed. CN II-XII intact. Currently alert and oriented x 3. Motor 5/5 B/L. Gait not assessed (ambulated with walker at physical tx 06/01/17). A detailed exam for peripheral neuropathy was deferred. No tremor. No asterixis. Current Medications: Current Medications Sig/Krista Start time Last Medication Dose Route Stop Time Status Admin Atorvastatin Calcium 20 MG 1700 06/01 1700 AC PO Cholecalciferol 2,000 IU DAILY 06/01 1000 AC 06/01 PO 1022 Ergocalciferol 50,000 IU QTHURS 06/06 1000 AC PO Ferrous Sulfate 325 MG DAILY 06/01 1000 DC PO Ferrous Sulfate 325 MG TID 06/01 1000 AC 06/01 PO 1022 Folic Acid 1 MG DAILY 06/01 1000 AC 06/01 PO 1022 Lactobacillus 1 CAP DAILY 06/01 1000 AC 06/01 Acidophilus PO 1022 Lactulose 20 GM TID 06/01 1000 AC 06/01 PO 1024 Lactulose 20 GM TID 05/31 1900 DC 06/01 PO 0243 Morphine Sulfate 2 MG Q4P PRN 05/31 1915 DC IV Omeprazole 40 MG DAILY AC 06/01 0700 AC 06/01 PO 0533 Phytonadione 5 MG DAILY 06/01 1000 AC 06/01 PO 1022 Pramipexole 0.125 MG QPM 05/31 2199 AC 05/31 Dihydrochloride PO 2147 Propranolol HCl 10 MG BID 05/31 2200 AC 06/01 PO 1023 Rifaximin 550 MG BID 05/31 2200 AC 06/01 PO 1022 Results Pertinent Lab Results: Laboratory Tests 06/01 06/01 0732 0730 Chemistry Alpha Fetoprotein Pending Methylmalonic Acid Pending RBC Folate Pending Serology RPR Titer/FTA Pending Urines Urine Color (YEL,AMB,STR) YEL Urine Clarity (CLEAR) CLEAR Urine pH (5.0 - 8.0) 5.5 Ur Specific Hamilton (1.001 - 1.035) >= 1.030 Urine Protein (NEG,<30 MG/DL) NEG Urine Ketones (NEG) TRACE H Urine Nitrite (NEG) NEG Urine Bilirubin (NEG) NEG Urine Urobilinogen (0.1 - 1.0 EU/dl) 0.2 Ur Leukocyte Esterase (NEG) NEG Ur Microscopic EXAM NOT REQUIRED Urine Hemoglobin (NEG) NEG Urine Glucose (N MG/DL) NEG 06/01 05/31 0730 1535 Chemistry Sodium (137 - 145 mmol/L) 147 H 145 Potassium (3.5 - 5.1 mmol/L) 3.5 4.0 Chloride (98 - 107 mmol/L) 114 H 113 H Carbon Dioxide (22 - 30 mmol/L) 22 22 Anion Gap (5 - 16) 11 11 BUN (9 - 20 mg/dL) 12 13 Creatinine (0.7 - 1.2 mg/dL) 0.7 0.7 Estimated GFR (>60 ml/min) > 60 > 60 BUN/Creatinine Ratio (7 - 25 %) 17.1 18.6 Glucose (65 - 99 mg/dL) 194 H Calcium (8.4 - 10.2 mg/dL) 8.8 Magnesium (1.6 - 2.3 mg/dL) 1.7 Iron (49 - 181 ug/dL) 32 L TIBC (261 - 462 ug/dL) 386 Ferritin (17.9 - 464 ng/mL) 11.9 L Total Bilirubin (0.2 - 1.3 mg/dL) 1.1 1.0 Direct Bilirubin (< 0.4 mg/dL) 0.5 H AST (17 - 59 U/L) 43 45 ALT (21 - 72 U/L) 43 40 Alkaline Phosphatase (< 127 U/L) 118 124 Ammonia (9 - 30 umol/L) 113 H Troponin I (<0.11 ng/ml) < 0.01 Total Protein (6.3 - 8.2 g/dL) 6.3 6.4 Albumin (3.5 - 5.0 g/dL) 2.6 L 2.8 L Globulin (1.9 - 4.2 gm/dL) 3.6 Albumin/Globulin Ratio (1.1 - 2.2 %) 0.8 L Vitamin B12 (239 - 931 pg/mL) 857 TSH (0.270 - 4.200 uIU/mL) 3.070 Free T4 (0.78 - 2.44 ng/dL) 1.22 Coagulation PT (9.4 - 12.5 SEC) 14.9 H 15.0 H INR (0.90 - 1.17) 1.36 H 1.37 H APTT (25 - 37 SEC) 39 H Hematology CBC w Diff NO MAN DIFF REQ NO MAN DIFF REQ WBC (4.8 - 10.8 /CUMM) 4.2 L 5.1 RBC (4.70 - 6.10 /CUMM) 2.58 L 2.68 L Hgb (14.0 - 18.0 G/DL) 7.1 *L 7.5 L Hct (42 - 52 %) 22.4 L 23.1 L MCV (80.0 - 94.0 FL) 86.9 86.3 MCH (27.0 - 31.0 PG) 27.6 27.8 MCHC (33.0 - 37.0 G/DL) 31.7 L 32.3 L RDW (11.5 - 14.5 %) 17.9 H 17.1 H Plt Count (130 - 400 /CUMM) 83 L 85 L MPV (7.4 - 10.4 FL) 8.0 7.7 Gran % (42.2 - 75.2 %) 63.2 64.2 Lymphocytes % (20.5 - 51.1 %) 18.5 L 18.6 L Monocytes % (1.7 - 9.3 %) 12.6 H 12.1 H Eosinophils % (0 - 5 %) 4.4 4.6 Basophils % (0.0 - 2.0 %) 1.3 0.5 Absolute Granulocytes (1.4 - 6.5 /CUMM) 2.6 3.2 Absolute Lymphocytes (1.2 - 3.4 /CUMM) 0.8 L 0.9 L Absolute Monocytes (0.10 - 0.60 /CUMM) 0.5 0.6 Absolute Eosinophils (0.0 - 0.7 /CUMM) 0.2 0.2 Absolute Basophils (0.0 - 0.2 /CUMM) 0.1 0 Serology Hepatitis A IgM Ab (NONREACTIVE) NONREACTIVE Hep Bs Antigen (NONREACTIVE) NONREACTIVE Hep B Core IgM Ab Conf (NONREACTIVE) NONREACTIVE Hepatitis C Antibody (NONREACTIVE) NONREACTIVE Imaging/Other Studies: 05/31/17: EKG- NSR @ 70, nl axis, borderline prolonged QT interval, NSST lat. 06/01/17: CT HEAD WITHOUT CONTRAST- Mild generalized atrophy and nonspecific periventricular white matter disease. No intracranial lesion identified. 06/01/17: US-COMPLETE ABDOMEN COMPARISON: Previous ultrasound 05/25/17.
[2017-06-01 22:14] VITALS: BP 122/70
--- NOTE | 2017-06-01 23:03 | Patient Discharge Instructions ---
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 Diet Continue normal diet: Yes Recommended Diet: Diabetic, Heart Healthy Activity Full Activity/No Limits: Yes Acute Coronary Syndrome Inclusion Criteria At DC or during hospital stay patient has or had the following: ACS DIAGNOSIS No Discharge Core Measures Meds if any: Prescribed or Continued at Discharge Meds if any: NOT Prescribed or Continued at Discharge Congestive Heart Failure Inclusion Criteria At DC or during hospital stay patient has or had the following: CHF DIAGNOSIS No Discharge Core Measures Meds if any: Prescribed or Continued at Discharge Meds if any: NOT Prescribed or Continued at Discharge Cerebrovascular accident Inclusion Criteria At DC or during hospital stay patient has or had the following: CVA/TIA Diagnosis No Discharge Core Measures Meds if any: Prescribed or Continued at Discharge Meds if any: NOT Prescribed or Continued at Discharge Venous thromboembolism Inclusion Criteria VTE Diagnosis No VTE Type NONE VTE Confirmed by (Test) NONE Discharge Core Measures - Per Current guidelines, there needs to be overlap - treatment for the first 5 days of Warfarin therapy. - If discharged on Warfarin prior to 5 days of - overlap therapy, the patient will need to be - assessed for post discharge needs including - *Post discharge parental anticoagulation - *Warfarin and/or parental anticoagulation education - *Follow up date to check INR post discharge At least 5 days overlap therapy as Inpatient No Meds if any: Prescribed or Continued at Discharge Note: Overlap Therapy is Warfarin and Anticoagulant Meds if any: NOT Prescribed or Continued at Discharge
[2017-06-02 06:07] VITALS: BP 118/68
[2017-06-02 08:11] LABS: ABSOLUTE BASOPHIL COUNT 0 /CUMM (0.0-0.2); ABSOLUTE EOSINOPHIL COUNT 0.3 /CUMM (0.0-0.7); ABSOLUTE MONOCYTE COUNT 0.7 /CUMM (0.10-0.60); MEAN PLATELET VOLUME 7.9 FL (7.4-10.4); PLATELET COUNT 80 /CUMM (130-400); WHITE BLOOD CELL COUNT 5.3 /CUMM (4.8-10.8)
--- NOTE | 2017-06-02 08:29 | PN- Housestaff ---
Subjective Follow-up For: Confusion and possible Hepatic encephalopathy History of dizziness Complaints: no complaints Subjective: Patient seen and examined at bedside. No overnight events. No periods of confusion. He is alert and oriented 3. He offers no complaints. He said he had a bowel movement yesterday. He denies confusion, agitation, headache, nausea, vomiting, abdominal pain. Review of Systems Constitutional: Reports: see HPI. Objective Last 24 Hrs of Vital Signs/I&O Vital Signs Date Time Temp Pulse Resp B/P B/P Pulse O2 O2 Flow FiO2 Mean Ox Delivery Rate 06/02 0607 98.4 63 20 118/68 98 06/01 2214 98.1 74 18 122/70 96 Room Air 06/01 2101 74 122/70 06/01 1413 98.2 67 18 130/62 98 06/01 1413 98.2 67 20 130/62 98 Room Air Intake & Output 06/02 1600 06/02 0800 06/02 0000 Intake Total 120 700 Output Total 350 Balance 120 350 Intake, Oral 120 700 Number 0 Bowel Movements Output, Urine 350 Patient 196 lb Weight Weight Bed scale Measurement Method Physical Exam General Appearance: Alert, Oriented X3, Cooperative, No Acute Distress Cardiovascular: Normal S1, Normal S2, No Murmurs Lungs: Clear to Auscultation Abdomen: Soft, No Tenderness, No Hepatospenomegaly Neurological: Normal Speech, Strength at 5/5 X4 Ext, Normal Tone, Sensation Intact Extremities: No Cyanosis, No Edema Current Medications: Current Medications Sig/Krista Start time Last Medication Dose Route Stop Time Status Admin Atorvastatin Calcium 20 MG 1700 06/01 1700 AC 06/01 PO 1627 Cholecalciferol 2,000 IU DAILY 06/01 1000 AC 06/01 PO 1022 Ergocalciferol 50,000 IU QTHURS 06/06 1000 AC PO Ferrous Sulfate 325 MG TID 06/01 1000 AC 06/01 PO 2100 Folic Acid 1 MG DAILY 06/01 1000 AC 06/01 PO 1022 Lactobacillus 1 CAP DAILY 06/01 1000 AC 06/01 Acidophilus PO 1022 Lactulose 20 GM TID 06/01 1000 AC 06/01 PO 2100 Omeprazole 40 MG DAILY AC 06/01 0700 AC 06/02 PO 0551 Phytonadione 5 MG DAILY 06/01 1000 AC 06/01 PO 1022 Potassium Chloride 40 MEQ ONCE ONE 06/02 0845 DC PO 06/02 0846 Pramipexole 0.125 MG QPM 05/31 2199 AC 06/01 Dihydrochloride PO 2100 Propranolol HCl 10 MG BID 05/31 2199 AC 06/01 PO 2100 Rifaximin 550 MG BID 05/31 2199 AC 06/01 PO 2058 Last 24 Hrs of Lab/Kvng Results Last 24 Hrs of Labs/Mics: Laboratory Tests 06/02/17 0655: Anion Gap 12, Estimated GFR > 60, BUN/Creatinine Ratio 14.3, Total Bilirubin 0.9 , Direct Bilirubin 0.5 H, AST 58, ALT 44, Alkaline Phosphatase 114, Ammonia 91 H, Total Protein 5.9 L, Albumin 2.4 L, PT 15.5 H, INR 1.42 H, CBC w Diff NO MAN DIFF REQ, RBC 2.60 L, MCV 86.4, MCH 27.5, MCHC 31.8 L, RDW 18.1 H, MPV 7.9, Gran % 58.1, Lymphocytes % 22.2, Monocytes % 13.6 H, Eosinophils % 5.4 H, Basophils % 0.7, Absolute Granulocytes 3.1, Absolute Lymphocytes 1.2, Absolute Monocytes 0.7 H, Absolute Eosinophils 0.3, Absolute Basophils 0 Assessment/Plan Assessment: 71-year-old male with past medical history significant for hypertension, hyperlipidemia, [place], GI bleed, ascites, type 2 diabetes mellitus, gastroesophageal reflux disease, mitral valve prolapse, RLS, cervical fusion surgery and spinal stenosis, hepatic encephalopathy on lactulose, anemia, thrombocytopenia was brought in to the ED for worsening confusion and fatigue. Assessment: 1. Confusion-can be secondary due to portosystemic encephalopathy/ vertigo 2. Elevated ammonia 3. History of hypertension, hyperlipidemia 4. Chronic Thrombocytopenia 5. Chronic anemia 6. [place] with cirrhosis 7. GI bleed-history of varices, history of gastric and colonic polyp 8. GERD 9. Dizziness/vertigo 10. Restless leg syndrome * Continue current management of lactulose 20 mg 3 times a day and rifaximin 550 mg twice a day. According to the patient, he had a large bowel movement yesterday. * Chronic anemia-patient hemoglobin today 7.2. No GI bleed. Guaiac Negative. Continue monitoring. 1 unit of blood to be transfused today. Resident aware. * Confusion-patient admission ammonia 113 and today is 91. Patient has a history of dizziness and was evaluated for vertigo by neurology in the past. Head CT upon admission negative. No GI bleed now electrolytes stable. No history of diuretic use/dehydration. No history of any infection to precipitate portosystemic encephalopathy. His confusion/dizziness needs further evaluation by neurology. * Follow up cultures * Pending RBC folate, vitamin B12, methylmalonic acid level, alpha-fetoprotein. * TFT-normal * Hepatitis C IgM antibody-nonreactive, hepatitis B antigen negative, hepatitis B core antigen IgM nonreactive, hepatitis C antibody nonreactive. RPR titer pending. * Chronic medical condition-continue lactulose, statin, vitamin K 5 mg, omeprazole, rifaximin, propranolol, pramipexole. Code- full code DVT prophylaxis-Alps Problem List: 1. Portal hypertensive gastropathy 2. History of ascites 3. Cirrhosis 4. Chronic disease anemia 5. Confusion Pain Ratin Pain Location: none Pain Goal: Remain pain free Pain Plan: TYLENOL Tomorrow's Labs & Rationales: CBC ,BEP
[2017-06-02 08:45] LABS: ABSOLUTE GRANULOCYTE CT 3.1 /CUMM (1.4-6.5); ABSOLUTE LYMPH COUNT 1.2 /CUMM (1.2-3.4); BASOPHIL % 0.7 % (0.0-2.0); EOSINOPHIL % 5.4 % (0-5); GRANULOCYTE % 58.1 % (42.2-75.2); HEMATOCRIT 22.5 % (42-52); MEAN CORPUSCULAR HGB 27.5 PG (27.0-31.0); MEAN CORPUSCULAR HGB CONC 31.8 G/DL (33.0-37.0); MEAN CORPUSCULAR VOLUME 86.4 FL (80.0-94.0); RBC DISTRIBUTION WIDTH 18.1 % (11.5-14.5)
[2017-06-02 09:02] LABS: PT 15.5 SEC (9.4-12.5)
--- NOTE | 2017-06-02 13:27 | PN- Att Addend ---
Attending Addendum Attending Brief Note Patient seen and examined. Plan of care discussed with the medical team and the patient. Available lab work and radiology test reports were reviewed. Patient now awake and alert and oriented. Patient denies any any confusion chest pain nausea vomiting or diarrhea. He is anxious to go home today. Exam: General: Patient awake alert oriented without any distress; no asterixis noted CVS: S1 plus S2 without any murmur or gallops Chest: Few scattered crepitation without any wheeze. There is no respiratory distress. Abdomen: Soft non-tender, bowel sound present, no guarding or rebound [employer]: Awake alert oriented without any focal neuro deficit and follows commands appropriately Extremities: No edema; no clubbing or cyanosis noted Assessment 1. Encephalopathy likely worsening of hepatic encephalopathy- much improved 2. Elevated ammonia 3. History of hypertension, hyperlipidemia 4. Chronic Thrombocytopenia 5. Chronic anemia 6. Hypokalemia past medical history significant for hypertension, hyperlipidemia, [place], GI bleed, ascites, type 2 diabetes mellitus,gastroesophageal reflux disease, mitral valve prolapse Plan * Continue lactulose; can reduce dose if pt has diarrhea * Replace potassium by mouth with 40 mg and 1 * Recheck potassium in a.m. * Out of bed and ambulate with assist; patient told me that he was unsteady on his feet yesterday * Check guaiac stool Current Medications Sig/Krista Start time Last Medication Dose Route Stop Time Status Admin Atorvastatin Calcium 20 MG 1700 06/01 1700 AC 06/01 PO 1627 Cholecalciferol 2,000 IU DAILY 06/01 1000 AC 06/02 PO 1052 Ergocalciferol 50,000 IU QTHURS 06/06 1000 AC PO Ferrous Sulfate 325 MG TID 06/01 1000 AC 06/02 PO 1052 Folic Acid 1 MG DAILY 06/01 1000 AC 06/02 PO 1052 Lactobacillus 1 CAP DAILY 06/01 1000 AC 06/02 Acidophilus PO 1052 Lactulose 20 GM TID 06/01 1000 AC 06/02 PO 1053 Omeprazole 40 MG DAILY AC 06/01 0700 AC 06/02 PO 0551 Phytonadione 5 MG DAILY 06/01 1000 AC 06/02 PO 1052 Potassium Chloride 40 MEQ ONCE ONE 06/02 0845 DC 06/02 PO 06/02 0846 1053 Pramipexole 0.125 MG QPM 05/31 2200 AC 06/01 Dihydrochloride PO 2100 Propranolol HCl 10 MG BID 05/31 2199 AC 06/02 PO 1053 Rifaximin 550 MG BID 05/31 2199 AC 06/02 PO 1052 Laboratory Tests 06/02/17 0655: Anion Gap 12, Estimated GFR > 60, BUN/Creatinine Ratio 14.3, Total Bilirubin 0.9 , Direct Bilirubin 0.5 H, AST 58, ALT 44, Alkaline Phosphatase 114, Ammonia 91 H, Total Protein 5.9 L, Albumin 2.4 L, PT 15.5 H, INR 1.42 H, CBC w Diff NO MAN DIFF REQ, RBC 2.60 L, MCV 86.4, MCH 27.5, MCHC 31.8 L, RDW 18.1 H, MPV 7.9, Gran % 58.1, Lymphocytes % 22.2, Monocytes % 13.6 H, Eosinophils % 5.4 H, Basophils % 0.7, Absolute Granulocytes 3.1, Absolute Lymphocytes 1.2, Absolute Monocytes 0.7 H, Absolute Eosinophils 0.3, Absolute Basophils 0 06/01/17 0732: Urine Color YEL, Urine Clarity CLEAR, Urine pH 5.5, Ur Specific [place] >= 1.030 , Urine Protein NEG, Urine Ketones TRACE H, Urine Nitrite NEG, Urine Bilirubin NEG, Urine Urobilinogen 0.2, Ur Leukocyte Esterase NEG, Ur Microscopic EXAM NOT REQUIRED, Urine Hemoglobin NEG, Urine Glucose NEG 06/01/17 0730: Alpha Fetoprotein Pending, Methylmalonic Acid Pending, RBC Folate Pending, RPR Titer/FTA Pending 06/01/17 0730: Anion Gap 11, Estimated GFR > 60, BUN/Creatinine Ratio 17.1, Iron 32 L, TIBC 386, Ferritin 11.9 L, Total Bilirubin 1.1, Direct Bilirubin 0.5 H, AST 43, ALT 43, Alkaline Phosphatase 118, Total Protein 6.3, Albumin 2.6 L, Vitamin B12 857 , TSH 3.070, Free T4 1.22, PT 14.9 H, INR 1.36 H, CBC w Diff NO MAN DIFF REQ, RBC 2.58 L, MCV 86.9, MCH 27.6, MCHC 31.7 L, RDW 17.9 H, MPV 8.0, Gran % 63.2 , Lymphocytes % 18.5 L, Monocytes % 12.6 H, Eosinophils % 4.4, Basophils % 1.3 , Absolute Granulocytes 2.6, Absolute Lymphocytes 0.8 L, Absolute Monocytes 0.5 , Absolute Eosinophils 0.2, Absolute Basophils 0.1, Hepatitis A IgM Ab NONREACTIVE, Hep Bs Antigen NONREACTIVE, Hep B Core IgM Ab Conf NONREACTIVE, Hepatitis C Antibody NONREACTIVE 05/31/17 1535: Anion Gap 11, Estimated GFR > 60, BUN/Creatinine Ratio 18.6, Glucose 194 H, Calcium 8.8, Magnesium 1.7, Total Bilirubin 1.0, AST 45, ALT 40, Alkaline Phosphatase 124, Ammonia 113 H, Troponin I < 0.01, Total Protein 6.4, Albumin 2.8 L, Globulin 3.6, Albumin/Globulin Ratio 0.8 L, PT 15.0 H, INR 1.37 H, APTT 39 H, CBC w Diff NO MAN DIFF REQ, RBC 2.68 L, MCV 86.3, MCH 27.8, MCHC 32.3 L, RDW 17.1 H, MPV 7.7, Gran % 64.2, Lymphocytes % 18.6 L, Monocytes % 12.1 H, Eosinophils % 4.6, Basophils % 0.5, Absolute Granulocytes 3.2, Absolute Lymphocytes 0.9 L, Absolute Monocytes 0.6, Absolute Eosinophils 0.2, Absolute Basophils 0 Microbiology 06/01 0745 BLOOD: Blood Culture - RES 06/01 07 BLOOD: Blood Culture - RES 06/01 599 URINE ROUT: Urine Culture - RES 06/01 599 LOWER RESP: Respiratory Culture - COLB 06/01 599 LOWER RESP: Gram Stain - COLB Vital Signs Date Time Temp Pulse Resp B/P B/P Pulse O2 O2 Flow FiO2 Mean Ox Delivery Rate 06/02 1053 72 118/56 06/02 0607 98.4 63 20 118/68 98 06/01 2214 98.1 74 18 122/70 96 Room Air 06/01 2101 74 122/70 06/01 1413 98.2 67 18 130/62 98 06/01 1413 98.2 67 20 130/62 98 Room Air Intake & Output 06/02 1600 06/02 0800 06/02 0000 Intake Total 120 700 Output Total 350 Balance 120 350 Intake, Oral 120 700 Number 0 Bowel Movements Output, Urine 350 Patient 196 lb Weight Weight Bed scale Measurement Method
[2017-06-02 16:00] VITALS: BP 108/60
--- NOTE | 2017-06-02 17:02 | PN- Gastroenterology ---
Assessment/Plan GI Assessment/Recommendations: 71 y/o male HTN, HLD, AODM, KINGSTON with cirrhosis, hx GI bleed, hx varices by MRI, hx ascites, chronic anemia (hx Fe def-> transfx prn; baseline HCT mid-upper 20's ) & thrombocytopenia, GERD, past hx colon polyps, gastric polyps, known cholelithiasis with intact GB, MVP, chest pain syndrome, restless leg syndrome, psoriatic arthritis, spinal stenosis, cervical fusion (C-spine sugery x 3, "awaiting L- fusion"), DJD, followed by Dr. Reymundo Francois for primary care, Dr. Jojo Helms at [facility] for GI/liver, & Dr. Ileana Claros for neurology, recently admitted to [facility] 05/25/17 - 05/27/17 for PSE & fatigue, with NH3 96 then. He was D/C to follow up with Dr. Helms as an outpt. He was recently seen in inpt GI consultation at [facility] by Dr. Portillo, on 05/25/17. He was previously seen in inpt GI consultation at [facility] by Dr. Jovi Sequeira 08/01/15, who had obtained records from Dr. Helms, at that time: 01/2014: EGD/EUS (Dr. Helms)- broad based antral polyps, each 2-3 cm in size. They were biopsied, interpreted as foveolar hyperplasia with ulceration and severe inflammation, negative for malignancy. They were not removed because of risk of bleeding. 05/2015: EGD (Dr. Helms)- large gastric polyps, mild portal hypertensive gastropathy, and no evident esophageal or gastric varices. 05/2015: Colonoscopy (Dr. Helms)- unrevealing. 07/18/15: MRI (Dr. Helms)- nodular liver, no evident hepatoma, small gallstones, portal venous system patency with multiple splenic varices with spontaneous splenorenal shunt, and esophageal varices. Splenomegaly, small amount of ascites 08/01/15: EGD to D2 (Dr. Jovi Sequeira)- Impression: * No active bleeding, or old blood * No evident varices * Shallow GE junction ulceration * Portal hypertensive gastropathy * Antral polyps * Small duodenal telangiectasias The patient claimed he has not had a repeat EGD since 08/01/15. He denied ever having had a PillCam. He claimed he had a liver biopsy by Dr. Helms. 05/25/17: XRY-CHEST XRAY, TWO VIEWS- No acute pulmonary disease. No evidence of pulmonary venous hypertension or pleural effusion. Cervical spine fusion hardware intact. DJD. 05/25/17: US ABDOMEN COMPLETE- 1. Hepatic cirrhosis and splenomegaly 14.1 cm. No ascites or other new finding compared to 02/27/17. No HCC. 2. Cholelithiasis without evidence of acute cholecystitis. No dilated IHD or EHD , with CBD 3 mm. 3. Normal kidneys without hydronephrosis. *The patient presented to the [facility] ER 05/31/17 at 2:39 p.m., arriving with his for evaluation of confusion. Visiting nurse came to the house earlier in the day of admission, and advised him to go to the hospital. Upon arrival, he was only O x 1 (person), with BP 123/60, P 75, R 20, T 97.2, O2 sat RA 98%. The patient's stated that since the patient's 05/27/2017 [facility] discharge, he was never really 100%. He had been feeling weak and confused which has progressed. The confusion became worse 05/30/17, as he was unable to distinguish a TV remote control from the telephone. The patient was up all night the evening [employer]. *He apparently was compliant with his medications, which included Lactulose 20 g po daily (5 loose BM daily on this), Rifaximin 550 mg po BID, Vitamin D2/Vitamin D3, Vitamin K 5 mg po daily, iron 325 mg po daily, folate 1 mg po daily, Lactobacillus, insulin, Milk thistle, Remeron 15 mg po at night, Protonix 40 mg po daily, Mirapex 0.125 mg po daily, Inderal 10 mg po BID, Zocor 40 mg po daily, Janumet 50/1000mg tab BID, & Lantus insulin 20u sc Q p.m. *He was not on any diuretics. The patient has a history of dizziness and questionable vertigo, followed by neurology. There is a questionable history of ataxia. He has a history of falls , but denied any head trauma or LOC. He ambulates with a quad cane or a walker. He denied having any recent CT of the head. At the time of my GI consultation, he was O 2, not to time ("1985"). He denied any NSAIDs, aspirin, Tylenol, or herbal medications. He denied using any sedative hypnotics. He denied any fevers, chills, CP, SOB, ODEN, symptoms of UTI, or URI. He denied any increased abdominal girth or peripheral edema. He denied any jaundice, dark urine, light stools, or pruritus. His appetite was good. His weight was stable. He denied any heartburn at the moment. He denied any odynophagia, dysphagia, hematemesis, abdominal pain, nausea, vomiting, early satiety, diarrhea (aside from loose stools on Lactulose), constipation, obstipation, tenesmus, rectal bleeding, or melena. FHx positive for colon Ca (M- 89). No FHx inherited liver disease. 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 He denied any EtOH, cigarette smoking, or illicit drugs. He denied any IVDA, tattoos, or viral hepatitis. He has been transfused, as previously noted. He has a living will. His , Anneliese Parker, is his POA. 05/31/17: Admission labs- WBC 5.1, H/H 7.5/23.1, MCV 86.3, RDW 17.1, PLT 85, PT 15.0, INR 1.37, PTT 39, glucose 194, BUN/Cr 13/0.7, GFR > 60, Na 145, K 4.0, HCO3 22, AG 11,Mg 1.7, Ca 8.8, alb 2.8, glob 3.6, TBil 1.0, alk phos 124, AST 45 , ALT 40, *NH3 113, troponin < 0.01. 05/31/17: *Admission MELD: < 10. 05/31/17: EKG- NSR @ 70, nl axis, borderline prolonged QT interval, NSST lat. Apparently, no other imaging studies were obtained from the ER on 05/31/17. *No definite precipitants for PSE were noted on admission, aside from brown stool, trace-OB positive (in the setting of internal hemorrhoids). Having stated that, there was no overt hematemesis to suggest active upper GI bleeding as a precipitant for this (swallowed blood acts as a protein substrate, raising NH3 levels). The patient's electrolytes were stable. He was not on any diuretics to precipitate dehydration. There was no hypokalemia. He had no leukocytosis, nor fever. He had no signs of sepsis. He had no symptoms of UTI or URI. There was no definite fluid shift on exam to suggest SBP. Having stated that, no U/A nor imaging studies, aside from EKG, were obtained on admission. He was not on any oupt sedative hypnotics. Apparently, he was compliant with his outpatient medications, which included Rifaximin and Lactulose, although he was only taking the latter at a dose of 20 g daily. There were no definite focal neurologic deficits on exam. The history of falls was noted, although the patient denied any head trauma. The patient may have a separate entity of vertigo/dizziness, which may be distinct from his PSE. 06/01/17: CT HEAD WITHOUT CONTRAST- Mild generalized atrophy and nonspecific periventricular white matter disease. No intracranial lesion identified. 06/01/17: US-COMPLETE ABDOMEN COMPARISON: Previous ultrasound 05/25/17. IMPRESSION: Limited 4 quadrant abdominal ultrasound demonstrates no ascites. 06/01/17: XRY-PORTABLE CHEST XRAY- No evidence for acute disease in the chest. DJD. Post C-spine surgery. 06/01/17: WBC 4.2, H/H 7.1/22.4, MCV 86.9, RDW 17.9, PLT 83, PT 14.9, INR 1.36, BUN/Cr 12/0.7, GFR > 60, *Na 147, K 3.5, HCO3 22, AG 11, albumin 2.6, globulin 3.7, TBil 1.1, DBil 0.5, alk phos 118, AST 43, ALT 43 (*NH3- not repeated), *Hep A Ab, Hep Bs Ag, Hep B core Ab, Hep C Ab- all neg; nl FT4 1.22, nl TSH 3.07, Fe 32, TIBC 386, *Fe sat 8.3%,*ferritin 11.9, B12 857 06/01/17: VDRL, MMA, RBC folate, AFP- *all pending. 06/01/17: U/A- clear yellow, > 1.030, 5.5, micro- neg xc tr ketone, neg nitrite, neg esterase. *As of 06/01/17, the patient remained hemodynamically stable and afebrile. BP 130/62, P 67, R 18, T 98.2, O2 sat RA 98%. Numerous imaging studies on 06/01/17 essentially negative, including complete abdominal ultrasound- without ascites, CXR- clear, CT head w/o cont- mild generalized atrophy & nonspecific periventricular white matter disease, without any infarct, bleeding, or lesion. Multiple cultures- pending. Iron was increased to TID, along with increased Lactulose 20 g TID, Rifaximin 550 mg BID, Omeprazole 40 mg daily, Inderal 10 mg po BID, Vit K, & folate, etc. the patient was much more alert. He was oriented walker at physical therapy. He was started on a heart healthy diet, which he tolerated. *The patient understands that he needs higher dose Lactulose for his PSE & accepts the side effects of diarrhea. The patient now told me he had an EGD/colonoscopy, and a recent PillCam per Dr. Helms in [place], the latter within the past 6 months, which reportedly did not show any active bleeding. 06/02/17: 6:55 a.m.- WBC 5.3, H/H 7.2/22.5 (prior to transfx 1u PRBC later in the day), PLT 80, PT 15.5, INR 1.42, BUN/Cr 10/0.7, GFR > 60, Na 145, *K 3.2, HCO3 21, AG 12, albumin 2.4, globulin 3.5, TBil 0.9, DBil 0.5, alk phos 114, AST 58, ALT 44, *NH3 91 *As of 06/02/17, the patient was hemodynamically stable and afebrile (T 98.7, Tm 99), with O2 sat RA 98%. The patient was being transfused 1u PRBC on 06/02/17, as per the medical service, for Hgb 7.2. He remained A & O x 3, & his cognition was much better, after his dose of Lactulose was increased to 20g TID, in addition to maintaining Rifaximin 550 mg po BID. He had 2 large loose brown BMs (on Lactulose), without overt GI bleeding or melena. (He apparently chronically has intermittent OB+ stools). He ambulated with physical therapy with a rolling walker. He had no new complaints & wanted to go home. *SUGGEST- Follow-up cultures. *Obtain most recent GI records from Dr. Jojo Helms ([facility] ). *The patient's iron deficiency anemia is chronic, and he has had an extensive workup by Dr. Helms for this, reportedly including a PillCam, within the past 6 months. Keep Hgb > 7. *Continue Lactulose 20g TID as tolerated. *Continue Rifaximin 550 mg po BID. 2g Na+, heart healthy, DM diet with aspiration precautions. Keep HOB elevated > 60 with feeds. *Replete K+. *Serial CBC, NH3, lytes, BUN/Cr, GFR, LFTs. *Await 06/01/17: VDRL, MMA, RBC folate, & AFP. * Continue Fe 325 mg po TID. *Continue Inderal 10 mg po BID, Omeprazole 40 mg daily, folate, & Vit K. Other meds as per medical team. DVT prophylaxis. Continue to mobilize patient with physical tx. *Try to avoid sedative hypnotics & analgesics. *As the patient's mental status is now improved, consideration for D/C per medical team, with outpt GI f/u with Dr. Helms. (Hopefully, increasing the Fe dose will counteract the loose stools from the increased dose of Lactulose). The above was previously discussed with the medical house staff. *Further inpt GI follow-up as needed. Problem List: 1. Cirrhosis 2. KINGSTON (nonalcoholic steatohepatitis) 3. Hepatic encephalopathy 4. History of ascites 5. Portal hypertensive gastropathy 6. Iron deficiency anemia 7. Thrombocytopenia 8. Coagulopathy 9. Occult blood positive stool 10. Malnutrition 11. Hypokalemia Subjective Subjective: 06/02/17: 6:55 a.m.- WBC 5.3, H/H 7.2/22.5 (prior to transfx 1u PRBC later in the day), PLT 80, PT 15.5, INR 1.42, BUN/Cr 10/0.7, GFR > 60, Na 145, *K 3.2, HCO3 21, AG 12, albumin 2.4, globulin 3.5, TBil 0.9, DBil 0.5, alk phos 114, AST 58, ALT 44, *NH3 91 *As of 06/02/17, the patient was hemodynamically stable and afebrile (T 98.7, Tm 99), with O2 sat RA 98%. The patient was being transfused 1u PRBC on 06/02/17, as per the medical service, for Hgb 7.2. He remained A & O x 3, & his cognition was much better, after his dose of Lactulose was increased to 20g TID, in addition to maintaining Rifaximin 550 mg po BID. He had 2 large loose brown BMs (on Lactulose), without overt GI bleeding or melena. (He apparently chronically has intermittent OB+ stools). He ambulated with physical therapy with a rolling walker. He had no new complaints & wanted to go home. Review of Systems: Full 14 point review of systems otherwise noncontributory, and as above Review of Systems Constitutional: Reports: weakness-> improving. Denies: chills, diaphoresis, fever, malaise, unexplained weight loss. EENTM: Denies: blurred vision, double vision, visual changes, eye pain, eye drainage, eye tearing, icterus, ear discharge, ear pain, ear redness, hearing changes, nasal congestion, epistaxis, nasal pain, throat pain, throat swelling, mouth pain, tooth pain. Cardiovascular: Denies: chest pain, edema, orthopena, palpitations, peripheral edema, syncope. Respiratory: Denies: cough, hemoptysis, orthopnea, short of breath, sputum production, stridor, wheezing. GI: Denies: abdominal pain, bloating, constipation, diarrhea, distention, bowel incontinence, melena, nausea, bloody stool, changes in stool, vomiting, steatorrhea. Genitourinary: Denies: discharge, dysuria, frequency, hematuria, hesitation, nocturia, pain, urgency. Musculoskeletal: Reports: back pain (chronic), neck pain (chronic; C-spine fusion). Denies: gout, joint pain, joint swelling, muscle pain, muscle stiffness. Skin: Denies: cysts, change in skin color, change in hair/nails, dryness, erythema, jaundice, lesions, lymphangitis, lumps, moles, rash. Neurological/Psychological: Reports: cognitive dysfunction (hx PSE)-> improved. Denies: anxiety, ataxia, confusion, depressed, dementia, emotional problems, headache, numbness, paresthesia, pre-existing deficit, petit mal seizures, tingling, tremors, tonic-clonic seizures, unable to move lower ext, unable to move upper ext, weakness, other. Hematologic/Endocrine: Denies: bruising, bleeding, polyuria, polydipsia. Immunologic/Allergic: Denies: splenectomy, HIV/AIDS, lymphadenopathy. All Other Systems: Reviewed and Negative Objective Vital Signs and I&Os Vital Signs Date Time Temp Pulse Resp B/P B/P Pulse O2 O2 Flow FiO2 Mean Ox Delivery Rate 06/02 1600 98.7 69 20 108/60 98 Room Air 06/02 1359 99.0 06/02 1053 72 118/56 06/02 0607 98.4 63 20 118/68 98 06/01 2214 98.1 74 18 122/70 96 Room Air 06/01 2101 74 122/70 Intake & Output 06/02 1600 06/02 0400 06/01 1600 06/01 0400 05/31 1600 05/31 0400 Intake Total 990 700 960 480 Output Total 300 350 250 Balance 690 350 960 230 Intake, Blood 350 Product Intake, IV 20 0 Intake, Oral 620 700 960 480 Number 1 0 Bowel Movements Output, Urine 300 350 250 Patient 196 lb 185 lb 188 lb Weight Weight Bed scale Bed scale Reported by Patient Measurement Method Physical Exam: Well-developed, well-nourished, pleasant elderly male, in no apparent distress. Sclera anicteric. Conjunctiva pink. NCAT. Oropharynx clear. No oral thrush. No apthous ulcers. Sinuses: NT. There is no adenopathy, thyromegaly, or JVD. Carotids 1+ B/L without bruit. No peripheral stigmata of inflammatory bowel disease or chronic liver disease on exam (aside from PSE-> improved). No spiders on the anterior chest wall. No gynecomastia. No CVA tenderness. Post C-spine fusion. Lungs: clear to A&P. No wheezing, rales, or rhonchi. Heart exam: regular rate rhythm, S1 and S2, without any murmur, rub, gallop, or click. Abdominal exam: normal bowel sounds, soft belly, slightly obese, nontender, without guarding or rebound. No mass. Liver approximately 14 cm by percussion. Negative Guajardo sign. Borderline palpable spleen tip. No fluid shift. No pulsatile mass. No epigastric bruit. Digital rectal exam 05/31/17: brown stool, trace OB-positive, large palpable internal hemorrhoids, normal sphincter tone, no mass, smooth prostate without nodule, no external hemorrhoids, no fissure, no perianal disease. Extremities: without C, C, or E. No palpable cords. Moderate DJD. No psoriatic changes in the nail beds. No rash. No palmar erythema. No Dupuytren's contractures. Distal pulses 2+ bilaterally. DTRs 2+ bilaterally. Right handed. CN II-XII intact. Currently alert and oriented x 3. Motor 5/5 B/L. Gait not assessed (ambulated with rolling walker at physical tx 06/02/17). A detailed exam for peripheral neuropathy was deferred. No tremor. No asterixis. Current Medications: Current Medications Sig/Krista Start time Last Medication Dose Route Stop Time Status Admin Acetaminophen 650 MG ONCE ONE 06/02 1400 DC 06/02 PO 06/02 1401 1359 Atorvastatin Calcium 20 MG 1700 06/01 1700 AC 06/01 PO 1627 Cholecalciferol 2,000 IU DAILY 06/01 1000 AC 06/02 PO 1052 Ergocalciferol 50,000 IU QTHURS 06/06 1000 AC PO Ferrous Sulfate 325 MG TID 06/01 1000 AC 06/02 PO 1052 Folic Acid 1 MG DAILY 06/01 1000 AC 06/02 PO 1052 Lactobacillus 1 CAP DAILY 06/01 1000 AC 06/02 Acidophilus PO 1052 Lactulose 20 GM TID 06/01 1000 AC 06/02 PO 1053 Omeprazole 40 MG DAILY AC 06/01 0700 AC 06/02 PO 0551 Phytonadione 5 MG DAILY 06/01 1000 AC 06/02 PO 1052 Potassium Chloride 40 MEQ ONCE ONE 06/02 0845 DC 06/02 PO 06/02 0846 1053 Pramipexole 0.125 MG QPM 05/310 AC 06/01 Dihydrochloride PO 2100 Propranolol HCl 10 MG BID 05/31 2200 AC 06/02 PO 1053 Rifaximin 550 MG BID 05/310 AC 06/02 PO 1052 Results Pertinent Lab Results: Laboratory Tests 06/02 06/01 0655 0732 Chemistry Sodium (137 - 145 mmol/L) 145 Potassium (3.5 - 5.1 mmol/L) 3.2 L Chloride (98 - 107 mmol/L) 112 H Carbon Dioxide (22 - 30 mmol/L) 21 L Anion Gap (5 - 16) 12 BUN (9 - 20 mg/dL) 10 Creatinine (0.7 - 1.2 mg/dL) 0.7 Estimated GFR (>60 ml/min) > 60 BUN/Creatinine Ratio (7 - 25 %) 14.3 Total Bilirubin (0.2 - 1.3 mg/dL) 0.9 Direct Bilirubin (< 0.4 mg/dL) 0.5 H AST (17 - 59 U/L) 58 ALT (21 - 72 U/L) 44 Alkaline Phosphatase (< 127 U/L) 114 Ammonia (9 - 30 umol/L) 91 H Total Protein (6.3 - 8.2 g/dL) 5.9 L Albumin (3.5 - 5.0 g/dL) 2.4 L Coagulation PT (9.4 - 12.5 SEC) 15.5 H INR (0.90 - 1.17) 1.42 H Hematology CBC w Diff NO MAN DIFF REQ WBC (4.8 - 10.8 /CUMM) 5.3 RBC (4.70 - 6.10 /CUMM) 2.60 L Hgb (14.0 - 18.0 G/DL) 7.2 *L Hct (42 - 52 %) 22.5 L MCV (80.0 - 94.0 FL) 86.4 MCH (27.0 - 31.0 PG) 27.5 MCHC (33.0 - 37.0 G/DL) 31.8 L RDW (11.5 - 14.5 %) 18.1 H Plt Count (130 - 400 /CUMM) 80 L MPV (7.4 - 10.4 FL) 7.9 Gran % (42.2 - 75.2 %) 58.1 Lymphocytes % (20.5 - 51.1 %) 22.2 Monocytes % (1.7 - 9.3 %) 13.6 H Eosinophils % (0 - 5 %) 5.4 H Basophils % (0.0 - 2.0 %) 0.7 Absolute Granulocytes (1.4 - 6.5 /CUMM) 3.1 Absolute Lymphocytes (1.2 - 3.4 /CUMM) 1.2 Absolute Monocytes (0.10 - 0.60 /CUMM) 0.7 H Absolute Eosinophils (0.0 - 0.7 /CUMM) 0.3 Absolute Basophils (0.0 - 0.2 /CUMM) 0 Urines Urine Color (YEL,AMB,STR) YEL Urine Clarity (CLEAR) CLEAR Urine pH (5.0 - 8.0) 5.5 Ur Specific [place] (1.001 - 1.035) >= 1.030 Urine Protein (NEG,<30 MG/DL) NEG Urine Ketones (NEG) TRACE H Urine Nitrite (NEG) NEG Urine Bilirubin (NEG) NEG Urine Urobilinogen (0.1 - 1.0 EU/dl) 0.2 Ur Leukocyte Esterase (NEG) NEG Ur Microscopic EXAM NOT REQUIRED Urine Hemoglobin (NEG) NEG Urine Glucose (N MG/DL) NEG 06/01 06/01 0730 0730 Chemistry Sodium (137 - 145 mmol/L) 147 H Potassium (3.5 - 5.1 mmol/L) 3.5 Chloride (98 - 107 mmol/L) 114 H Carbon Dioxide (22 - 30 mmol/L) 22 Anion Gap (5 - 16) 11 BUN (9 - 20 mg/dL) 12 Creatinine (0.7 - 1.2 mg/dL) 0.7 Estimated GFR (>60 ml/min) > 60 BUN/Creatinine Ratio (7 - 25 %) 17.1 Iron (49 - 181 ug/dL) 32 L TIBC (261 - 462 ug/dL) 386 Ferritin (17.9 - 464 ng/mL) 11.9 L Total Bilirubin (0.2 - 1.3 mg/dL) 1.1 Direct Bilirubin (< 0.4 mg/dL) 0.5 H AST (17 - 59 U/L) 43 ALT (21 - 72 U/L) 43 Alkaline Phosphatase (< 127 U/L) 118 Total Protein (6.3 - 8.2 g/dL) 6.3 Albumin (3.5 - 5.0 g/dL) 2.6 L Alpha Fetoprotein Pending Vitamin B12 (239 - 931 pg/mL) 857 Methylmalonic Acid Pending RBC Folate Pending TSH (0.270 - 4.200 uIU/mL) 3.070 Free T4 (0.78 - 2.44 ng/dL) 1.22 Coagulation PT (9.4 - 12.5 SEC) 14.9 H INR (0.90 - 1.17) 1.36 H Hematology CBC w Diff NO MAN DIFF REQ WBC (4.8 - 10.8 /CUMM) 4.2 L RBC (4.70 - 6.10 /CUMM) 2.58 L Hgb (14.0 - 18.0 G/DL) 7.1 *L Hct (42 - 52 %) 22.4 L MCV (80.0 - 94.0 FL) 86.9 MCH (27.0 - 31.0 PG) 27.6 MCHC (33.0 - 37.0 G/DL) 31.7 L RDW (11.5 - 14.5 %) 17.9 H Plt Count (130 - 400 /CUMM) 83 L MPV (7.4 - 10.4 FL) 8.0 Gran % (42.2 - 75.2 %) 63.2 Lymphocytes % (20.5 - 51.1 %) 18.5 L Monocytes % (1.7 - 9.3 %) 12.6 H Eosinophils % (0 - 5 %) 4.4 Basophils % (0.0 - 2.0 %) 1.3 Absolute Granulocytes (1.4 - 6.5 /CUMM) 2.6 Absolute Lymphocytes (1.2 - 3.4 /CUMM) 0.8 L Absolute Monocytes (0.10 - 0.60 /CUMM) 0.5 Absolute Eosinophils (0.0 - 0.7 /CUMM) 0.2 Absolute Basophils (0.0 - 0.2 /CUMM) 0.1 Serology RPR Titer/FTA Pending Hepatitis A IgM Ab (NONREACTIVE) NONREACTIVE Hep Bs Antigen (NONREACTIVE) NONREACTIVE Hep B Core IgM Ab Conf (NONREACTIVE) NONREACTIVE Hepatitis C Antibody (NONREACTIVE) NONREACTIVE 05/31 1535 Chemistry Sodium (137 - 145 mmol/L) 145 Potassium (3.5 - 5.1 mmol/L) 4.0 Chloride (98 - 107 mmol/L) 113 H Carbon Dioxide (22 - 30 mmol/L) 22 Anion Gap (5 - 16) 11 BUN (9 - 20 mg/dL) 13 Creatinine (0.7 - 1.2 mg/dL) 0.7 Estimated GFR (>60 ml/min) > 60 BUN/Creatinine Ratio (7 - 25 %) 18.6 Glucose (65 - 99 mg/dL) 194 H Calcium (8.4 - 10.2 mg/dL) 8.8 Magnesium (1.6 - 2.3 mg/dL) 1.7 Total Bilirubin (0.2 - 1.3 mg/dL) 1.0 AST (17 - 59 U/L) 45 ALT (21 - 72 U/L) 40 Alkaline Phosphatase (< 127 U/L) 124 Ammonia (9 - 30 umol/L) 113 H Troponin I (<0.11 ng/ml) < 0.01 Total Protein (6.3 - 8.2 g/dL) 6.4 Albumin (3.5 - 5.0 g/dL) 2.8 L Globulin (1.9 - 4.2 gm/dL) 3.6 Albumin/Globulin Ratio (1.1 - 2.2 %) 0.8 L Coagulation PT (9.4 - 12.5 SEC) 15.0 H INR (0.90 - 1.17) 1.37 H APTT (25 - 37 SEC) 39 H Hematology CBC w Diff NO MAN DIFF REQ WBC (4.8 - 10.8 /CUMM) 5.1 RBC (4.70 - 6.10 /CUMM) 2.68 L Hgb (14.0 - 18.0 G/DL) 7.5 L Hct (42 - 52 %) 23.1 L MCV (80.0 - 94.0 FL) 86.3 MCH (27.0 - 31.0 PG) 27.8 MCHC (33.0 - 37.0 G/DL) 32.3 L RDW (11.5 - 14.5 %) 17.1 H Plt Count (130 - 400 /CUMM) 85 L MPV (7.4 - 10.4 FL) 7.7 Gran % (42.2 - 75.2 %) 64.2 Lymphocytes % (20.5 - 51.1 %) 18.6 L Monocytes % (1.7 - 9.3 %) 12.1 H Eosinophils % (0 - 5 %) 4.6 Basophils % (0.0 - 2.0 %) 0.5 Absolute Granulocytes (1.4 - 6.5 /CUMM) 3.2 Absolute Lymphocytes (1.2 - 3.4 /CUMM) 0.9 L Absolute Monocytes (0.10 - 0.60 /CUMM) 0.6 Absolute Eosinophils (0.0 - 0.7 /CUMM) 0.2 Absolute Basophils (0.0 - 0.2 /CUMM) 0 Imaging/Other Studies: 05/31/17: EKG- NSR @ 70, nl axis, borderline prolonged QT interval, NSST lat. 06/01/17: CT HEAD WITHOUT CONTRAST- Mild generalized atrophy and nonspecific periventricular white matter disease. No intracranial lesion identified. 06/01/17: US-COMPLETE ABDOMEN COMPARISON: Previous ultrasound 05/25/17.
[2017-06-02 21:45] VITALS: BP 122/58
[2017-06-03 06:16] VITALS: BP 132/56
--- NOTE | 2017-06-03 07:53 | PN- Housestaff ---
See Addendum Subjective Follow-up For: Encephalopathy Subjective: Patient was seen and examined at bedside. He reports feeling great. Denies any active complaints. No issues overnight. Review of Systems Constitutional: Reports: no symptoms. Objective Last 24 Hrs of Vital Signs/I&O Vital Signs Date Time Temp Pulse Resp B/P B/P Pulse O2 O2 Flow FiO2 Mean Ox Delivery Rate 06/03 0616 98.4 69 20 132/56 98 06/02 2145 98.1 69 19 122/58 98 Room Air 06/02 2131 69 122/58 06/02 1600 98.7 69 20 108/60 98 Room Air 06/02 1458 98.7 06/02 1359 99.0 06/02 1053 72 118/56 Intake & Output 06/03 1600 06/03 0800 06/03 0000 Intake Total 480 240 Output Total 350 Balance 480 -110 Intake, Oral 480 240 Number 2 Bowel Movements Output, Urine 350 Patient 199 lb Weight Weight Bed scale Measurement Method Physical Exam General Appearance: Alert, Oriented X3, Cooperative, No Acute Distress Skin: No Rashes, No Breakdown Skin Temp/Moisture Exam: Warm/Dry Sepsis Skin Exam (color): Normal for Ethnicity HEENT: Atraumatic Cardiovascular: Normal S1, Normal S2, No Murmurs Lungs: Clear to Auscultation, Normal Air Movement Abdomen: Soft, No Tenderness Neurological: Normal Speech Extremities: No Edema Assessment/Plan Assessment: 71-year-old male with past medical history significant for hypertension, hyperlipidemia, [place], GI bleed, ascites, type 2 diabetes mellitus, gastroesophageal reflux disease, mitral valve prolapse, RLS, cervical fusion surgery and spinal stenosis, hepatic encephalopathy on lactulose, anemia, thrombocytopenia was brought in to the ED for worsening confusion and fatigue. Assessment: 1. Encephalopathy likely worsening of hepatic encephalopathy 2. Elevated ammonia 3. History of hypertension, hyperlipidemia 4. Chronic Thrombocytopenia Plan: * Continue Lactulose 20mg TID and Rifaximin 550mg BID. Will discharge him on this regimen. * Ferrous sulphate increased to 325mg TID. * Chronic anemia - Hb improved to 8.2 today s/p 1unit pRBC. No GI bleed suspected as BUN is normal. Stool Guaiac reportedly negative. * GI recs appreciated * HOB to be elevated. * Abdominal U/S for evaluation of ascites - no ascites demonstrated. * follow up UA and UC - unremarkable * Follow up blood cultures - no growth so far. * Pending RBC folate, vitamin B12, methylmalonic acid level, alpha-fetoprotein. * Hepatitis panel - negative * RPR titre negative * TFTs wnl. * Diet: heart healthy and diabetic. * Chronic medical condition-continue lactulose, statin, vitamin K 5 mg, omeprazole, rifaximin, propranolol, pramipexole. * DVT Prophylaxis: ALPS * Code: Full Code Problem List: 1. Thrombocytopenia Pain Ratin Pain Location: none Pain Goal: Remain pain free Pain Plan: none Tomorrow's Labs & Rationales: none
[2017-06-03 09:11] LABS: ABSOLUTE BASOPHIL COUNT 0 /CUMM (0.0-0.2); ABSOLUTE EOSINOPHIL COUNT 0.3 /CUMM (0.0-0.7); ABSOLUTE GRANULOCYTE CT 3.7 /CUMM (1.4-6.5); ABSOLUTE MONOCYTE COUNT 0.7 /CUMM (0.10-0.60); BASOPHIL % 0.7 % (0.0-2.0); GRANULOCYTE % 64.4 % (42.2-75.2); MEAN CORPUSCULAR HGB CONC 32.6 G/DL (33.0-37.0); MEAN CORPUSCULAR VOLUME 85.7 FL (80.0-94.0); MEAN PLATELET VOLUME 8.1 FL (7.4-10.4); RBC DISTRIBUTION WIDTH 16.7 % (11.5-14.5); RED BLOOD CELL CT 2.92 /CUMM (4.70-6.10); WHITE BLOOD CELL COUNT 5.7 /CUMM (4.8-10.8)
[2017-06-03 10:13] LABS: PLATELET COUNT 80 /CUMM (130-400)
[2017-06-03] MEDS ORDERED: LACTULOSE20 GM/30 M PO (11:05)
[2017-06-03] MEDS ORDERED: IRON325 M3 PO (11:05)
--- NOTE | 2017-06-03 12:01 | Discharge Summary ---
Visit Information Visit Dates Admission Date: 05/31/17 Discharge Date: 06/03/17 Hospital Course Course Attending Physician: Gabo Holden MD Primary Care Physician: Reymundo Francois MD Hospital Course: Mr Smith is a 71-year-old male with past medical history significant for hypertension, hyperlipidemia, [place], GI bleed, ascites, type 2 diabetes mellitus, gastroesophageal reflux disease, mitral valve prolapse, RLS, cervical fusion surgery and spinal stenosis, hepatic encephalopathy on lactulose, anemia, thrombocytopenia was brought in to the ED for worsening confusion and fatigue. Below is a list of conditions he was seen and admitted for: 1. Encephalopathy likely worsening of hepatic encephalopathy 2. Elevated ammonia 3. Anemia Hospital Course: On admission exam, patient was pleasantly confused. The stated that his confusion had been progressing despite taking Lactulose daily. His ammonia level on admission was found to be elevated to 113. A head CT scan ruled out any acute intracranial pathology. GI was consulted and the patient was started on Lactulose 20mg TID and Rifaximin 550mg BID (this regimen has been continued on discharge), to which he responded rapidly and well. The following morning the patient had significanly improved mentation and was oriented. He had an abdominal U/S for evaluation of ascites which did not demonstrate any ascites. His hepatitis panel and RPR was checked and found to be negative. He was discharged in stable disposition with strict instructions to follow up with his PCP within one week of discharge. The patient has a history of chronic anemia for which he reportedly has had extensive workup in the past with his GI doctor. His iron studies are suggestive of iron deficiency anemia. He was already on daily ferrous sulphate which was increased to TID. On 06/02 patient's H&H was found to be 7.2/22.5. He was transfused with 1unit pRBCs. Post transfusion (06/03), his H&H was 8.2/25. Allergies: Coded Allergies: No Known Allergies (02/06/17) Significant Procedures: SERVICE DATE: 06/01/17 EXAM TYPE: RAD - XRY-PORTABLE CHEST XRAY FINDINGS: The cardiac and mediastinal contours are stable. The lungs are clear. There is no pleural effusion or pneumothorax. There is curvature of the thoracic spine to the right and degenerative change. There is degenerative change at the shoulder joints. There is evidence of previous surgery to the visualized lower cervical spine. IMPRESSION: No evidence for acute disease in the chest. SERVICE DATE: 06/01/17 EXAM TYPE: CAT - CT HEAD WO IV CONTRAST FINDINGS: There is no evidence of an extra-axial collection. There is no evidence of intra or extra-axial hemorrhage. The ventricles and extra-axial CSF spaces are slightly prominent suggestive of mild generalized atrophy. There is nonspecific periventricular white matter disease. No mass, mass effect or infarct is seen. Review at bone windows is normal. Visualized mastoid air cells, paranasal sinuses and middle ears are clear. IMPRESSION: Mild generalized atrophy and nonspecific periventricular white matter disease. No intracranial lesion identified. SERVICE DATE: 06/01/17 EXAM TYPE: US - US-COMPLETE ABDOMEN FINDINGS: No ascites is seen. IMPRESSION: Limited 4 quadrant abdominal ultrasound demonstrates no ascites. Disposition Summary Disposition Principal Diagnosis: Hepatic Encephalopathy - acute worsening Additional Diagnosis: hypertension hyperlipidemia chronic anemia chronic thrombocytopenia type 2 diabetes mellitus gastroesophageal reflux disease Discharge Disposition: home or self care Discharge Instructions General Discharge Information Code Status: Full Code Patient's Diet: Heart Healthy and Diabetic Patient's Activity: As tolerated Follow-Up Instructions/Appts: Please follow up with your PCP and cinder snapper within one week of discharge. Medications at Discharge Discharge Medications: Continue taking these medications: Simvastatin (Zocor*) 40 MG TABLET 1 Tablet ORAL Every night Comments: not given in hospital GIVEN ATORVASTATIN IN HOSPITAL Insulin Glargine,Hum.rec.anlog (Lantus Solostar) 100 UNIT/ML (3 ML) INSULN.PEN 20 Unit Inject into fatty tissue Every night Comments: NOT GIVEN IN HOSPITAL Cholecalciferol (Vitamin D3) (Vitamin D) 2,000 UNIT TABLET 1 Tablet ORAL DAILY Comments: Last Taken: 05/31/17 Time: 103 Sitagliptin Phos/Metformin HCl (Janumet 50-1,000 MG Tablet) 1 EACH TABLET 1 Tablet ORAL TWICE DAILY Qty = 60 Comments: NOT GIVEN Ergocalciferol (Vitamin D2) (Vitamin D2) 50,000 UNIT CAPSULE 1 Capsule ORAL EVERY SATURDAY Comments: NOT GIVEN Propranolol HCl (Propranolol HCl) 10 MG TABLET 1 Tablet ORAL TWICE DAILY Comments: Last Taken: 06/03/17 Time: 1045am Rifaximin (Xifaxan) 550 MG TABLET 1 Tablet ORAL TWICE DAILY Qty = 60 Comments: Last Taken: 06/03/17 Time: 1030am Lactobacillus Acidophilus (Probiotic) 10 BILLION CELL CAPSULE 1 Capsule ORAL DAILY Comments: 06/03/17 given at: 1030am Folic Acid (Folic Acid) 1 MG TABLET 1 Tablet ORAL DAILY Comments: Last Taken: 06/03/17 Time: 1030AM Milk Thistle Seed Extract (Milk Thistle) 175 MG CAPSULE 1 Capsule ORAL DAILY Comments: NOT GIVEN IN HOSPITAL Pantoprazole Sodium (Pantoprazole Sodium) 40 MG TABLET.DR 1 Tablet ORAL Every Morning Qty = 90 Comments: Last Taken: 05/27/17 Time: 930AM IV FORM GIVEN Phytonadione (Mephyton) 5 MG TABLET 1 Tablet ORAL DAILY Days = 30 Comments: Last Taken: 06/03/17 Time: 1030am Mirtazapine (Remeron) 15 MG TAB.RAPDIS 1 Tablet ORAL AT BEDTIME Qty = 14 Comments: Last Taken: 06/02/17 Time: 2130 Pramipexole Di-HCl (Mirapex) 0.125 MG TABLET 1 Tablet ORAL Every night Qty = 14 Instructions: TAKE AROUND 8 PM Comments: Last Taken: 06/02/17 Time: 2100PM Meclizine HCl (Meclizine HCl) 25 MG TABLET 1 Tablet ORAL DAILY as needed for dizziness Qty = 30 Comments: not given in hospital This prescription has been renewed Start taking the following new medications: Meclizine HCl (Meclizine HCl) 25 MG TABLET 1 Tablet ORAL DAILY as needed for Vertigo Qty = 30 No Refills The following medications have been changed: Old: Ferrous Sulfate (IRON) 325 MG (65 MG IRON) TABLET 1 Tablet ORAL DAILY New: Ferrous Sulfate (IRON) 325 MG (65 MG IRON) TABLET 1 Tablet ORAL THREE TIMES DAILY Qty = 60 Comments: Last Taken:06/03/17 Time:1500 Old: Lactulose (Lactulose) 20 GM/30 ML SOLUTION 20 Gram ORAL DAILY Days = 30 New: Lactulose (Lactulose) 20 GM/30 ML SOLUTION 20 Gram ORAL THREE TIMES DAILY Qty = 30 Comments: Last Taken: 06/03/17 Time: 1030AM Copies To: Priscila PRADO,Reymundo Frost MD Review Statement Documenting Attending: Gabo Holden MD Other Findings: 71 o/m with liver cirrhosis 2/[address] [place] [address] Analia LUX as outpatient came with change in mental status likely hepatic related encephalopathy with elevated ammonia on admission with no definitive precipitating factors and compliance is questioned. GI conuslted, s/p 1 unit of transfusion PRBC for worsening chronic anemia (no direct evidence of blood loss), recommend ongoing treatment with medical management and follow up Dr Helms as outpatient for his liver/cirrhosis care. Add meclizine prn for vertigo and dizziness. Patient is medically stable for discharge and needs close f/u with his o/p care.
[2017-06-03] MEDS ORDERED: MECLIZINE HCL25 MG PO ×2 (13:23→15:08)
[2017-06-03 14:53] VITALS: BP 108/52
== END 2017-06-03 17:20 | disposition home health service (06) | DRG 442 ==
LOC: ERH 14:39 → 2NB 16:24 → ERHI 16:24 → ENRESERV 17:46 → ENTRNSPT 18:27 → CMPTRNSPT 18:57 → 2NB 18:57 → ENTRNSPT 06-03 16:35 → CMPTRNSPT 06-03 16:46 → 2NB 06-03 17:20
PROVIDERS: Emergency Medicine; Internal Medicine; Student in an Organized Health Care Education/Training Program
PROC: 30233N1 Transfusion of Nonautologous Red Blood Cells into Peripheral Vein, Percutaneous Approach (ICD-10-PCS; principal; 2017-06-01)
DX: K72.00 Acute and subacute hepatic failure without coma (principal); E46 Unspecified protein-calorie malnutrition; D68.9 Coagulation defect, unspecified; D69.6 Thrombocytopenia, unspecified; K92.2 Gastrointestinal hemorrhage, unspecified; E11.8 Type 2 diabetes mellitus with unspecified complications; K76.6 Portal hypertension; R18.8 Other ascites; K92.1 Melena; L40.50 Arthropathic psoriasis, unspecified; K75.81 Nonalcoholic steatohepatitis (NASH); K31.89 Other diseases of stomach and duodenum; K74.60 Unspecified cirrhosis of liver; Z68.29 Body mass index [BMI] 29.0-29.9, adult; E11.9 Type 2 diabetes mellitus without complications; Z79.4 Long term (current) use of insulin; E78.5 Hyperlipidemia, unspecified; K21.9 Gastro-esophageal reflux disease without esophagitis; G25.81 Restless legs syndrome; I34.1 Nonrheumatic mitral (valve) prolapse; Z98.1 Arthrodesis status; M48.00 Spinal stenosis, site unspecified; R27.0 Ataxia, unspecified; T47.3X6A Underdosing of saline and osmotic laxatives, initial encounter; Z91.138 Patient's unintentional underdosing of medication regimen for other reason; Z91.81 History of falling; E55.9 Vitamin D deficiency, unspecified; D50.9 Iron deficiency anemia, unspecified; K63.5 Polyp of colon; E87.6 Hypokalemia; R42 Dizziness and giddiness
CPT/HCPCS: 2NSBP; 36415; 36592; 71045; 81003; 82436; 86920; 87040; 87070; 87086; 93005; 93010; 97110-GO; 97116-GO; 97162-GP; 97530-GO; J3490; P9016